=== PATIENT | male | born 1945 | race Caucasian/White ===

== ENCOUNTER 2018-04-13 17:19 | Emergency (ER) | payer OTHER ==
[2018-04-13 18:09] LABS: Urine Blood NEGATIVE (NEG); Urine Glucose NEGATIVE (NEG); Urine Protein NEGATIVE (NEG); Urine pH 5.5 (5.0-7.0)
[2018-04-13 18:19] LABS: Urine Bacteria <20 /HPF (NONE SEEN); Urine Culture Reflex Order NOT NEEDED; Urine RBC <5 /HPF (NONE SEEN)
--- NOTE | 2018-04-13 18:19 | RAD REPORT ---
EXAM DESCRIPTION: CT - Stone Protocol - 04/13/2018 6:10 pm CLINICAL HISTORY: Right-sided flank COMPARISON: None. TECHNIQUE: Axial 5 mm thick images were obtained without oral or IV contrast. The [id number] span s the entirety of the system including uppermost abdomen and lung bases. All CT scans are performed using dose optimization technique as appropriate and may include automated exposure control or mA/KV adjustment according to patient size. FINDINGS: No hydronephrosis is present and no obstructing ureteral calculi. No suspicious renal mass es. Isodense masses and pyelonephritis are not excluded on a stone protocol CT scan. No urinary bladd er suspicious finding. Renal vascular calcifications are present. Imaged portions of the liver, spleen and pancreas show no suspicious findings on non-contrast imaging . Cholecystectomy clips are present. No biliary tree dilatation. A mild, symmetric adrenal gland full ness is present doubtful as being clinically significant. Vigil of the stomach appear thickened; however, there is almost no content within the lumen. Assessme nt is limited. No small bowel dilatation. Moderate stool volume scattered throughout the colon. Sigmo id anastomotic site shows no acute finding. A right inguinal hernia is present. Small bowel extends into the origin of each inguinal canal. No wa ll thickening or edema. No congestion of the adjacent fat. No free air, free fluid or inflammatory st randing. Disc and bony degenerative changes are present. Dense arterial tree calcifications are present. Scarring and/ or atelectasis present anterior left lung base. No pericardial effusion. IMPRESSION: No hydronephrosis, obstructing calculus or acute finding identifiable. Isodense masses and pyelonephritis are not excluded on stone protocol technique. Right inguinal hernia is present. A loop of small bowel extends into the origin of each inguinal brittney l. The involved bowel wall is not thickened or edematous and there is no congestion or edema in the a djacent fat. Significance is questionable. Moderate stool volume throughout the colon. No acute colon process.
--- NOTE | 2018-04-13 18:58 | ER ---
Nurse's Notes [facility] Name: Marcos Macdonald Age: 72 yrs Sex: Male : 1945 Arrival Date: 04/13/2018 Time: 17:23 Bed 20 Private MD: Manuel Sen Diagnosis: Low back pain Presentation: 04/13 17:27 Presenting complaint: Patient states: I have been having right lower back pain for the la1 last week and for the last few months I have been having urinary problems where I try to pee and it feels like I am done then have to go again a few minutes later. Transition of care: patient was not received from another setting of care. Onset of symptoms was April 13, 2018. Risk Assessment: Do you want to hurt yourself or someone else? Patient reports no desire to harm self or others. Initial Sepsis Screen: Does the patient meet any 2 criteria? No. Patient's initial sepsis screen is negative. Does the patient have a suspected source of infection? No. Patient's initial sepsis screen is negative. Care prior to arrival: None. 17:27 Method Of Arrival: Ambulatory la1 17:27 Acuity: KERRY 3 la1 Historical: - Allergies: 17:29 NKA; la1 - PMHx: 17:29 Diabetes - NIDDM; Hyperlipidemia; Hypertension; Myocardial infarction; la1 - Immunization history:: Adult Immunizations up to date. - Social history:: Smoking status: Patient uses tobacco products, smokes two packs cigarettes per day. - Ebola Screening: : No symptoms or risks identified at this time. Screenin:53 Abuse screen: Denies threats or abuse. Denies injuries from another. Nutritional aj screening: No deficits noted. Tuberculosis screening: No symptoms or risk factors identified. Fall Risk None identified. Assessment: 18:53 General: Appears in no apparent distress. comfortable, Behavior is calm, cooperative, aj appropriate for age. Pain: Denies pain. Neuro: Level of Consciousness is awake, alert, obeys commands, Oriented to person, place, time, situation, Appropriate for age. Respiratory: Airway is patent Respiratory effort is even, unlabored, Respiratory pattern is regular, symmetrical. : Reports urgency. Derm: Skin is intact, is healthy with good turgor, Skin is pink, warm \T\ dry. normal. Vital Signs: 17:28 BP 133 / 66; Pulse 90; Resp 16; Temp 97.8(O); Pulse Ox 100% on R/A; Weight 68.04 kg; la1 Height 5 ft. 8 in. (172.72 cm); 17:28 Body Mass Index 22.81 (68.04 kg, 172.72 cm) la1 ED Course: 17:23 Patient arrived in ED. es 17:23 Manuel Sen MD is Private Physician. es 17:28 Triage completed. la1 17:29 Arm band placed on right wrist. la1 17:31 Ethel Akins, RN is Primary Nurse. aj 17:34 Magdi Butler MD is Attending Physician. gs 18:10 CT Stone Protocol In Process Unspecified. EDMS 18:53 Patient has correct armband on for positive identification. aj 18:53 No provider procedures requiring assistance completed. IV discontinued, intact, aj bleeding controlled, No redness/swelling at site. Pressure dressing applied. Administered Medications: No medications were administered Outcome: 18:58 Discharge ordered by . 19:08 Discharged to home ambulatory. aj 19:08 Condition: good 19:08 Discharge instructions given to patient, Instructed on discharge instructions, follow up and referral plans. medication usage, Demonstrated understanding of instructions, follow-up care, medications, Prescriptions given X 1. 19:09 Patient left the ED. aj Signatures: Dispatcher [employer] Ethel Bueno, RN Yulia Laguna Lee RN RN la1 Magdi Butler MD MD
--- NOTE | 2018-04-13 18:58 | EDPHYS ---
Physician Documentation [facility] Name: Marcos Macdonald Age: 72 yrs Sex: Male : 1945 Arrival Date: 04/13/2018 Time: 17:23 Bed 20 Private MD: Manuel Sen ED Physician Magdi Butler HPI: 04/13 18:53 This 72 yrs old Male presents to ER via Ambulatory with complaints of Back gs Pain. 18:53 The patient presents with pain that is acute. The symptoms are located in the right low gs back. Onset: The symptoms/episode began/occurred 2 week(s) ago. The pain radiates to the lateral aspect of right thigh. Associated signs and symptoms: Pertinent negatives: abdominal pain, chest pain, incontinence. Modifying factors: the patient symptoms are aggravated by any movement. Severity of symptoms: At their worst the symptoms were moderate, in the emergency department the symptoms have improved, mildly. The patient has not experienced similar symptoms in the past. Historical: - Allergies: 17:29 NKA; la1 - PMHx: 17:29 Diabetes - NIDDM; Hyperlipidemia; Hypertension; Myocardial infarction; la1 - Immunization history:: Adult Immunizations up to date. - Social history:: Smoking status: Patient uses tobacco products, smokes two packs cigarettes per day. - Ebola Screening: : No symptoms or risks identified at this time. ROS: 18:53 All other systems are negative. gs 18:57 Abdomen/GI: Negative for bowel incontinence. gs 18:57 : Positive for urgency, no retention. Exam: 18:53 Head/Face: Normocephalic, atraumatic. Eyes: Pupils equal round and reactive to light, gs extra-ocular motions intact. Lids and lashes normal. Conjunctiva and sclera are non-icteric and not injected. Cornea within normal limits. Periorbital areas with no swelling, redness, or edema. ENT: Nares patent. No nasal discharge, no septal abnormalities noted. Tympanic membranes are normal and external auditory canals are clear. Oropharynx with no redness, swelling, or masses, exudates, or evidence of obstruction, uvula midline. Mucous membranes moist. Neck: Trachea midline, no thyromegaly or masses palpated, and no cervical lymphadenopathy. Supple, full range of motion without nuchal rigidity, or vertebral point tenderness. No Meningismus. Chest/axilla: Normal chest wall appearance and motion. Nontender with no deformity. No lesions are appreciated. Cardiovascular: Regular rate and rhythm with a normal S1 and S2. No gallops, murmurs, or rubs. Normal PMI, no JVD. No pulse deficits. Respiratory: Lungs have equal breath sounds bilaterally, clear to auscultation and percussion. No rales, rhonchi or wheezes noted. No increased work of breathing, no retractions or nasal flaring. Abdomen/GI: Soft, non-tender, with normal bowel sounds. No distension or tympany. No guarding or rebound. No evidence of tenderness throughout. MS/ Extremity: Pulses equal, no cyanosis. Neurovascular intact. Full, normal range of motion. Neuro: Awake and alert, GCS 15, oriented to person, place, time, and situation. Cranial nerves II-XII grossly intact. Motor strength 5/5 in all extremities. Sensory grossly intact. Cerebellar exam normal. Normal gait. 18:53 Constitutional: The patient appears alert, awake. 18:53 Back: CVA tenderness, that is mild, is noted on the right. Vital Signs: 17:28 BP 133 / 66; Pulse 90; Resp 16; Temp 97.8(O); Pulse Ox 100% on R/A; Weight 68.04 kg; la1 Height 5 ft. 8 in. (172.72 cm); 17:28 Body Mass Index 22.81 (68.04 kg, 172.72 cm) la1 MDM: 17:45 Patient medically screened. 18:53 Differential diagnosis: Abdominal Aortic Aneurysm chronic back pain, ruptured disc, gs sprain. Data reviewed: vital signs, nurses notes. Response to treatment: the patient's symptoms have mildly improved after treatment. 04/13 17:48 Order name: Urine Microscopic Only; Complete Time: 18:20 04/13 17:58 Order name: Urine Dipstick--Ancillary (enter results); Complete Time: 18:20 eb 04/13 17:48 Order name: CT Stone Protocol; Complete Time: 18:20 04/13 17:48 Order name: Urine Dipstick-Ancillary (obtain specimen); Complete Time: 19:04 Administered Medications: No medications were administered Disposition: 04/13/18 18:58 Discharged to Home. Impression: Low back pain. - Condition is Stable. - Discharge Instructions: Back Pain, Adult. - Prescriptions for Prednisone 20 mg Oral Tablet - take 1 tablet by ORAL route once daily for 5 days; 5 tablet. - Medication Reconciliation Form, Thank You Letter, Antibiotic Education, Prescription Opioid Use form. - Follow up: Private Physician; When: 2 - 3 days; Reason: Re-evaluation by your physician. Signatures: Dispatcher [employer] EDEthel Wallis RN RN aj Attema, Lee, RN RN la1 Magdi Butler MD MD gs Corrections: (The following items were deleted from the chart) 19:09 18:58 04/13/2018 18:58 Discharged to Home. Impression: Low back pain. Condition is aj Stable. Forms are Medication Reconciliation Form, Thank You Letter, Antibiotic Education, Prescription Opioid Use. Follow up: Private Physician; When: 2 - 3 days; Reason: Re-evaluation by your physician. gs
[2018-04-13 19:19] VITALS: BP 133/66; TEMP 97.8; O2SAT 100
== END 2018-04-13 19:09 | disposition home or self-care (01) ==
LOC: ER 17:19
DX: M54.5 Low back pain (principal); E11.9 Type 2 diabetes mellitus without complications; E78.5 Hyperlipidemia, unspecified; I10 Essential (primary) hypertension; F17.210 Nicotine dependence, cigarettes, uncomplicated
CPT/HCPCS: 74176; 76377; 81003; 81015; 99283

== ENCOUNTER 2019-02-09 11:49 | Day surgery (SDC) | payer OTHER ==
--- NOTE | 2019-02-03 08:55 | RAD REPORT ---
EXAM DESCRIPTION: RAD - Chest Pa And Lat (2 Views) - 02/03/2019 8:46 am CLINICAL HISTORY: preop Chest pain. COMPARISON: CHEST PA AND LAT 2 VIEW dated 09/18/2015; CHEST SINGLE VIEW dated 09/15/2015; CHEST SINGLE VIEW dated 09/10/2015; CHEST PA AND LAT 2 VIEW dated 10/03/2014; Lung Cancer Screening CT W/O dated 12/22 FINDINGS: Emphysematous changes are present throughout the lungs. Small linear area of scarring or a telectasis seen in the lingula. The heart is normal in size. Costophrenic angle blunting is present l eft, likely pleural thickening. IMPRESSION: Prominent COPD.
[2019-02-03 09:40] LABS: Absolute Lymphocytes (CBC) 2.7 K/uL (0.7-4.9); Absolute Monocytes 0.6 K/uL (0.1-1.3); Absolute Neutrophil 4.9 K/uL (1.8-8.0); Basophils % 0.3 % (0-1.3); Eosinophils % 0.7 % (0-4.4); Hematocrit 48.4 % (39.6-49.0); Lymphocytes % 32.9 % (15.3-44.8); Monocytes % 6.8 % (3.3-12.3); RBC Red Blood Cell Count 4.86 M/uL (4.33-5.43)
[2019-02-03 09:46] LABS: Protime INR 0.9
[2019-02-03 10:05] LABS: Potassium 4.1 mmol/L (3.5-5.1)
--- NOTE | 2019-02-04 11:37 | EKG ---
Test Date: 2019-02-03 Test Time: 08:31:26 Intake Man: ROB MEASUREMENT RESULTS: Intervals: Rate: 94 OK: 142 QRSD: 82 QT: 342 QTc: 427 [place]: P: 70 OK: 142 QRS: 66 T: 50 INTERPRETIVE STATEMENTS: Sinus rhythm with occasional premature ventricular complexes Otherwise normal ECG Compared to ECG 11/11/2016 11:06:19 Ventricular premature complex(es) now present Electronically Signed On 02-04-19 07:39:04 CDT by Jay Castañeda
[~2019-02-09 11:49] MED LIST: HEPA 1000U/500MLS 2,000 UNIT/1,000 ML BAG IV ONE
[2019-02-09] MEDS ORDERED: NA CHLORIDE 0.9% 500 ML ONE (12:12)
[2019-02-09] MEDS ORDERED: LIDOCAINE 1% MPF 30 ML VIAL ONE (12:37)
[2019-02-09] MEDS ORDERED: HEPA 1000U/500MLS 1,000 UNIT/500 ML BAG IV ONE (12:38)
[2019-02-09] MEDS ORDERED: MIDAZOLAM HCL 2 MG/2 ML INJ ONE (12:47)
[2019-02-09] MEDS ORDERED: FENTANYL CITR 100 MCG/2 ML ONE ×2 (12:47→13:19)
[2019-02-09 15:13] VITALS: BP 118/68
[2019-02-09 15:27] VITALS: O2SAT 100
--- NOTE | 2019-02-09 20:43 | OP ---
Date of Procedure: 02/09/2019 Surgeon: Kaushik Tai MD Dialysis Equipment Technician: Michael Kolb and Sheila Caicedo. Procedures: Abdominal angiogram with runoff with selective bilateral common iliac artery angiogram. Indication: PAD and claudication. History: Mr. Macdonald is a 73-year-old male. He has diabetes, hypertension, dyslipidemia, PAD, admi tted for angiography secondary to PAD and claudication. He was prepped and draped in the routine cholo rile fashion. He was given 4 mg of Versed for IV sedation. 6-Stateless sheath was introduced in the ri t common femoral artery. Abdominal angiogram with runoff showed a possible stenosis in the proxima l left common iliac. I inserted a sheath in the left groin 6-Stateless as well. Angiography was done. I used a Glidewire to cross the lesion, and I used a 6-Stateless JR4, which crossed the lesion. I chelsey ured the gradient before and after the lesion, and there were no gradient. I estimated it to be abou t a 40% stenosis with increased calcifications. He had normal renals. He had a small infrarenal abd ominal aortic aneurysm, probably about 3 cm. Overall, angiography showed 100% occlusion of the right SFA, multiple 50-70% stenosis in the left SFA, diffuse plaquing distally, diffuse plaquing in the ri t common iliac artery. The patient tolerated the procedure well. There were no complications. Blood Loss: 10 cc. Anesthesia: Total conscious sedation was 45 minutes. Final Diagnosis: Severe peripheral arterial disease. Plan: For now is for medical therapy. He will hold Glucophage for 48 hours. Start statin. Conside r bilateral fem-pop if his symptoms persist. NB/MODL Voice ID: [id number] Report ID: [id number]
--- NOTE | 2019-02-10 17:20 | OP ---
Date of Procedure: 02/09/2019 Surgeon: Kaushik Tai MD Break Out Man: Michael Kolb and Shani Caicedo. Procedures: Abdominal angiogram with runoff with bilateral selective common femoral artery angiogram . Indications: Peripheral arterial disease and claudication. History: Mr. Macdonald is 73, has diabetes, hypertension, dyslipidemia, tobacco abuse, documented CAD . The last time we investigated him was in 2017, came back with worsening symptoms. 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 He was given 2 mg of Versed for IV sedation. He was pre pped and draped in the routine sterile fashion. A 6-[place] Island[place] sheath was initially introduced in the [facility] common femoral artery. Abdominal angiogram with runoff was done using a pigtail catheter. This showed a complete occlusion of his right SFA. He had diffuse disease in the left SFA. He had diffus e plaquing of the right common iliac artery. He had a small abdominal aortic aneurysm. He has diffu se disease bilaterally below the knees. He had what appeared to be a stenosis on the left common opal ac with heavy calcification. I proceeded to put a sheath, a 6-[place] Islander, in the left common femoral art arturo and across that lesion with a Neftali catheter, measured the gradient across the stenosis on the left common iliac, and there were no gradient. Angiography was done selectively in the right common iliac and the left common iliac to determine the severity of disease [id number]. Both popliteal were open, but below that, there were diffuse disease. There were no complications. Both groins were closed using Angio-Seal. Blood Loss: 10 cc. Final Diagnosis: Severe peripheral arterial disease. Plan: Right femoral-popliteal initially and then possible medical therapy for the left leg. The pat ient will be given a CD, and he will have an appointment with Dr. Pina in the near future at [facility]. Anesthesia: Total conscious sedation was 45 minutes. NB/MODL Voice ID: [id number] Report ID: [id number]
== END 2019-02-09 15:44 | disposition home or self-care (01) ==
LOC: CCL 11:49
DX: E11.51 Type 2 diabetes mellitus with diabetic peripheral angiopathy without gangrene (principal); I70.218 Atherosclerosis of native arteries of extremities with intermittent claudication, other extremity; I10 Essential (primary) hypertension; J44.9 Chronic obstructive pulmonary disease, unspecified; I65.9 Occlusion and stenosis of unspecified precerebral artery; I25.10 Atherosclerotic heart disease of native coronary artery without angina pectoris; F17.210 Nicotine dependence, cigarettes, uncomplicated; Z79.82 Long term (current) use of aspirin; Z79.84 Long term (current) use of oral hypoglycemic drugs; Z79.51 Long term (current) use of inhaled steroids; Z79.899 Other long term (current) drug therapy; Z95.5 Presence of coronary angioplasty implant and graft
CPT/HCPCS: 93005; 85025; 80048; 36415; 85610; 82962; 85730; 71046; 36200; 75630; C1893; J2250; J3010 ×2

== ENCOUNTER 2020-01-20 11:08 | Emergency (ER) | payer OTHER ==
[2020-01-20] MEDS ORDERED: LIDOCAINE 1% W/EPI 1:100,000 MDV 20 ML VIAL ONE (11:25)
--- OUTSIDE RECORDS SUMMARY | 2020-01-20 11:52 | XMS REPORT | Clinical Summary ---
:1945 Author Organization [facility] Address [address] [place] [address] Care Team Providers Name Role Phone MD Mckinley Primary Care Provider Allergies Active Allergy Reactions Severity Noted Date Comments Azithromycin Shortness Of Breath High Medications Medication Sig Dispensed Refills Start Date End Date Status metFORMIN Take 1,000 mg 0 Active (GLUCOPHAGE) 1000 MG by mouth 2 tablet (two) times daily with breakfast and dinner. doxycycline hyclate Take 50 mg by 0 Active 50 mg Tab mouth daily. lisinopril Take 10 mg by 0 Activ e (PRINIVIL,ZESTRIL) 10 mouth daily. MG tablet glipiZIDE (GLUCOTROL) Take 5 mg by 0 Active 5 MG tablet mouth daily. tamsulosin (FLOMAX) Take 0.4 mg by 0 Active 0.4 mg Cap 24 hr mouth daily. capsule finasteride (PROSCAR) Take 5 mg by 0 Active 5 mg tablet mouth daily. clopidogrel (PLAVIX) Take 75 mg by 0 Active 75 mg tablet mouth daily. lovastatin (MEVACOR) Take 20 mg by 0 Active 20 MG tablet mouth nightly. budesonide-formoterol Inhale 2 puffs 0 Active (SYMBICORT) 160-4.5 by mouth via mcg/actuation inhaler inhaler 2 (two) times daily. tiotropium (SPIRIVA) Inhale 18 mcg 0 Active 18 mcg inhalation by mouth via capsule inhaler daily. multivitamin per Take 1 tablet 0 Active tablet by mouth daily. omega-3 fatty Take 1 g by 0 Acti ve acids-fish oil mouth daily. 340-1,000 mg Cap per capsule cinnamon bark Take 1,000 mg 0 Ac tive (CINNAMON) 500 mg by mouth capsule daily. albuterol HFA Inhale 1 puff 0 Ac tive (VENTOLIN HFA) 90 by mouth via mcg/actuation inhaler inhaler every 6 (six) hours as needed for Wheezing. niacin 500 MG tablet Take 500 mg by 0 Active mouth daily with breakfast. cholecalciferol, Take 2,000 0 Ac tive vitamin D3, 2,000 Units by mouth unit Tab daily. cyanocobalamin 1000 Take 1,000 mcg 0 Active MCG tablet by mouth daily. aspirin 81 MG EC Take 81 mg by 0 Active tablet mouth daily. cyclobenzaprine Take 5 mg by 0 A ctive (FLEXERIL) 5 MG mouth 2 (two) tablet times daily as needed. traMADol (ULTRAM) 50 Take 1 tablet 30 tablet 0 02/26/2019 Active mg tablet (50 mg total) by mouth 2 (two) times daily as needed. Max Daily Amount: 100 mg traMADol (ULTRAM) 50 Take 50 mg by 0 02/26 Discontinued mg tablet mouth 2 (two) 9 times daily as needed. Active Problems Problem Noted Date Peripheral vascular disease, unspecified 02/25/2019 PVD (peripheral vascular disease) 02/18/2019 COPD (chronic obstructive pulmonary disease) Hypertension Diabetes mellitus type 2, noninsulin dependent Hyperlipidemia Encounters Date Type Specialty Care Team Description 03/18/2019 Hospital Encounter Cardiology Silvana, Swelling Mumtaz Anand MD 03/18/2019 Office Visit Cardiology Silvana Swelling (Prima ry Dx); Mumtaz Anand Post-operati ve state 03/08/2019 Office Visit Cardiology Silvana, Postoperative s kumar Mumtaz Anand (Primary Dx) 02/25/2019 Travel 02/24/2019 Anesthesia Event Jewel Benitez, RAI 02/24/2019 Surgery Silvana, BYPASS,FEMORAL- [place] NISHANT Ji MD 02/24/2019 - Hospital Encounter Cardiology Silvana, 02/26/2019 MD Stu Ji Lubna Syed, MD 02/24/2019 Travel 02/18/2019 Hospital Encounter Radiology Mumtaz Pina MD 02/18/2019 Hospital Encounter Mumtaz Pina MD 02/18/2019 Office Visit Cardiology Silvana, Chronic obstruc tive pulmonary disease, unspecified COPD type (HCC); Mumtaz Anand, Essential hy pertension; Diabetes arron type 2, noninsulin dependent (HCC); Hyperlipidemia, unspecified hyperlipidemia type; PVD (peripheral vascular disease) (HCC) 02/18/2019 Orders Only General Internal Medicine after 01/19/2019 Family History Medical History Relation Name Comments Diabetes Mother Relation Name Status Comments Mother Social History Tobacco Use Types Packs/Day Years Used Date Current Every Day Smoker 1.5 57 Smokeless Tobacco: Never Used Tobacco Cessation: Ready to Quit: No; Co unseling Given: Yes Alcohol Use Drinks/Week oz/Week Comments No Alcohol Habits Answer Date Recorded How often do you have a drink containing alcohol? Never 02/18/2019 How many drinks containing alcohol do you have on a typical Not asked day when you are drinking? How often do you have six or more drinks on one occasion? No t asked Sex Assigned at Date Recorded Not on file Job Start Date Occupation Industry Not on file Not on file Not on file Travel History Travel Start Travel End No recent travel history available. Last Filed Vital Signs Vital Sign Reading Time Taken Blood Pressure 127/58 03/18/2019 9:39 AM CDT Pulse 90 03/18/2019 9:39 AM CDT Temperature 36.1 C (96.9 F) 03/18/2019 9:39 AM CDT Respiratory Rate 14 03/18/2019 9:39 AM CDT Oxygen Saturation 98% 03/18/2019 9:39 AM CDT Inhaled Oxygen Concentration - - Weight 63.5 kg (140 lb) 03/18/2019 9:39 AM CDT Height 172.7 cm (5' 8") 03/18/2019 9:39 AM CDT Body Mass Index 21.29 03/18/2019 9:39 AM CDT Plan of Treatment Not on file Implants Implanted Type Area Metal Tile Setter Device Shelf Model / Serial Identifier Expiration / Lot Date Sealptfe Gelatin Sealed Ultrathin Wall Straight Wrapped Full y Reinforced Right: TERUMO VASCUTEK 12/07/2019 [id number] / Implanted: Qty: 1 on 02/24/2019 by Mumtaz Pina MD Leg [id number] / [id number] Procedures Procedure Name Priority Date/Time Associated Diagnosis Comme nts PERIPHERAL VASCULAR 03/18/2019 9:20 REPORT - SCAN PM CDT VENOUS DOPPLER LEG, Routine 03/18/2019 11:44 Swelling Resu lts for this RIGHT AM CDT procedure are i n the results section. RHYTHM STRIP - SCAN 03/02/2019 3:14 PM CDT RHYTHM STRIP - SCAN 03/02/2019 7:50 AM CDT POCT-GLUCOSE METER Routine 02/26/2019 8:10 Resul ts for this AM CDT procedure are i n the results section. CBC W/PLT COUNT & Routine 02/26/2019 5:23 Result s for this AUTO DIFFERENTIAL AM CDT procedure are in the results section. BASIC METABOLIC PANEL Routine 02/26/2019 5:23 Re sults for this (7) AM CDT procedure are i n the results section. CBC W/PLT COUNT & Routine 02/26/2019 5:23 Result s for this AUTO DIFFERENTIAL AM CDT procedure are in the results section. POCT-GLUCOSE METER Routine 02/25/2019 10:15 Resul ts for this PM CDT procedure are i n the results section. TRANSFUSION SERVICE 02/25/2019 6:00 REPORT - SCAN PM CDT CBC W/PLT COUNT & Routine 02/25/2019 8:58 Result s for this AUTO DIFFERENTIAL AM CDT procedure are in the results section. BASIC METABOLIC PANEL Routine 02/25/2019 8:58 Re sults for this (7) AM CDT procedure are i n the results section. CBC W/PLT COUNT & Routine 02/25/2019 8:58 Result s for this AUTO DIFFERENTIAL AM CDT procedure are in the results section. HGB/HCT (H&H) - STAT Routine 02/24/2019 1:00 Res ults for this LAB PM CDT procedure are i n the results section. GLUCOSE-STAT LAB Routine 02/24/2019 1:00 Results for this PM CDT procedure are i n the results section. POTASSIUM-STAT LAB Routine 02/24/2019 1:00 Resul ts for this PM CDT procedure are i n the results section. SODIUM NA-STAT LAB Routine 02/24/2019 1:00 Resul ts for this PM CDT procedure are i n the results section. BLOOD GAS, ARTERIAL Routine 02/24/2019 1:00 Resu lts for this PM CDT procedure are i n the results section. RRL CRITICAL LABS Routine 02/24/2019 1:00 Result s for this (ABG,NA,K,H&H,GLUCOSE PM CDT proced ure are in ) the results section. HGB/HCT (H&H) - STAT STAT 02/24/2019 12:04 Res ults for this LAB PM CDT procedure are i n the results section. GLUCOSE-STAT LAB STAT 02/24/2019 12:04 Results for this PM CDT procedure are i n the results section. POTASSIUM-STAT LAB STAT 02/24/2019 12:04 Resul ts for this PM CDT procedure are i n the results section. SODIUM NA-STAT LAB STAT 02/24/2019 12:04 Resul ts for this PM CDT procedure are i n the results section. BLOOD GAS, ARTERIAL STAT 02/24/2019 12:04 Resu lts for this PM CDT procedure are i n the results section. CALCIUM, IONIZED STAT 02/24/2019 12:04 Results for this PM CDT procedure are i n the results section. RRL CRITICAL LABS STAT 02/24/2019 12:04 Result s for this (ABG,NA,K,H&H,GLUCOSE PM CDT proced ure are in ) the results section. PREPARE RBC STAT 02/24/2019 12:01 Results for this PM CDT procedure are i n the results section. ABORH, MANUAL STAT 02/24/2019 10:21 Results fo r this AM CDT procedure are i n the results section. BYPASS,FEMORAL-POPLIT 02/24/2019 9:45 Peripheral vasc ular EAL AM CDT disease, unspecified (HCC) Special Needs (ICU BED NEEDED) TRANSFUSION SERVICE REPORT - 02/19/2019 6:02 PM CDT SCAN XR CHEST 2 VIEWS Routine 02/18/2019 1:20 PM CDT Results for this procedure are i n the results section . CBC W/PLT COUNT & AUTO Routine 02/18/2019 12:19 PM CDT Results for this DIFFERENTIAL procedure are i n the results section . TYPE AND SCREEN, AUTOMATED Routine 02/18/2019 12:19 PM CDT Results for this procedure are i n the results section . COMPREHENSIVE METABOLIC Routine 02/18/2019 12:19 PM CDT Results for this PANEL procedure are i n the results section . LIPID PANEL Routine 02/18/2019 12:19 PM CDT Resu lts for this procedure are i n the results section . HEMOGLOBIN A1C Routine 02/18/2019 12:19 PM CDT Re sults for this procedure are i n the results section . CBC W/PLT COUNT & AUTO Routine 02/18/2019 12:19 PM CDT Results for this DIFFERENTIAL procedure are i n the results section . PROTHROMBIN TIME/INR Routine 02/18/2019 12:19 PM CDT Results for this procedure are i n the results section . PLATELET AGGREGATION: Routine 02/18/2019 12:19 PM CDT Results for this FUNCTION SCREEN procedure ar e in the results section . ECG 12-LEAD Routine 02/18/2019 11:57 AM CDT Procedure Note - Interface, External Ris In - 02/18/2019 3:58 PM CDT Ventricular Rate 98 BPM Atrial Rate 98 BPM P-R Interval 146 ms QRS Duration 90 ms Q-T Interval 336 ms QTC Calculation(Bazett) 428 ms P Cordell 80 degrees R Cordell 56 degrees T Cordell 57 degrees Sinus rhythm with Premature atrial complexes Otherwise normal ECG No previous ECGs available ECG 12-LEAD Routine 02/18/2019 11:57 AM CDT Resu lts for this procedure are in the results section . after 01/19/2019 Results PERIPHERAL VASCULAR REPORT - SCAN (03/18/2019 9:20 PM CDT) Narrative Performed At This result has an attachment that is no t available. Venous doppler leg, right (03/18/2019 11:44 AM CDT) [facility] ECHO HEAR TLAB MKCKESSON CPACS Specimen Impressions Performed At Right Impression [facility] ECHO HEARTLAB [facility] CPACS 1. There is no deep venous obstruction in the common femoral, profunda femoral, femoral, popliteal, posterior tibial or peroneal veins. 2. There is no superficial venous obstruction in the great saphenous vein. 3. There are two nonvascular fluid collections seen on the medial aspect of the knee. Number one is next to the bypass graft with dimensions 2.2 cm x 2.0 cm x 1.3 cm. Number 2 is just under the skin with a measurement of 2.4 cm x 1.4 cm x 2.1 cm. 4. Spectral analysis of the waveforms show normal respirophasic variation with the visualized venous segments. Left Impression Not ordered. Conclusions Summary Venous duplex imaging and compression of the right lower extremity was performed. The veins were adequately visualized. The right venous system was patent and compressible with no evidence of thrombus. The venous Doppler waveforms were phasic with resp iration. Incidental finding: There are two nonvascular fluid collections seen on the medial aspect of the knee. Number one is next to the bypass graft with dimensions 2.2 cm x 2.0 cm x 1.3 cm. Number 2 is just under the skin with a measurement of 2.4 cm x 1.4 cm x 2.1 cm. Signature Velocities are measured in cm/s ; Diameters are measured in cm Narrative Performed At PV LAB - Lower Extremities DVT Study [facility] ECHO HEARTLAB [facility] Demographics Patient Name MARCOS MACDONALD Date of Study03/18/2019 [id number] Age 73 Visit Number [id number] Male Accession Number [id number] of Birth1945 ReferringSilvana Pandya MD Room Number Physician SonographKelton Medrano. Interpreting Cachorro Wilson MD T, ARDMSPhysician Procedure Type of Study: Veins: Lower Extremities DVT Study, VENOUS DOPPLER LEG, RIGHT. Indications for Study:Leg swelling. Patient Status:Routine. Study Location:Vascular Lab. Technical Quality:Adequate visualization . - Results were reported to:doctors nurse at 12:00 on 03/18/2019.. Risk Factors History of Disease +---------+----+ + !Diagnosis!Date!Comments ! +---------+----+ + !Other!!COPD, CAD, DM, PVD, SMOKER ! +---------+----+ + Procedure Note Interface, External Ris In - 03/18/2019 2:12 PM CDT PV LAB - Lower Extremities DVT Study Demographics Patient Name MARCOS MACDONALD Date of Study 03/18/2019 Age 73 Visit Number [id number] Gender Male Accession Number [id number] Date of 1945 Referring Silvana Pandya MD Room Number Physician Shake Out Worker Marcos Medrano. Interpreting Cachorro Wilson MD RVT, ARS Physician Procedure Type of Study: Veins: Lower Extremities DVT Study, TONY OUS DOPPLER LEG, RIGHT. Indications for Study:Leg swelling. Patient Status:Routine. Study Location:Vascular Lab. Technical Quality:Adequate visualization . - Results were reported to:silas duron se at 12:00 on 03/18/2019.. Risk Factors History of Disease +---------+----+ + !Diagnosis!Date!Comments ! +---------+----+ + !Other ! !COPD, CAD, DM, PVD, SMOK ER ! +---------+----+ + Impressions Right Impression 1. There is no deep venous obstruction i n the common femoral, profunda femoral, femoral, popliteal, posterior t ibial or peroneal veins. 2. There is no superficial venous obstru ction in the great saphenous vein. 3. There are two nonvascular fluid colle ctions seen on the medial aspect of the knee. Number one is next to the byme ss graft with dimensions 2.2 cm x 2.0 cm x 1.3 cm. Number 2 is just under the skin with a measurement of 2.4 cm x 1.4 cm x 2.1 cm. 4. Spectral analysis of the waveforms sh ow normal respirophasic variation with the visualized venous segments. Left Impression Not ordered. Conclusions Summary Venous duplex imaging and compression o f the right lower extremity was performed. The veins were adequately vi sualized. The right venous system was patent and compressible with no diego dence of thrombus. The venous Doppler waveforms were phasic with resp iration. Incidental finding: There are two nonva scular fluid collections seen on the medial aspect of the knee. Number o ne is next to the bypass graft with dimensions 2.2 cm x 2.0 cm x 1.3 cm. Nu mber 2 is just under the skin with a measurement of 2.4 cm x 1.4 cm x 2.1 cm. Signature Velocities are measured in cm/s ; Diamet ers are measured in cm Performing Organization Address City/[facility] Phone Number [facility] ECHO HEARTLAB MK[facility]ESSON CPACS RHYTHM STRIP - SCAN (03/02/2019 3:14 PM CDT)Only the most recent of2 results within the time period is included. Narrative Performed At This result has an attachment that is no t available. POC-Glucose meter (02/26/2019 8:10 AM CDT)Only the most recent of2 results within the time period is included. POC-Glucose Meter 162 (H)Comment: TESTED AT 70 - 110 mg/dL [facility] [address] [facility] [address] Specimen Blood Performing Organization Address City/[facility]/Zipcode Phone Number [address] [address] CENTER CBC with platelet count + automated diff (02/26/2019 5:23 AM CDT)Only the most recent of3 resultswithin the time period is included. WBC 9.6 3.5 - 10.5 K/L [facility] RBC 4.23 (L) 4.63 - 6.08 M/L [facility] Hemoglobin 14.0 13.7 - 17.5 GM/DL [facility] Hematocrit 41.9 40.1 - 51.0 % [facility] MCV 99.1 (H) 79.0 - 92.2 fL [facility] MCH 33.1 (H) 25.7 - 32.2 pg [facility] MCHC 33.4 32.3 - 36.5 GM/DL [facility] RDW 13.2 11.6 - 14.4 % [facility] Platelets 162 150 - 450 K/CU MM [facility] MPV 9.4 9.4 - 12.4 fL [facility] nRBC 0 0 - 0 /100 WBC [facility] % Neutros 60 % [facility] % Lymphs 28 % [facility] % Monos 10 % [facility] % Eos 1 % [facility] % Baso 0 % [facility] # Neutros 5.80 (H) 1.78 - 5.38 K/L [facility] # Lymphs 2.74 1.32 - 3.57 K/L [facility] # Monos 0.96 (H) 0.30 - 0.82 K/L [facility] # Eos 0.08 0.04 - 0.54 K/L [facility] # Baso 0.03 0.01 - 0.08 K/L [facility] Immature Granulocytes-Relative 0 0 - 1 % C [facility] Specimen Blood Performing Organization Address City/State/Zipcode Phone Number [facility] [address] [place] [address] CENTER Basic Metabolic Panel (02/26/2019 5:23 AM CDT)Only the most recent of2 results within the time period is included. Sodium 139 136 - 145 meq/L [facility] Potassium 4.3 3.5 - 5.1 meq/L [facility] Chloride 107 98 - 107 meq/L [facility] CO2 25 22 - 29 meq/L [facility] BUN 25 (H) 7 - 21 mg/dL [facility] Creatinine 0.93 0.57 - 1.25 mg/dL [facility] Glucose 147 (H) 70 - 105 mg/dL [facility] Calcium 9.0 8.4 - 10.2 mg/dL [facility] EGFR 79Comment: ESTIMATED GFR IS mL/min/1.73 sq m [facility] NOT ACCURATE CREATININE [facility] CLEARANCE IN PREDICTING GLOMERULAR FILTRATION RATE. ESTIMATED GFR IS NOT APPLICABLE FOR DIALYSIS PATIENTS. Specimen Blood Performing Organization Address [facility] Phone Number [address] [address] [facility] TRANSFUSION SERVICE REPORT - SCAN (02/25/2019 6:00 PM CDT)Only the most recent of2 resultswithin the time period is included. Narrative Performed At This result has an attachment that is no t available. Potassium-Stat Lab (02/24/2019 1:00 PM CDT)Only the most recent of2 results within the time period is included. Potassium 4.0 3.6 - 5.5 meq/L [facility] Specimen Blood, Arterial Performing Organization Address [facility] Phone Number [address] [address] [facility] Sodium Na-Stat Lab (02/24/2019 1:00 PM CDT)Only the most recent of2 results within the time period is included. Sodium 139 135 - 148 meq/L [facility] Specimen Blood, Arterial Performing Organization Address [facility] Phone Number [address] [address] [facility] Glucose-Stat Lab (02/24/2019 1:00 PM CDT)Only the most recent of2 resultswithin the time period is included. Glucose 127 (H) 70 - 110 mg/dL [facility] Specimen Blood, Arterial Performing Organization Address [facility] Phone Number [address] [address] [facility] HGB/HCT (H&H)-Stat Lab (02/24/2019 1:00 PM CDT)Only the most recent of2 resultswithin the time period is included. Hemoglobin 13.9 13.0 - 16.8 g/dL [facility] Hematocrit 41.0 40.0 - 50.0 % [facility] Specimen Blood, Arterial Performing Organization Address City/State/Zipcode Phone Number [facility] [address] [place] [address] [facility] Blood gas, arterial (02/24/2019 1:00 PM CDT)Only the most recent of2 results within the time period is included. pH, Arterial 7.34 (L) 7.35 - 7.45 [facility] pCO2, Arterial 46 (H) 35 - 45 mmHg [facility] pO2, Arterial 185 (H) 80 - 90 mmHg [facility] O2 Sat, Arterial 99.2 (H) 96.0 - 97.0 % [facility] HCO3, Arterial 25 21 - 29 mmol/L [facility] Base Excess, Arterial -1.8 -2.0 - 3.0 mmol/L [facility] Patient Temperature 35.8 C [facility] FIO2 50.0 % [facility] Specimen Blood, Arterial Performing Organization Address City/[facility] Phone Number [address] [address] [facility] Calcium, Ionized (02/24/2019 12:04 PM CDT) Calcium, Ion 1.81 () 1.12 - 1.27 mmol/L [facility] pH, Blood 7.32 [facility] Specimen Blood Performing Organization Address City/State/Zipcode Phone Number [address] [address] N[facility] Prepare RBC (02/24/2019 12:01 PM CDT) CROSSMATCH COMPATIBLE SAFETRACE TX Unit ABO O Pos SAFETRACE TX UNIT NUMBER [id number] SAFETRACE TX Status READY SAFETRACE TX Blood Bank Product RED BLOOD CELLS SAFETRACE TX PRODUCT CODE [id number] SAFETRACE TX CROSSMATCH COMPATIBLE SAFETRACE TX Unit ABO O Pos SAFETRACE TX UNIT NUMBER [id number] SAFETRACE TX Status READY SAFETRACE TX Blood Bank Product RED BLOOD CELLS SAFETRACE TX PRODUCT CODE [id number] SAFETRACE TX Performing Organization Address City/[facility] Phone Number SAFETRACE TX ABORH, manual (02/24/2019 10:21 AM CDT) ABO Grouping O [facility] Rh Factor POS [facility] Specimen Blood Performing Organization Address [facility] Phone Number [facility] [address] [place] [address] XR chest 2 views (02/18/2019 1:20 PM CDT) Specimen Narrative Performed At FINAL REPORT GE RIS Chest, PA and lateral. History: Preoperative. Comparison: None available. Discussion:The cardiomediastinal sara houette and pulmonary vasculature are within normal limits. Th e lungs are clear without evidence of consolidation or effusion. There are no acute osseous abnormalities. The soft tissues are unre markable. IMPRESSION: No acute cardiopulmonary abnormality. Signed: Be Cevallos MD Report Verified Date/Time:02/18/2019 14:00:08 Reading Location: [facility] Procedure Note Interface, External Ris In - 02/18/2019 2:02 PM CDT FINAL REPORT Chest, PA and lateral. History: Preoperative. Comparison: None available. Discussion: The cardiomediastinal silho uette and pulmonary vasculature are within normal limits. Th e lungs are clear without evidence of consolidation or effusion. There are no acute osseous abnormalities. The soft tissues are unre markable. IMPRESSION: No acute cardiopulmonary abnormality. Signed: Be Cevallos MD Report Verified Date/Time: 02/18/2019 1 4:00:08 Reading Location: [facility] Mammo Reading Ro om Performing Organization Address City/[facility]/Zipcode Phone Number GE RIS Platelet Aggregation: Function Screen (02/18/2019 12:19 PM CDT) Weak ADP 79 60 - 91 % [facility] ER Plt. Function Screen 60-100% indicates [facility] Interpretation normal platelet [facility] function Pathologist: Lilian Mcadams, [facility] (electronic [facility] signature) Platelets 179 150 - 450 K/CU MM [facility] Specimen Blood Narrative Performed At Platelet Function Screen results may be [facility] falsely low with platelet counts <100,000/cu mm. for patients on clopidogrel in past two weeks Performing Organization Address [facility] Phone Number [address] [address] CENTER Type and screen, automated (02/18/2019 12:19 PM CDT) ABO/RH AUTOMATED (BEAKER) O POSITIVE [facility] Ab Scrn NEGATIVE [facility] Specimen Blood Performing Organization Address [facility]/Zipcode Phone Number [address] [address] Prothrombin time/INR (02/18/2019 12:19 PM CDT) Protime 12.8 11.9 - 14.2 seconds [facility] INR 1.0 <=5.9 [facility] Specimen Blood Narrative Performed At Effective 02/03/2019: PT Reference Range [facility] HOSPITAL Change New: 11.9-14.2Previous: 11.7-14.7 RECOMMENDED COUMADIN/WARFARIN INR THERAPY RANGES STANDARD DOSE: 2.0-3.0Includes: PROPHYLAXIS for venous thrombosis, systemic embolization; TREATMENT for venous thrombosis and/or pulmonary embolus. HIGH RISK: Target INR is 2.5-3.5 for patients wiht mechanical heart valves. Performing Organization Address [facility] Phone Number [address] [address] [place] Hemoglobin A1c (02/18/2019 12:19 PM CDT) Hemoglobin A1C 7.2 (H) 4.3 - 6.1 % [facility] Specimen Blood Performing Organization Address [facility] Phone Number [address] [address] [place] Lipid panel (02/18/2019 12:19 PM CDT) Triglycerides 80 mg/dL [facility] Cholesterol 145 mg/dL [facility] HDL 63 mg/dL [facility] LDL Calculated 66 mg/dL [facility] Specimen Blood Narrative Performed At Triglyceride [facility] Low Risk <150 Eizcthcdtj241-774 High Risk 200-499 Very High Risk>=500 Cholesterol Reference Range: Low Risk <200 Eyxwqtlfju308-304 High Risk>240 HDL Cholesterol Reference Range: Low Risk >=60 High Risk <40 LDL Cholesterol Reference Range: Optimal<100 Near Zyfxjcl490-967 Mzaamquqdd347-009 Ekym110-896 Very High >=190 Performing Organization Address [facility] Phone Number [address] [address] [place] Comprehensive metabolic panel (02/18/2019 12:19 PM CDT) Protein, Total 6.9 6.0 - 8.3 gm/dL [facility] Albumin 4.2 3.5 - 5.0 g/dL [facility] Alkaline Phosphatase 61 40 - 150 U/L [facility] Total Bilirubin 0.7 0.2 - 1.2 mg/dL [facility] Sodium 139 136 - 145 meq/L [facility] Potassium 4.6 3.5 - 5.1 meq/L [facility] Chloride 105 98 - 107 meq/L [facility] CO2 26 22 - 29 meq/L [facility] BUN 18 7 - 21 mg/dL [facility] Creatinine 1.02 0.57 - 1.25 mg/dL [facility] Glucose 153 (H) 70 - 105 mg/dL [facility] Calcium 9.5 8.4 - 10.2 mg/dL [facility] AST 13 5 - 34 U/L [facility] ALT 22 6 - 55 U/L [facility] EGFR 71Comment: ESTIMATED GFR mL/min/1.73 sq m [facility] IS NOT ACCURATE [facility] CREATININE CLEARANCE IN PREDICTING GLOMERULAR FILTRATION RATE. ESTIMATED GFR IS NOT APPLICABLE FOR DIALYSIS PATIENTS. Specimen Blood Performing Organization Address City/State/Zipcode Phone Number [facility] [address] [place] [address] NOV[place] Electrocardiogram, 12-lead (02/18/2019 11:57 AM CDT) Specimen Narrative Performed At Ventricular Rate 98 BPM GE MUSE Atrial Rate 98 BPM P-R Interval 146 ms QRS Duration 90 ms Q-T Interval 336 ms QTC Calculation(Bazett) 428 ms P Cordell 80 degrees R Cordell 56 degrees T Cordell 57 degrees Sinus rhythm with Premature atrial compl exes Otherwise normal ECG No previous ECGs available Confirmed by MD HUNG, DENNY ([id number]) on 02/19/2019 12 :32:04 PM Procedure Note Interface, External Ris In - 02/19/2019 12:32 PM CDT Ventricular Rate 98 BPM Atrial Rate 98 BPM P-R Interval 146 ms QRS Duration 90 ms Q-T Interval 336 ms QTC Calculation(Bazett) 428 ms P Cordell 80 degrees R Cordell 56 degrees T Cordell 57 degrees Sinus rhythm with Premature atrial compl exes Otherwise normal ECG No previous ECGs available Confirmed by MD HUNG, DENNY ([id number]) o n 02/19/2019 12:32:04 PM Performing Organization Address City/State/Zipcode Phone Number GE MUSE after 01/19/2019 Insurance Payer Benefit Plan / Group Subscriber ID Type Phone A ddress MEDICARE MEDICARE A B xxxxxxxxxxx Medicare MCR GENERIC MEDICARE xxx Medigap SUPPLEMENT/INDIVIDUAL SUPPLEMENT Advance Directives For more information, please contact:[facility] [place], [place] [phone] Code Status Date Activated Date Inactivated Comments Full Code 02/25/2019 11:52 AM 02/26/2019 1:27 PM This code status was determined by: Patient Full Code 02/24/2019 9:42 AM 02/25/2019 11:52 AM This code status was determined by: Patient
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
--- OUTSIDE RECORDS SUMMARY | 2020-01-20 11:53 | XMS REPORT ---
:1945 Author Organization [facility] t Address [address] [place] [address] Care Team Providers Name Role Phone JESUS CHEN Attending Clinician Unavailable JESUS CHEN Admitting Clinician Unavailable Problems This patient has no known problems. Allergies, Adverse Reactions, Alerts This patient has no known allergies or adverse reactions. Medications This patient has no known medications. Procedures This patient has no known procedures. Results Test Description Test Time Test Comments Results Result Comments Source POCT-GLUCOSE METER 2019-02-26 08:49:00 Test Item Value Reference Range Interpretation Comme nts POC-GLUCOSE METER (BEAKER) (test 162 mg/dL 70-[address] [facility] [address] [facility] code = 1538) [facility] [address] BASIC METABOLIC [id number] 06:55:00 Test Item Value Reference Range Interpretation Comments SODIUM (BEAKER) 139 meq/L 136-145 (test code = 381) POTASSIUM (BEAKER) 4.3 meq/L 3.5-5.1 (test code = 379) CHLORIDE (BEAKER) 107 meq/L 98-107 (test code = 382) CO2 (BEAKER) (test 25 meq/L 22-29 code = 355) BLOOD UREA NITROGEN 25 mg/dL 7-21 H (BEAKER) (test code = 354) CREATININE (BEAKER) 0.93 mg/dL 0.57-1.25 (test code = 358) GLUCOSE RANDOM 147 mg/dL 70-105 H (BEAKER) (test code = 652) CALCIUM (BEAKER) 9.0 mg/dL 8.4-10.2 (test code = 697) EGFR (BEAKER) (test 79 mL/min/1.73 ESTIMA GRACE GFR IS code = 1092) sq m NOT ACCURATE CREATININE CLEARANCE IN PREDICTING GLOMERULAR FILTRATION RATE . ESTIMATED GFR I S NOT APPLICABLE FOR DIALYSIS PATIEN TS. CBC W/PLT COUNT & AUTO [id number] 05:48:00 Test Item Value Reference Range Interpretation Comments WHITE BLOOD CELL COUNT (BEAKER) 9.6 K/ L 3.5-10.5 (test code = 775) RED BLOOD CELL COUNT (BEAKER) 4.23 M/ L 4.63-6.08 L (test code = 761) HEMOGLOBIN (BEAKER) (test code = 14.0 GM/DL 13.7-17.5 410) HEMATOCRIT (BEAKER) (test code = 41.9 % 40.1-51.0 411) MEAN CORPUSCULAR VOLUME (BEAKER) 99.1 fL 79.0-92.2 H (test code = 753) MEAN CORPUSCULAR HEMOGLOBIN 33.1 pg 25.7-32.2 H (BEAKER) (test code = 751) MEAN CORPUSCULAR HEMOGLOBIN CONC 33.4 GM/DL 32.3-36.5 (BEAKER) (test code = 752) RED CELL DISTRIBUTION WIDTH 13.2 % 11.6-14.4 (BEAKER) (test code = 412) PLATELET COUNT (BEAKER) (test 162 K/CU MM 150-450 code = 756) MEAN PLATELET VOLUME (BEAKER) 9.4 fL 9.4-12.4 (test code = 754) NUCLEATED RED BLOOD CELLS 0 /100 WBC 0-0 (BEAKER) (test code = 413) NEUTROPHILS RELATIVE PERCENT 60 % (BEAKER) (test code = 429) LYMPHOCYTES RELATIVE PERCENT 28 % (BEAKER) (test code = 430) MONOCYTES RELATIVE PERCENT 10 % (BEAKER) (test code = 431) EOSINOPHILS RELATIVE PERCENT 1 % (BEAKER) (test code = 432) BASOPHILS RELATIVE PERCENT 0 % (BEAKER) (test code = 437) NEUTROPHILS ABSOLUTE COUNT 5.80 K/ L 1.78-5.38 H (BEAKER) (test code = 670) LYMPHOCYTES ABSOLUTE COUNT 2.74 K/ L 1.32-3.57 (BEAKER) (test code = 414) MONOCYTES ABSOLUTE COUNT (BEAKER) 0.96 K/ L 0.30-0.82 H (test code = 415) EOSINOPHILS ABSOLUTE COUNT 0.08 K/ L 0.04-0.54 (BEAKER) (test code = 416) BASOPHILS ABSOLUTE COUNT (BEAKER) 0.03 K/ L 0.01-0.08 (test code = 417) IMMATURE GRANULOCYTES-RELATIVE 0 % 0-1 PERCENT (BEAKER) (test code = 2801) POCT-GLUCOSE [id number] 22:16:00 Test Item Value Reference Range Interpretation Comments POC-GLUCOSE METER 90 mg/dL 70-[address] [facility] [address] (BEAKER) (test code = [place] [address] 1538) BASIC METABOLIC [id number] 09:33:00 Test Item Value Reference Range Interpretation Comments SODIUM (BEAKER) 141 meq/L 136-145 (test code = 381) POTASSIUM (BEAKER) 4.2 meq/L 3.5-5.1 (test code = 379) CHLORIDE (BEAKER) 107 meq/L 98-107 (test code = 382) CO2 (BEAKER) (test 27 meq/L 22-29 code = 355) BLOOD UREA NITROGEN 12 mg/dL 7-21 (BEAKER) (test code = 354) CREATININE (BEAKER) 0.88 mg/dL 0.57-1.25 (test code = 358) GLUCOSE RANDOM 161 mg/dL 70-105 H (BEAKER) (test code = 652) CALCIUM (BEAKER) 9.2 mg/dL 8.4-10.2 (test code = 697) EGFR (BEAKER) (test 85 mL/min/1.73 ESTIMA GRACE GFR IS code = 1092) sq m NOT ACCURATE CREATININE CLEARANCE IN PREDICTING GLOMERULAR FILTRATION RATE . ESTIMATED GFR I S NOT APPLICABLE FOR DIALYSIS PATIEN TS. CBC W/PLT COUNT & AUTO [id number] 09:09:00 Test Item Value Reference Range Interpretation Comments WHITE BLOOD CELL COUNT (BEAKER) 10.7 K/ L 3.5-10.5 H (test code = 775) RED BLOOD CELL COUNT (BEAKER) 4.42 M/ L 4.63-6.08 L (test code = 761) HEMOGLOBIN (BEAKER) (test code = 15.0 GM/DL 13.7-17.5 410) HEMATOCRIT (BEAKER) (test code = 44.2 % 40.1-51.0 411) MEAN CORPUSCULAR VOLUME (BEAKER) 100.0 fL 79.0-92.2 H (test code = 753) MEAN CORPUSCULAR HEMOGLOBIN 33.9 pg 25.7-32.2 H (BEAKER) (test code = 751) MEAN CORPUSCULAR HEMOGLOBIN CONC 33.9 GM/DL 32.3-36.5 (BEAKER) (test code = 752) RED CELL DISTRIBUTION WIDTH 13.2 % 11.6-14.4 (BEAKER) (test code = 412) PLATELET COUNT (BEAKER) (test 170 K/CU MM 150-450 code = 756) MEAN PLATELET VOLUME (BEAKER) 9.3 fL 9.4-12.4 L (test code = 754) NUCLEATED RED BLOOD CELLS 0 /100 WBC 0-0 (BEAKER) (test code = 413) NEUTROPHILS RELATIVE PERCENT 70 % (BEAKER) (test code = 429) LYMPHOCYTES RELATIVE PERCENT 19 % (BEAKER) (test code = 430) MONOCYTES RELATIVE PERCENT 10 % (BEAKER) (test code = 431) EOSINOPHILS RELATIVE PERCENT 0 % (BEAKER) (test code = 432) BASOPHILS RELATIVE PERCENT 0 % (BEAKER) (test code = 437) NEUTROPHILS ABSOLUTE COUNT 7.51 K/ L 1.78-5.38 H (BEAKER) (test code = 670) LYMPHOCYTES ABSOLUTE COUNT 2.04 K/ L 1.32-3.57 (BEAKER) (test code = 414) MONOCYTES ABSOLUTE COUNT (BEAKER) 1.01 K/ L 0.30-0.82 H (test code = 415) EOSINOPHILS ABSOLUTE COUNT 0.03 K/ L 0.04-0.54 L (BEAKER) (test code = 416) BASOPHILS ABSOLUTE COUNT (BEAKER) 0.02 K/ L 0.01-0.08 (test code = 417) IMMATURE GRANULOCYTES-RELATIVE 1 % 0-1 PERCENT (BEAKER) (test code = 2801) SODIUM NA-STAT [id number] 13:08:00 Test Item Value Reference Range Interpretation Comments SODIUM (BEAKER) (test code = 381) 139 meq/L 135-148 POTASSIUM-STAT [id number] 13:08:00 Test Item Value Reference Range Interpretation Comments POTASSIUM (BEAKER) (test code = 4.0 meq/L 3.6-5.5 379) HGB/HCT (H&H) - STAT [id number] 13:08:00 Test Item Value Reference Range Interpretation Comments HEMOGLOBIN (BEAKER) (test code = 13.9 g/dL 13.0-16.8 410) HEMATOCRIT (BEAKER) (test code = 41.0 % 40.0-50.0 411) BLOOD GAS, [id number] 13:08:00 Test Item Value Reference Range Interpretation Comments PH ARTERIAL (BEAKER) (test code = 7.34 7.35-7.45 L 383) PCO2 ARTERIAL (BEAKER) (test code 46 mmHg 35-45 H = 384) PO2 ARTERIAL (BEAKER) (test code 185 mmHg 80-90 H = 385) O2 SATURATION ARTERIAL (BEAKER) 99.2 % 96.0-97.0 H (test code = 386) HCO3 ARTERIAL (BEAKER) (test code 25 mmol/L 21-29 = 388) BASE EXCESS ARTERIAL (BEAKER) -1.8 mmol/L -2.0-3.0 (test code = 387) PATIENT TEMPERATURE (BEAKER) 35.8 C (test code = 1818) FIO2 (BEAKER) (test code = 1819) 50.0 % GLUCOSE-STAT [id number] 13:08:00 Test Item Value Reference Range Interpretation Comments GLUCOSE RANDOM (BEAKER) (test code 127 mg/dL 70-110 H = 652) CALCIUM, [id number] 12:12:00 Test Item Value Reference Range Interpretation Comments CALCIUM IONIZED (BEAKER) (test 1.81 mmol/L 1.12-1.27 HH code = 698) PH, BLOOD (BEAKER) (test code = 7.32 1810) BLOOD GAS, [id number] 12:09:00 Test Item Value Reference Range Interpretation Comments PH ARTERIAL (BEAKER) (test code = 7.33 7.35-7.45 L 383) PCO2 ARTERIAL (BEAKER) (test code 49 mmHg 35-45 H = 384) PO2 ARTERIAL (BEAKER) (test code 429 mmHg 80-90 H = 385) O2 SATURATION ARTERIAL (BEAKER) 99.8 % 96.0-97.0 H (test code = 386) HCO3 ARTERIAL (BEAKER) (test code 25 mmol/L 21-29 = 388) BASE EXCESS ARTERIAL (BEAKER) -1.4 mmol/L -2.0-3.0 (test code = 387) PATIENT TEMPERATURE (BEAKER) 36.3 C (test code = 1818) FIO2 (BEAKER) (test code = 1819) 50.0 % GLUCOSE-STAT [id number] 12:09:00 Test Item Value Reference Range Interpretation Comments GLUCOSE RANDOM (BEAKER) (test code 129 mg/dL 70-110 H = 652) HGB/HCT (H&H) - STAT [id number] 12:09:00 Test Item Value Reference Range Interpretation Comments HEMOGLOBIN (BEAKER) (test code = 13.4 g/dL 13.0-16.8 410) HEMATOCRIT (BEAKER) (test code = 39.0 % 40.0-50.0 L 411) SODIUM NA-STAT [id number] 12:08:00 Test Item Value Reference Range Interpretation Comments SODIUM (BEAKER) (test code = 381) 137 meq/L 135-148 POTASSIUM-STAT [id number] 12:08:00 Test Item Value Reference Range Interpretation Comments POTASSIUM (BEAKER) (test code = 4.0 meq/L 3.6-5.5 379) RAD, CHEST, 2 [id number] 14:00:00Reason for exam:->Preop screenFINAL REPORT Chest, PA and lateral. History: Preoperative. Comparison: Noneavailable. Discussion: The cardiomediastinal silhouette and pulmonary vasculature are within normallimits. The lungs are clear without evidence of consolidation or effusion. There are no acute osseous abnormalities. The soft tissues are unremarkable. IMPRESSION: No acute cardiopulmonary abnormality. Signed: Be Cevallos MDR[facility] Verified Date/Time: 02/18/2019 14:00:08 Reading Location: [facility] Mammo Reading Room ELET AGGREGATION: FUNCTION [id number] 13:37:00 Test Item Value Reference Range Interpretation Comments WEAK ADP 79 % 60-91 RESULT(BEAKER) (test code = 2135) PLATELET FUNCTION 60-100% indicates SCREEN INTERP (BEAKER) normal platelet (test code = 2173) function [id number] Lilian Mcadams MD (BEAKER) (test code = (electronic signature) 7552) PLATELET COUNT AGG 179 K/CU MM 150-450 (BEAKER) (test code = 2656) Platelet Function Screen results may be falsely low with platelet counts<100,000/cu mm.for patients on clopidogrel in past two weeksHEMOGLOBIN [id number] 13:35:00 Test Item Value Reference Range Interpretation Comments HEMOGLOBIN A1C (BEAKER) (test code = 7.2 % 4.3-6.1 H 368) LIPID [id number] 12:44:00 Test Item Value Reference Range Interpretation Comments TRIGLYCERIDES (BEAKER) (test code = 80 mg/dL 540) CHOLESTEROL (BEAKER) (test code = 145 mg/dL 631) HDL CHOLESTEROL (BEAKER) (test code 63 mg/dL = 976) LDL CHOLESTEROL CALCULATED (BEAKER) 66 mg/dL (test code = 633) Triglyceride Reference Range: Low Risk <150 Borderline 150-199 High Risk 200-499 Very High Risk >=500Cholesterol Reference Range: Low Risk <200 Borderline 200-239 High Risk >240HDL Cholesterol Reference Range: Low Risk >=60 High Risk <40LDL Cholesterol Reference Range: Optimal <100 Near Optimal 100-129 Borderline 130-159 High 160-189 Very High >=190COMPREHENSIVE METABOLIC [id number] 12:44:00 Test Item Value Reference Range Interpretation Comments TOTAL PROTEIN 6.9 gm/dL 6.0-8.3 (BEAKER) (test code = 770) ALBUMIN (BEAKER) 4.2 g/dL 3.5-5.0 (test code = 1145) ALKALINE PHOSPHATASE 61 U/L 40-150 (BEAKER) (test code = 346) BILIRUBIN TOTAL 0.7 mg/dL 0.2-1.2 (BEAKER) (test code = 377) SODIUM (BEAKER) (test 139 meq/L 136-145 code = 381) POTASSIUM (BEAKER) 4.6 meq/L 3.5-5.1 (test code = 379) CHLORIDE (BEAKER) 105 meq/L 98-107 (test code = 382) CO2 (BEAKER) (test 26 meq/L 22-29 code = 355) BLOOD UREA NITROGEN 18 mg/dL 7-21 (BEAKER) (test code = 354) CREATININE (BEAKER) 1.02 mg/dL 0.57-1.25 (test code = 358) GLUCOSE RANDOM 153 mg/dL 70-105 H (BEAKER) (test code = 652) CALCIUM (BEAKER) 9.5 mg/dL 8.4-10.2 (test code = 697) AST (SGOT) (BEAKER) 13 U/L 5-34 (test code = 353) ALT (SGPT) (BEAKER) 22 U/L 6-55 (test code = 347) EGFR (BEAKER) (test 71 mL/min/1.73 ESTIMA GRACE GFR IS code = 1092) sq m NOT ACCURATE CREATININE CLEARANCE IN PREDICTING GLOMERULAR FILTRATION RATE . ESTIMATED GFR I S NOT APPLICABLE FOR DIALYSIS PATIEN TS. PROTHROMBIN [id number] 12:38:00 Test Item Value Reference Range Interpretation Comments PROTIME (BEAKER) (test code = 12.8 seconds 11.9-14.2 759) INR (BEAKER) (test code = 370) 1.0 <=5.9 Effective 02/03/2019: PT Reference Range ChangeNew: 11.9-14.2 Previous: 11.7- 14.7RECOMMENDED COUMADIN/WARFARIN INR THERAPY RANGESSTANDARD DOSE: 2.0-3.0 Includes: PROPHYLAXIS for venous thrombosis, systemic embolization; TREATMENT for venous thrombosis and/or pulmonary embolus.HIGH RISK: Target INR is2.5-3.5 for patients wiht mechanical heart valves.CBC W/PLT COUNT & AUTO [id number] 12:29:00 Test Item Value Reference Range Interpretation Comments WHITE BLOOD CELL COUNT (BEAKER) 9.4 K/ L 3.5-10.5 (test code = 775) RED BLOOD CELL COUNT (BEAKER) 4.47 M/ L 4.63-6.08 L (test code = 761) HEMOGLOBIN (BEAKER) (test code = 15.0 GM/DL 13.7-17.5 410) HEMATOCRIT (BEAKER) (test code = 44.6 % 40.1-51.0 411) MEAN CORPUSCULAR VOLUME (BEAKER) 99.8 fL 79.0-92.2 H (test code = 753) MEAN CORPUSCULAR HEMOGLOBIN 33.6 pg 25.7-32.2 H (BEAKER) (test code = 751) MEAN CORPUSCULAR HEMOGLOBIN CONC 33.6 GM/DL 32.3-36.5 (BEAKER) (test code = 752) RED CELL DISTRIBUTION WIDTH 13.2 % 11.6-14.4 (BEAKER) (test code = 412) PLATELET COUNT (BEAKER) (test 187 K/CU MM 150-450 code = 756) MEAN PLATELET VOLUME (BEAKER) 9.0 fL 9.4-12.4 L (test code = 754) NUCLEATED RED BLOOD CELLS 0 /100 WBC 0-0 (BEAKER) (test code = 413) NEUTROPHILS RELATIVE PERCENT 70 % (BEAKER) (test code = 429) LYMPHOCYTES RELATIVE PERCENT 23 % (BEAKER) (test code = 430) MONOCYTES RELATIVE PERCENT 6 % (BEAKER) (test code = 431) EOSINOPHILS RELATIVE PERCENT 0 % (BEAKER) (test code = 432) BASOPHILS RELATIVE PERCENT 0 % (BEAKER) (test code = 437) NEUTROPHILS ABSOLUTE COUNT 6.60 K/ L 1.78-5.38 H (BEAKER) (test code = 670) LYMPHOCYTES ABSOLUTE COUNT 2.15 K/ L 1.32-3.57 (BEAKER) (test code = 414) MONOCYTES ABSOLUTE COUNT (BEAKER) 0.58 K/ L 0.30-0.82 (test code = 415) EOSINOPHILS ABSOLUTE COUNT 0.02 K/ L 0.04-0.54 L (BEAKER) (test code = 416) BASOPHILS ABSOLUTE COUNT (BEAKER) 0.02 K/ L 0.01-0.08 (test code = 417) IMMATURE GRANULOCYTES-RELATIVE 1 % 0-1 PERCENT (BEAKER) (test code = 2452)
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
[2020-01-20 12:47] VITALS: BP 134/68; TEMP 98.3; O2SAT 94
== END 2020-01-20 12:24 | disposition home or self-care (01) ==
LOC: ER 11:08
PROC: 0JQ00ZZ Repair Scalp Subcutaneous Tissue and Fascia, Open Approach (ICD-10-PCS; principal; 2020-01-20)
DX: S01.01XA Laceration without foreign body of scalp, initial encounter (principal); V89.2XXA Person injured in unspecified motor-vehicle accident, traffic, initial encounter; I10 Essential (primary) hypertension; I25.2 Old myocardial infarction; Z72.0 Tobacco use
CPT/HCPCS: 70450; 99284

== ENCOUNTER 2020-07-08 12:25 | Emergency (ER) | payer OTHER ==
--- OUTSIDE RECORDS SUMMARY | 2020-07-08 12:27 | XMS REPORT | Clinical Summary ---
:1945 Author Organization [facility] Address [address] [place] [address] Care Team Providers Name Role Phone MD Mckinley Primary Care Provider Allergies Active Allergy Reactions Severity Noted Date Comments Azithromycin Shortness Of Breath High Medications Medication Sig Dispensed Refills Start Date End Date Status metFORMIN (GLUCOPHAGE) Take 1,000 mg by 0 Active 1000 MG tablet mouth 2 (two) times daily with breakfast and dinner. doxycycline hyclate 50 Take 50 mg by 0 Active mg Tab mouth daily. lisinopril Take 10 mg by 0 Activ e (PRINIVIL,ZESTRIL) 10 mouth daily. MG tablet glipiZIDE (GLUCOTROL) 5 Take 5 mg by 0 Active MG tablet mouth daily. tamsulosin (FLOMAX) 0.4 Take 0.4 mg by 0 Active mg Cap 24 hr capsule mouth daily. finasteride (PROSCAR) 5 Take 5 mg by 0 Active mg tablet mouth daily. clopidogrel (PLAVIX) 75 Take 75 mg by 0 Active mg tablet mouth daily. lovastatin (MEVACOR) 20 Take 20 mg by 0 Active MG tablet mouth nightly. budesonide-formoterol Inhale 2 puffs by 0 Active (SYMBICORT) 160-4.5 mouth via inhaler mcg/actuation inhaler 2 (two) times daily. tiotropium (SPIRIVA) 18 Inhale 18 mcg by 0 Active mcg inhalation capsule mouth via inhaler daily. multivitamin per tablet Take 1 tablet by 0 Active mouth daily. omega-3 fatty Take 1 g by mouth 0 Active acids-fish oil daily. 340-1,000 mg Cap per capsule cinnamon bark Take 1,000 mg by 0 Active (CINNAMON) 500 mg mouth daily. capsule albuterol HFA (VENTOLIN Inhale 1 puff by 0 Active HFA) 90 mcg/actuation mouth via inhaler inhaler every 6 (six) hours as needed for Wheezing. niacin 500 MG tablet Take 500 mg by 0 Active mouth daily with breakfast. cholecalciferol, Take 2,000 Units 0 Active vitamin D3, 2,000 unit by mouth daily. Tab cyanocobalamin 1000 MCG Take 1,000 mcg by 0 Active tablet mouth daily. aspirin 81 MG EC tablet Take 81 mg by 0 Active mouth daily. cyclobenzaprine Take 5 mg by 0 A ctive (FLEXERIL) 5 MG tablet mouth 2 (two) times daily as needed. traMADol (ULTRAM) 50 mg Take 1 tablet (50 30 tablet 0 02/27/20 19 Active tablet mg total) by mouth 2 (two) times daily as needed. Max Daily Amount: 100 mg Active Problems Problem Noted Date Peripheral vascular disease, unspecified 02/25/2019 PVD (peripheral vascular disease) 02/18/2019 COPD (chronic obstructive pulmonary disease) Hypertension Diabetes mellitus type 2, noninsulin dependent Hyperlipidemia Family History Medical History Relation Name Comments [...] Assigned at Date Recorded Not on file Last Filed Vital Signs Not on file Plan of Treatment Health Maintenance Due Date Last Done Comments DIABETIC EYE EXAM 1954 DIABETIC FOOT EXAM 1954 URINE MICROALBUMIN 1954 PNEUMOCOCCAL 65+ YRS (1 of 1 - [id number]) 2009 MEDICARE ANNUAL WELLNESS (YEAR 2 or FIRST YEAR if no 05/10/2010 IPPE) HEMOGLOBIN A1C 08/20/2019 02/18/2019 INFLUENZA VACCINE (#1) 2020 Implants Implanted Type Area Burlesque Dancer Device Shelf Model / Serial Identifier Expiration / Lot Date Sealptfe Gelatin Sealed Ultrathin Wall Straight Wrapped Full y Reinforced Right: TERUMO VASCUTEK 12/07/2019 [id number] / Implanted: Qty: 1 on 02/24/2019 by Mumtaz Ricardo MD at [facility] Leg [id number] / [id number] Results Not on fileafter 07/08/2019 Insurance Payer Benefit Plan / Subscriber ID Effective Dates Phone Addre ss Type Group MEDICARE MEDICARE A B [id number] 2009-Present Medicare MCR GENERIC MEDICARE 000 2018-Present Medigap SUPPLEMENT/RADHA SUPPLEMENT VIDUAL (Reading) [place] [address] Advance Directives For more information, please contact: [phone] Code Status Date Activated Date Inactivated Comments Full Code 02/25/2019 11:52 AM 02/26/2019 1:27 PM This code status was determined by: Patient Full Code 02/24/2019 9:42 AM 02/25/2019 11:52 AM This code status was determined by: Patient
--- OUTSIDE RECORDS SUMMARY | 2020-07-08 12:28 | XMS REPORT | Continuity of Care Document ---
:1945 Author Organization [facility] t Address [address] [place] [address] Care Team Providers Name Role Phone Mckinley CALLOWAY Primary Care Physician JESUS CHEN Attending Clinician Unavailable JESUS CHEN Admitting Clinician Unavailable Problems Condition Condition Condition Status Onset Resolution Last Treating Co mments Source Name Details Category Date Date Treatment Clinician Date Peripheral Peripheral Disease Active [facility] vascular vascular 6-20 [facility] - disease, disease, 00:00: Medica l unspecifie unspecifie 00 Ce nter d d PVD PVD Disease Active [facility] (periphera (periphera 6-13 [facility] - l vascular l vascular 00:00: Me dical disease) disease) 00 Center COPD COPD Disease Active [facility] (chronic ([facility]ronic [facility] - obstructiv obstructiv Me dical e e Center pulmonary pulmonary disease) disease) Hypertensi Hypertensi Disease Active [facility] on on [facility] Diabetes Diabetes Disease Active [facility] mellitus mellitus [facility] - type 2, type 2, Medical noninsulin noninsulin Ce nter dependent dependent Hyperlipid Hyperlipid Disease Active [facility] emia emia [facility] Allergies, Adverse Reactions, Alerts Allergy Allergy Status Severity Reaction(s) Onset Inactive Treating Comm ents Source Name Type Date Date Clinician Azithrom Propensi Active Shortness Of [facility] ycin ty to Breath [facility] - adverse Medical reaction Center s Family History Family Member Diagnosis Comments Start Date Stop Date Source Natural mother Diabetes [facility] Social History Social Habit Start Date Stop Date Quantity Comments Source History SDOH [facility] - Alcohol Std Drinks Medica l Center History [facility] [place] - Alcohol Binge [facility] Sex Assigned At [facility] Cigarettes smoked 2019-03-18 2019-03-[address] [facility] [address] [place] - current (pack per 00:00:00 00:00:00 [facility] Center day) - Reported Cigarette 2019-03-18 2019-03-18 [facility] radha - pack-years 00:00:00 00:00:00 [facility] Tobacco use and 2019-03-18 2019-03-18 Never used [facility] St Cassy garcia - exposure 00:00:00 00:00:00 [facility] Alcohol intake 2019-03-18 2019-03-18 [facility]00:00 non-drinker of Medical Ce nter alcohol (finding) History [facility] 2019-02-18 2019-02-18 [address] [facility] [address] [place] - Alcohol Frequency 00:00:00 00:00:00 [facility] Smoking Status Start Date Stop Date Source Current every day smoker 2019-03-18 00:00:00 [facility] Medications Ordered Filled Start Stop Current Ordering Indication Dosage Frequency Signature Comments Components Source Medication Medication Date Date Medication? Clinician (SIG) Name Name metFORMIN Yes 1000mg Take 1,[address] (GLUCOPHAGE 7-11 mg by [facility] - ) 1000 MG 09:42: mouth 2 Medic al tablet 24 (two) Center times daily with breakfast and dinner. doxycycline Yes 50mg QD Take [address] [address] hyclate 50 7-11 by mouth [facility] - mg Tab 09:42: daily. [address] lisinopril Yes 10mg QD Take [address] (PRINIVIL,Z 7-11 by mouth Luke s - ESTRIL) 10 09:42: daily. Medic al MG tablet 24 [place] glipiZIDE Yes 5mg QD Take [address] (GLUCOTROL) 7-11 by mouth Luke s - 5 MG tablet 09:42: daily. Medi angel 24 [place] tamsulosin Yes .4mg QD Take 0.[address] (FLOMAX) 7-11 mg by [facility] - 0.4 mg Cap 09:42: mouth Medica l 24 hr 24 daily. [place] capsule finasteride Yes 5mg QD Take [address] (PROSCAR) 5 7-11 by mouth Luke s - mg tablet 09:42: daily. Medica l 24 [place] clopidogrel Yes 75mg QD Take [address] (PLAVIX) 75 7-11 by mouth Luke s - mg tablet 09:42: daily. Medica l 24 Center lovastatin Yes 20mg QD Take [address] (MEVACOR) 7-11 by mouth [facility] - 20 MG 09:42: nightly. Medical tablet 24 Center budesonide- 0 Yes 2{puff} Q.5D Inhale [address] formoterol 7-11 puffs by [facility] - (SYMBICORT) 09:42: mouth via M edical 160-4.5 24 inhaler 2 Center mcg/actuati (two) on inhaler times daily. tiotropium Yes 18ug QD Inhale [address] (SPIRIVA) 7-11 mcg by [facility] - 18 mcg 09:42: mouth via Medica l inhalation 24 inhaler Center capsule daily. multivitami 0 Yes 1{tbl} QD Take [address] n per 7-11 tablet by [facility] - tablet 09:42: mouth Medical 24 daily. [place] omega-3 Yes 1g QD Take [address] fatty 7-11 by mouth [facility] - acids-fish 09:42: daily. Medic al oil 24 [place] 340-1,000 mg Cap per capsule cinnamon 0 Yes 1000mg QD Take 1,[address] bark 7-11 mg by [facility] - (CINNAMON) 09:42: mouth Medica l 500 mg 24 daily. [place] capsule albuterol Yes 1{puff} Inhale [address] HFA 7-11 puff by [facility] - (VENTOLIN 09:42: mouth via Med ical HFA) 90 24 inhaler Center mcg/actuati every 6 on inhaler (six) hours as needed for Wheezing. niacin 500 0 Yes 500mg Take [address] MG tablet 7-11 mg by [facility] - 09:42: mouth Medical 24 daily with Center breakfast. cholecalcif 20190 Yes 2000U QD Take 2,[address] anamaria, 7-11 Units by [facility] - vitamin D3, 09:42: mouth Medic al 2,000 unit 24 daily. Center Tab cyanocobala Yes 1000ug QD Take 1,[address] min 1000 7-11 mcg by [facility] - MCG tablet 09:42: mouth Medica l 24 daily. Center aspirin 81 2018-0 Yes 81mg QD Take [address] MG EC 7-11 by mouth [facility] - tablet 09:42: daily. Medical 24 Center cyclobenzap 2018- Yes 5mg Take [address] rine 7-11 by mouth 2 [facility] - (FLEXERIL) 09:42: (two) Medica l 5 MG tablet 24 times Center daily as needed. traMADol Yes 50mg Take [address] (ULTRAM) 50 6-21 tablet (50 [facility] - mg tablet 00:00: mg total) Med ical 00 by mouth 2 Center (two) times daily as needed. Max Daily Amount: 100 mg Procedures This patient has no known procedures. Plan of Care Planned Activity Planned Date Details Comments Source Future Scheduled 2020-05-09 INFLUENZA VACCINE (#1) [facility] - Test 00:00:00 [code = INFLUENZA Medical Ce nter VACCINE (#1)] Future Scheduled 2019-08-[address] [facility] - Test 00:00:00 measurement Medical Center (procedure) [code = 18522121] Future Scheduled 2010-05-[address] [facility] - Test 00:00:00 WELLNESS (YEAR 2 or Medical Center FIRST YEAR if no IPPE) [code = MEDICARE ANNUAL WELLNESS (YEAR 2 or FIRST YEAR if no IPPE)] Future Scheduled 2009 PNEUMOCOCCAL 65+ YRS [facility] - Test 00:00:00 (1 of 1 - Medical Center [id number] PCV13) [code = PNEUMOCOCCAL 65+ YRS (1 of 1 - [id number] PCV13)] Future Scheduled 1954 DIABETIC EYE EXAM [facility] - Test 00:00:00 [code = DIABETIC EYE Medical Center EXAM] Future Scheduled [address] [facility] - Test 00:00:00 examination Medical Center (regime/therapy) [code = 725849291] Future Scheduled 1954 Urine screening for [facility] - Test 00:00:00 protein (procedure) Medical Center [code = 131543874] Results Test Description Test Time Test Comments Results Result Comments Source POCT-GLUCOSE METER 2019-02-26 08:49:00 Test Item Value Reference Range Interpretation Comme nts POC-GLUCOSE METER (BEAKER) (test 162 mg/dL 70-110 H TESTED AT [facility] [address] [facility] 7703 0 BASIC METABOLIC [id number] 06:55:00 Test Item Value Reference Range Interpretation [...] PATIEN TS. CBC W/PLT COUNT & AUTO [id number] 05:48:00 Test Item Value Reference Range Interpretation [...] PERCENT (BEAKER) (test code = 2801) POCT-GLUCOSE [id number] 22:16:00 Test Item Value Reference Range Interpretation Comments POC-GLUCOSE METER 90 mg/dL 70-110 TESTED AT [facility] 6720 (BEAKER) (test code = [place] [address] 1578) BASIC METABOLIC [id number] 09:33:00 Test Item Value Reference Range Interpretation [...] PATIEN TS. CBC W/PLT COUNT & AUTO [id number] 09:09:00 Test Item Value Reference Range Interpretation [...] (BEAKER) (test code = 2801) SODIUM NA-STAT [id number] 13:08:00 Test Item Value Reference Range Interpretation Comments SODIUM (BEAKER) (test code = 381) 139 meq/L 135-148 POTASSIUM-STAT [id number] 13:08:00 Test Item Value Reference Range Interpretation Comments POTASSIUM (BEAKER) (test code = 4.0 meq/L 3.6-5.5 379) HGB/HCT (H&H) - STAT [id number] 13:08:00 Test Item Value Reference Range Interpretation Comments HEMOGLOBIN (BEAKER) (test code = 13.9 g/dL 13.0-16.8 410) HEMATOCRIT (BEAKER) (test code = 41.0 % 40.0-50.0 411) BLOOD GAS, [id number] 13:08:00 Test Item Value Reference Range Interpretation [...] (test code = 1819) 50.0 % GLUCOSE-STAT [id number] 13:08:00 Test Item Value Reference Range Interpretation Comments GLUCOSE RANDOM (BEAKER) (test code 127 mg/dL 70-110 H = 652) CALCIUM, [id number] 12:12:00 Test Item Value Reference Range Interpretation Comments CALCIUM IONIZED (BEAKER) (test 1.81 mmol/L 1.12-1.27 HH code = 698) PH, BLOOD (BEAKER) (test code = 7.32 1810) BLOOD GAS, [id number] 12:09:00 Test Item Value Reference Range Interpretation [...] (test code = 1819) 50.0 % GLUCOSE-STAT [id number] 12:09:00 Test Item Value Reference Range Interpretation Comments GLUCOSE RANDOM (BEAKER) (test code 129 mg/dL 70-110 H = 652) HGB/HCT (H&H) - STAT [id number] 12:09:00 Test Item Value Reference Range Interpretation Comments HEMOGLOBIN (BEAKER) (test code = 13.4 g/dL 13.0-16.8 410) HEMATOCRIT (BEAKER) (test code = 39.0 % 40.0-50.0 L 411) SODIUM NA-STAT [id number] 12:08:00 Test Item Value Reference Range Interpretation Comments SODIUM (BEAKER) (test code = 381) 137 meq/L 135-148 POTASSIUM-STAT [id number] 12:08:00 Test Item Value Reference Range Interpretation Comments POTASSIUM (BEAKER) (test code = 4.0 meq/L 3.6-5.5 379) RAD, CHEST, 2 [id number] 14:00:00Reason for exam:->Preop screenFINAL REPORT Chest, PA and lateral. History: Preoperative. Comparison: Noneavailable. Discussion: The cardiomediastinal silhouette and pulmonary vasculature are within normallimits. The lungs are clear without evidence of consolidation or effusion. There are no acute osseous abnormalities. The soft tissues are unremarkable. IMPRESSION: No acute cardiopulmonary abnormality. Signed: Be Cevallos MDReport Verified Date/Time: 02/18/2019 14:00:08 Reading Location: [facility] [address] Mammo Reading Room ELET AGGREGATION: FUNCTION [id number] 13:37:00 Test Item Value Reference Range Interpretation Comments WEAK ADP 79 % 60-91 RESULT(BEAKER) (test code = 2135) PLATELET FUNCTION 60-100% indicates SCREEN INTERP (BEAKER) normal platelet (test code = 2173) function [id number] Lilian Mcadams MD (BEAKER) (test code = (electronic signature) 2622) PLATELET COUNT AGG 179 K/CU MM 150-450 (BEAKER) (test code = 2656) Platelet Function Screen results may be falsely low with platelet counts<100,000/cu mm.for patients on clopidogrel in past two weeksHEMOGLOBIN [id number] 13:35:00 Test Item Value Reference Range Interpretation Comments HEMOGLOBIN A1C (BEAKER) (test code = 7.2 % 4.3-6.1 H 368) LIPID [id number] 12:44:00 Test Item Value Reference Range Interpretation [...] 130-159 High 160-189 Very High >=190COMPREHENSIVE METABOLIC [id number] 12:44:00 Test Item Value Reference Range Interpretation [...] NOT APPLICABLE FOR DIALYSIS PATIEN TS. PROTHROMBIN [id number] 12:38:00 Test Item Value Reference Range Interpretation [...] mechanical heart valves.CBC W/PLT COUNT & AUTO [id number] 12:29:00 Test Item Value Reference Range Interpretation [...]
--- NOTE | 2020-07-08 13:53 | EDPHYS ---
Physician Documentation [facility] Name: Marcos Macdonald Age: 75 yrs Sex: Male : 1945 Arrival Date: 07/08/2020 Time: 12:27 Bed 18 Private MD: Manuel Sen ED Physician William Medrano HPI: 07/08 13:10 This 75 yrs old Male presents to ER via Ambulatory with complaints of cp Shoulder Pain. 13:10 The patient or guardian complains of pain, that is acute. left shoulder. Context: cp resulted from an unknown reason, The patient reports no decreased range of motion. The patient reports no obvious deformity. Onset: The symptoms/episode began/occurred 3 week(s) ago. Historical: - Allergies: 12:57 NKA; jd3 - Home Meds: 12:57 Unknown blood thinner [Active]; unknown BP med [Active]; unknown diabetes med [Active]; jd3 - PMHx: 12:57 Diabetes - NIDDM; Hyperlipidemia; Hypertension; Myocardial infarction; jd3 - Immunization history:: Adult Immunizations unknown. - Social history:: Smoking status: Patient reports the use of cigarette tobacco products, smokes two packs cigarettes per day. ROS: 13:15 Constitutional: Negative for body aches, chills, fever. cp 13:15 Eyes: Negative for injury, pain, redness, and discharge. cp 13:15 Neck: Negative for pain with movement, pain at rest, stiffness. 13:15 Cardiovascular: Negative for chest pain, edema, palpitations. 13:15 Respiratory: Negative for cough, shortness of breath, wheezing. 13:15 Abdomen/GI: Negative for abdominal pain, nausea, vomiting, and diarrhea. 13:15 Back: Negative for pain at rest, pain with movement. 13:15 MS/extremity: Positive for pain, of the left shoulder, Negative for injury or acute deformity, decreased range of motion, paresthesias. 13:15 Neuro: Negative for altered mental status, headache, weakness. 13:15 All other systems are negative. Exam: 13:30 Head/Face: Normocephalic, atraumatic. cp 13:30 Constitutional: The patient appears in no acute distress, alert, awake, non-diaphoretic, non-toxic, well developed, well nourished. 13:30 Eyes: Periorbital structures: appear normal, Conjunctiva: normal, no exudate, no cp injection, Sclera: no appreciated abnormality, Lids and lashes: appear normal, bilaterally. 13:30 ENT: External ear(s): are unremarkable, Nose: is normal, Posterior pharynx: Airway: no evidence of obstruction, patent. 13:30 Neck: C-spine: vertebral tenderness, is not appreciated, crepitus, is not appreciated, ROM/movement: is normal, is supple, without pain, no range of motions limitations. 13:30 Chest/axilla: Inspection: normal, Palpation: is normal, no crepitus, no tenderness. 13:30 Cardiovascular: Rate: normal, Rhythm: regular. 13:30 Respiratory: the patient does not display signs of respiratory distress, Respirations: normal, no use of accessory muscles, no retractions, labored breathing, is not present, Breath sounds: are clear throughout, no stridor, no wheezing. 13:30 Abdomen/GI: Inspection: abdomen appears normal. 13:30 Musculoskeletal/extremity: Extremities: grossly normal except: noted in the left shoulder: pain, tenderness, ROM: limited passive range of motion due to pain, in the left shoulder. Vital Signs: 12:57 BP 127 / 66; Pulse 94; Resp 17 S; Temp 97.4(TE); Pulse Ox 98% on R/A; Weight 68.04 kg jd3 (R); Height 5 ft. 8 in. (172.72 cm) (R); Pain 8/10; 12:57 Body Mass Index 22.81 (68.04 kg, 172.72 cm) jd3 MDM: 12:54 Patient medically screened. bharathi 13:15 Differential diagnosis: tendonitis, rotator cuff injury, bursitis, fracture. cp 13:51 Data reviewed: vital signs, nurses notes, radiologic studies, plain films. cp 13:51 Test interpretation: by ED physician or midlevel provider: xrays of left shoulder cp negative for fracture. Counseling: I had a detailed discussion with the patient and/or guardian regarding: the historical points, exam findings, and any diagnostic results supporting the discharge/admit diagnosis, radiology results, the need for outpatient follow up, a orthopedic surgeon, to return to the emergency department if symptoms worsen or persist or if there are any questions or concerns that arise at home. 07/08 13:09 Order name: Shoulder Left 2 View EDMS Administered Medications: No medications were administered Disposition: 07/08/20 13:52 Discharged to Home. Impression: Pain in left shoulder. - Condition is Stable. - Discharge Instructions: Shoulder Pain, Shoulder Range of Motion Exercises. - Prescriptions for Diclofenac Sodium 75 mg Oral Tablet Sustained Release - take 1 tablet by ORAL route 2 times per day; 30 tablet. Tramadol 50 mg Oral Tablet - take 1 tablet by ORAL route every 8 hours as needed; 12 tablet. - Medication Reconciliation Form, Thank You Letter, Antibiotic Education, Prescription Opioid Use form. - Follow up: Anderson Potter MD; When: 2 - 3 days; Reason: Recheck today's complaints. Addendum: 07/09/2020 14:42 Co-signature as Attending Physician, William Medrano MD I agree with the assessment and c mays plan of care. Signatures: Dispatcher [employer] EDNY William Medrano MD MD cha Page, Corey, PA PA Hema Cheney RN RN jd3 Corrections: (The following items were deleted from the chart) 07/08 14:03 13:52 Sling ordered. cp jd3 14:04 13:52 07/08/2020 13:52 Discharged to Home. Impression: Pain in left shoulder. Condition jd3 is Stable. Forms are Medication Reconciliation Form, Thank You Letter, Antibiotic Education, Prescription Opioid Use. Follow up: Anderson Potter; When: 2 - 3 days; Reason: Recheck today's complaints. cp
--- NOTE | 2020-07-08 13:53 | ER ---
Nurse's Notes [facility] Name: Marcos Macdonald Age: 75 yrs Sex: Male : 1945 Arrival Date: 07/08/2020 Time: 12:27 Bed 18 Private MD: Manuel Sen Diagnosis: Pain in left shoulder Presentation: 07/08 12:55 Chief complaint: Patient states: "It hurts to move my left shoulder. it doesn't hurt at jd3 all when sitting still, but when I lift my arm it starts to hurt. it has been going on for 3 weeks.". Coronavirus screen: At this time, the client does not indicate any symptoms associated with coronavirus-19. Ebola Screen: Patient negative for fever greater than or equal to 101.5 degrees Fahrenheit, and additional compatible Ebola Virus Disease symptoms. Initial Sepsis Screen: Does the patient meet any 2 criteria? No. Patient's initial sepsis screen is negative. Does the patient have a suspected source of infection? No. Patient's initial sepsis screen is negative. Risk Assessment: Do you want to hurt yourself or someone else? Patient reports no desire to harm self or others. Onset of symptoms was June 17, 2020. 12:55 Method Of Arrival: Ambulatory jd3 12:55 Acuity: KERRY 4 jd3 Historical: - Allergies: 12:57 NKA; jd3 - Home Meds: 12:57 Unknown blood thinner [Active]; unknown BP med [Active]; unknown diabetes med [Active]; jd3 - PMHx: 12:57 Diabetes - NIDDM; Hyperlipidemia; Hypertension; Myocardial infarction; jd3 - Immunization history:: Adult Immunizations unknown. - Social history:: Smoking status: Patient reports the use of cigarette tobacco products, smokes two packs cigarettes per day. Screenin:58 Abuse screen: Denies threats or abuse. Nutritional screening: No deficits noted. jd3 Tuberculosis screening: No symptoms or risk factors identified. Fall Risk Ambulatory Aid- None/Bed Rest/Nurse Assist (0 pts). Gait- Normal/Bed Rest/Wheelchair (0 pts) Mental Status- Oriented to own ability (0 pts). Total Rod Fall Scale indicates No Risk (0-24 pts). Assessment: 12:58 General: Appears in no apparent distress. comfortable, Behavior is calm, cooperative, jd3 appropriate for age. Pain: Complains of pain in left shoulder Quality of pain is described as aching, Aggravated by increased activity, repositioning. Neuro: Level of Consciousness is awake, alert, obeys commands, Oriented to person, place, time, situation. Cardiovascular: Denies chest pain, Capillary refill < 3 seconds Patient's skin is warm and dry. Respiratory: Airway is patent Respiratory effort is even, unlabored, Respiratory pattern is regular, symmetrical, Denies cough, shortness of breath. GI: No signs and/or symptoms were reported involving the gastrointestinal system. : No signs and/or symptoms were reported regarding the genitourinary system. EENT: No signs and/or symptoms were reported regarding the EENT system. Derm: Skin is intact, Skin is dry, Skin is normal, Skin temperature is warm. Musculoskeletal: Circulation, motion, and sensation intact. Range of motion: intact in all extremities. 14:04 Reassessment: Patient appears in no apparent distress at this time. Patient and/or jd3 family updated on plan of care and expected duration. Pain level reassessed. Patient is alert, oriented x 3, equal unlabored respirations, skin warm/dry/pink. Vital Signs: 12:57 BP 127 / 66; Pulse 94; Resp 17 S; Temp 97.4(TE); Pulse Ox 98% on R/A; Weight 68.04 kg j (R); Height 5 ft. 8 in. (172.72 cm) (R); Pain 8/10; 12:57 Body Mass Index 22.81 (68.04 kg, 172.72 cm) [facility] ED Course: 12:27 Patient arrived in ED. ag5 12:28 Manuel Sen MD is Private Physician. ag5 12:54 William Hogan PA is PHCP. cp 12:54 William Medrano MD is Attending Physician. cp 12:55 Hema Iniguez RN is Primary Nurse. jd3 12:56 Triage completed. jd3 12:58 Arm band placed on. jd3 12:59 Patient has correct armband on for positive identification. Bed in low position. Call j light in reach. Side rails up X 1. Pulse ox on. NIBP on. 13:51 Anderson Potter MD is Referral Physician. cp 14:03 No provider procedures requiring assistance completed. Patient did not have IV access jd3 during this emergency room visit. 14:14 Shoulder Left 2 View In Process Unspecified. EDMS Administered Medications: No medications were administered Outcome: 13:52 Discharge ordered by . graeme 14:04 Discharged to home ambulatory. jd3 14:04 Condition: stable 14:04 Discharge instructions given to patient, Instructed on discharge instructions, follow up and referral plans. medication usage, Demonstrated understanding of instructions, follow-up care, medications, Prescriptions given X 2. 14:04 Patient left the ED. jd3 Signatures: Dispatcher [employer] EDMS William Hogan PA PA cp Davies, Jonathon RN RN jd3 Guerita Benitez ag5
[2020-07-08 14:11] VITALS: BP 127/66; TEMP 97.4; O2SAT 98
--- NOTE | 2020-07-08 14:54 | RAD REPORT ---
EXAM DESCRIPTION: RAD - Shoulder Left 2 View - 07/08/2020 2:14 pm CLINICAL HISTORY: Left shoulder pain FINDINGS: No fracture or dislocation is seen. The bones are osteoporotic. Mild osteoarthritis involves the AC joint A curvilinear calcific density lies superior to the humeral head which may indicate calcific tendinit is
== END 2020-07-08 14:04 | disposition home or self-care (01) ==
LOC: ER 12:25
DX: M25.512 Pain in left shoulder (principal); I10 Essential (primary) hypertension; E11.9 Type 2 diabetes mellitus without complications; F17.210 Nicotine dependence, cigarettes, uncomplicated; Z79.01 Long term (current) use of anticoagulants
CPT/HCPCS: 99283

== ENCOUNTER 2021-02-24 12:05 | Emergency (ER) | payer MEDICARE, OTHER ==
--- OUTSIDE RECORDS SUMMARY | 2021-02-24 12:08 | XMS REPORT | Continuity of Care Document ---
:1945 Author Organization [facility] t Address [address] [place] [address] Care Team Providers Name Role Phone Mckinley CALLOWAY Primary Care Physician Doctor Unassigned, Name Attending Clinician Unavailable Mohinder Ellison Attending Clinician JESUS CHEN Attending Clinician Unavailable JESUS CHEN Admitting Clinician Unavailable Problems Condition Condition Condition Status Onset Resolution Last Treating Co mments Source Name Details Category Date Date Treatment Clinician Date Peripheral Peripheral Disease Active [facility] vascular vascular 6-20 kes - disease, disease, 00:00: Medica l unspecifie [...] Disease Active [facility] on on [facility] Diabetes Diabetes Disease Active [facility] 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 - adverse Medical reaction [place] s Family History Family Member Diagnosis Comments Start Date Stop Date Source Natural mother Diabetes [facility] Social History Social Habit Start Date Stop Date Quantity Comments Source History [facility] - Alcohol Std Drinks Medica l Center History [facility] radha - Alcohol Binge [facility] Sex Assigned At [facility] Cigarettes smoked 2019-03-18 2019-03[facility]18 [facility] per 00:[facility]:00 00:00:00 [facility] Center day) - Reported Cigarette 2019-03-18 2019-03-18 [facility] - pack-years 00:00:00 00:00:00 [facility] Tobacco use and 2019-03-18 2019-03-18 Never used [facility] - exposure 00:00:00 00:00:00 [facility] Alcohol intake 2019-03-18 2019-03-18 [facility]:00:00 non-drinker of Medical Ce nter alcohol (finding) History [facility] 2019-02-18 2019-02-18 1 [facility] - Alcohol Frequency 00:00:00 00:00:00 [facility] Smoking Status Start Date Stop Date Source Current every day smoker 2019-03-18 00:00:00 [facility] Medications Ordered Filled Start Stop [...] mouth [facility]ukes - mg Tab 09:42: daily. [address] lisinopril Yes 10mg QD Take [address] (PRINIVIL,Z 7-11 by mouth Luke s - ESTRIL) 10 09:42: daily. Medic al MG tablet 24 Center glipiZIDE Yes 5mg QD Take [address] (GLUCOTROL) 7-11 by mouth Luke s - 5 MG tablet 09:42: daily. Medi angel 24 [place] tamsulosin Yes .4mg QD Take 0.[address] (FLOMAX) 7-11 mg by [facility] - 0.4 mg Cap 09:42: mouth Medica l 24 hr 24 daily. Center capsule finasteride Yes 5mg QD Take [address] (PROSCAR) 5 7-11 by mouth Luke s - mg tablet 09:42: daily. Medica l 24 Center clopidogrel 20190 Yes 75mg QD Take 75 mg CHI [...] - tablet 09:42: mouth Medical 24 daily. [place] omega-3 0 Yes 1g QD Take [address] fatty 7-11 by mouth [facility] - acids-fish 09:42: daily. Medic al oil 24 [place] 340-1,000 mg Cap per capsule cinnamon 0 Yes 1000mg QD Take 1,[address] bark 7-11 mg by [facility]ukes - (CINNAMON) 09:42: mouth Medica l 500 mg 24 daily. [place] capsule albuterol 0 Yes 1{puff} Inhale [address] HFA 7-11 puff by Lukes - (VENTOLIN 09:42: mouth via Med ical HFA) 90 24 inhaler Center mcg/actuati every 6 on inhaler (six) hours as needed for Wheezing. niacin 500 2019-0 Yes 500mg Take [address] MG tablet 7-11 mg by [facility]ukes - 09:42: mouth Medical 24 daily with Center breakfast. cholecalcif 2019-0 Yes 2000U QD Take 2,[address] anamaria, 7-11 Units by [facility]ukes - vitamin D3, 09:42: mouth Medic al 2,000 unit 24 daily. Center Tab cyanocobala 2018- Yes 1000ug QD Take 1,[address] min 1000 7-11 mcg by [facility]ukes - MCG tablet 09:42: mouth Medica l 24 daily. [place] aspirin 81 2019-0 Yes 81mg QD Take [address] MG EC 7-11 by mouth Lukes - tablet 09:42: daily. Medical 24 [place] cyclobenzap 2018-0 Yes 5mg Take 5 mg C HI [...] Planned Date Details Comments Source Future Scheduled 2021-05-[address] [facility] - Test 00:00:00 (Season Ended) [code = Medic al Center INFLUENZA VACCINE (Season Ended)] Future Scheduled 2020-09-[address] [facility] - Test 00:00:00 (12+) [code = Medical Center DEPRESSION SCREENING (12+)] Future Scheduled 2019-08-[address] [facility] - Test 00:00:00 measurement [facility] (procedure) [code = 66219760] Future Scheduled 2010-05-[address] [facility] - Test 00:00:00 WELLNESS (YEAR 2 or Medical Center FIRST YEAR if no IPPE) [code = MEDICARE ANNUAL WELLNESS (YEAR 2 or FIRST YEAR if no IPPE)] Future Scheduled 2009 PNEUMOCOCCAL 65+ YRS [facility] - Test 00:00:00 (1 of 1 - Medical Center [id number]) [code = PNEUMOCOCCAL 65+ YRS (1 of 1 - [id number] PCV13)] Future Scheduled 1994 SHINGLES VACCINES ([address] [facility] - Test 00:00:00 of 2) [code = SHINGLES Medic al Center VACCINES (1 of 2)] Future Scheduled 1963 DTAP/TDAP/TD VACCINES [facility] - Test 00:00:00 (1 - Tdap) [code = Medical C enter DTAP/TDAP/TD VACCINES (1 - Tdap)] Future Scheduled 1962 HEPATITIS C SCREENING [facility] - Test 00:00:00 [code = HEPATITIS C Medical Center SCREENING] Future Scheduled 1956 COVID-19 VACCINE (1) [facility] - Test 00:00:00 [code = COVID-[address] VACCINE (1)] Future Scheduled 1954 DIABETIC EYE EXAM [facility] - Test 00:00:00 [code = DIABETIC EYE Medical Center EXAM] Future Scheduled [address] [facility] - Test 00:00:00 examination Medical Center (regime/therapy) [code = 956351887] Future Scheduled 1954 Urine screening for [facility] - Test 00:00:00 protein (procedure) Medical Center [code = 874440938] Encounters Start End Encounter Admission Attending Care Care Encounter Source Date/Time Date/Time Type Type Clinicians Facility Department ID 2020-07-20 2020-07-20 Orders Doctor OTILIO [id number] 00:00:00 00:00:00 Only Unassigned, CARLA [id number] Lucas [facility] [id number] 2020-07-12 2020-07-12 Office Harshal [facility] [id number] 19 15:45:06 16:00:06 Visit [facility] [id number] Surgical [id number] Specialti [id number] [address] [place] Results Test Description Test Time Test Comments Results Result Comments Source POCT-GLUCOSE METER 2019-02-26 08:49:00 Test Item Value Reference Range Interpretation Comme nts POC-GLUCOSE METER (BEAKER) (test 162 mg/dL 70-110 H TESTED AT [facility] [address] code = 1538) [facility] 7703 0 BASIC METABOLIC [id number] 06:55:00 Test Item Value Reference Range Interpretation [...] PATIEN TS. CBC W/PLT COUNT & AUTO [id number] 05:48:00 Test Item Value Reference Range Interpretation [...] PERCENT (BEAKER) (test code = 2801) POCT-GLUCOSE [id number] 22:16:00 Test Item Value Reference Range Interpretation Comments POC-GLUCOSE METER 90 mg/dL 70-110 TESTED AT [facility] [address] (BEAKER) (test code = [place] [address] 1538) BASIC METABOLIC [id number] 09:33:00 Test Item Value Reference Range Interpretation [...] PATIEN TS. CBC W/PLT COUNT & AUTO [id number] 09:09:00 Test Item Value Reference Range Interpretation [...] (BEAKER) (test code = 2801) SODIUM NA-STAT [id number] 13:08:00 Test Item Value Reference Range Interpretation Comments SODIUM (BEAKER) (test code = 381) 139 meq/L 135-148 POTASSIUM-STAT [id number] 13:08:00 Test Item Value Reference Range Interpretation Comments POTASSIUM (BEAKER) (test code = 4.0 meq/L 3.6-5.5 379) HGB/HCT (H&H) - STAT [id number] 13:08:00 Test Item Value Reference Range Interpretation Comments HEMOGLOBIN (BEAKER) (test code = 13.9 g/dL 13.0-16.8 410) HEMATOCRIT (BEAKER) (test code = 41.0 % 40.0-50.0 411) BLOOD GAS, [id number] 13:08:00 Test Item Value Reference Range Interpretation [...] (test code = 1819) 50.0 % GLUCOSE-STAT [id number] 13:08:00 Test Item Value Reference Range Interpretation Comments GLUCOSE RANDOM (BEAKER) (test code 127 mg/dL 70-110 H = 652) CALCIUM, [id number] 12:12:00 Test Item Value Reference Range Interpretation Comments CALCIUM IONIZED (BEAKER) (test 1.81 mmol/L 1.12-1.27 HH code = 698) PH, BLOOD (BEAKER) (test code = 7.32 1810) BLOOD GAS, [id number] 12:09:00 Test Item Value Reference Range Interpretation [...] (test code = 1819) 50.0 % GLUCOSE-STAT [id number] 12:09:00 Test Item Value Reference Range Interpretation Comments GLUCOSE RANDOM (BEAKER) (test code 129 mg/dL 70-110 H = 652) HGB/HCT (H&H) - STAT [id number] 12:09:00 Test Item Value Reference Range Interpretation Comments HEMOGLOBIN (BEAKER) (test code = 13.4 g/dL 13.0-16.8 410) HEMATOCRIT (BEAKER) (test code = 39.0 % 40.0-50.0 L 411) SODIUM NA-STAT [id number] 12:08:00 Test Item Value Reference Range Interpretation Comments SODIUM (BEAKER) (test code = 381) 137 meq/L 135-148 POTASSIUM-STAT [id number] 12:08:00 Test Item Value Reference Range Interpretation Comments POTASSIUM (BEAKER) (test code = 4.0 meq/L 3.6-5.5 379) RAD, CHEST, 2 [id number] 14:00:00Reason for exam:->Preop screenFINAL REPORT Chest, PA and lateral. History: Preoperative. Comparison: Noneavailable. Discussion: The cardiomediastinal silhouette and pulmonary vasculature are within normallimits. The lungs are clear without evidence of consolidation or effusion. There are no acute osseous abnormalities. The soft tissues are unremarkable. IMPRESSION: No acute cardiopulmonary abnormality. Signed: Be Cevallos MDReport Verified Date/Time: 02/18/2019 14:00:08 Reading Location: [facility] Reading Room ELET AGGREGATION: FUNCTION [id number] 13:37:00 Test Item Value Reference Range Interpretation Comments WEAK ADP 79 % 60-91 RESULT(BEAKER) (test code = 2135) PLATELET FUNCTION 60-100% indicates SCREEN INTERP (BEAKER) normal platelet (test code = 2173) function [id number] Lilian Mcadams MD (BEAKER) (test code = (electronic signature) 2622) PLATELET COUNT AGG 179 K/CU MM 150-450 (BEAKER) (test code = 2656) Platelet Function Screen results may be falsely low with platelet counts<100,000/cu mm.for patients on clopidogrel in past two weeksHEMOGLOBIN [id number] 13:35:00 Test Item Value Reference Range Interpretation Comments HEMOGLOBIN A1C (BEAKER) (test code = 7.2 % 4.3-6.1 H 368) LIPID [id number] 12:44:00 Test Item Value Reference Range Interpretation [...] 130-159 High 160-189 Very High >=190COMPREHENSIVE METABOLIC [id number] 12:44:00 Test Item Value Reference Range Interpretation [...] NOT APPLICABLE FOR DIALYSIS PATIEN TS. PROTHROMBIN [id number] 12:38:00 Test Item Value Reference Range Interpretation [...] mechanical heart valves.CBC W/PLT COUNT & AUTO [id number] 12:29:00 Test Item Value Reference Range Interpretation [...]
--- NOTE | 2021-02-24 12:55 | RAD REPORT ---
EXAM DESCRIPTION: [place] Single View02/24/2021 12:36 pm CLINICAL HISTORY: Chest pain COMPARISON: 2014 FINDINGS: The lungs are moderately hyperaerated. The lungs appear clear of acute infiltrate. The heart is normal size IMPRESSION: COPD without visualization acute abnormality
[2021-02-24] MEDS ORDERED: ALBUTEROL 2.5 MG/3 ML NEB SOL ONE (13:13)
[2021-02-24] MEDS ORDERED: DOXYCYCLINE 100 MG CAP PO ONE (13:13)
[2021-02-24] MEDS ORDERED: IPRATROPIUM BROM 0.5MG/2.5ML ONE (13:13)
[2021-02-24] MEDS ORDERED: FUROSEMIDE 40 MG/4 ML VIAL ONE (13:13)
[2021-02-24] MEDS ORDERED: METHYLPREDNISOLONE 125 MG INJ ONE (13:13)
[2021-02-24 13:30] LABS: Absolute Lymphocytes (CBC) 2.1 K/uL (0.7-4.9); Basophils % 0.5 % (0-1.3); Hematocrit 45.6 % (39.6-49.0); Lymphocytes % 27.8 % (15.3-44.8); MPV 8.1 fL (7.6-11.3); RBC Red Blood Cell Count 4.62 M/uL (4.33-5.43)
[2021-02-24 13:39] LABS: Protime INR 0.95
--- NOTE | 2021-02-24 13:49 | ER ---
Nurse's Notes [facility] Name: Marcos Macdonald Age: 75 yrs Sex: Male : 1945 Arrival Date: 02/24/2021 Time: 12:07 Bed 18 Private MD: Diagnosis: Presentation: 02/24 12:18 Chief complaint: SOB x 3 days. reports extremity swelling x 2 days. Coronavirus hb screen: At this time, the client does not indicate any symptoms associated with coronavirus-19. Ebola Screen: No symptoms or risks identified at this time. Initial Sepsis Screen: Does the patient meet any 2 criteria? No. Patient's initial sepsis screen is negative. Does the patient have a suspected source of infection? No. Patient's initial sepsis screen is negative. Risk Assessment: Do you want to hurt yourself or someone else? Patient reports no desire to harm self or others. Onset of symptoms was February 21, 2021. 12:18 Method Of Arrival: Ambulatory hb 12:18 Acuity: KERRY 3 hb Historical: - Allergies: 12:19 NKA; hb - PMHx: 12:19 Diabetes - NIDDM; Hyperlipidemia; Hypertension; Myocardial infarction; hb - Immunization history:: Adult Immunizations up to date. - Social history:: Smoking status: Patient reports the use of cigarette tobacco products, smokes two packs cigarettes per day. Patient/guardian denies using alcohol, street drugs, The patient lives with family. - Family history:: not pertinent. Screenin:22 Abuse screen: Denies threats or abuse. Denies injuries from another. Nutritional zb screening: No deficits noted. Tuberculosis screening: No symptoms or risk factors identified. Fall Risk Fall in past 12 months (25 points). No secondary diagnosis (0 pts). IV access (20 points). Ambulatory Aid- None/Bed Rest/Nurse Assist (0 pts). Gait- Normal/Bed Rest/Wheelchair (0 pts) Mental Status- Oriented to own ability (0 pts). Total Rod Fall Scale indicates Low Risk Score (25-44 pts). Fall prevention measures have been instituted. Placed close to Nursing Station Frequent Obs/Assesments occuring Family Present and informed to notify staff if they need to leave bedside As available Patient and Family Educated on Fall Prevention Program and strategies. Assessment: 12:32 Reassessment: x-ray at bedside. zb 12:40 General: Appears in no apparent distress. uncomfortable, Behavior is calm, cooperative, zb appropriate for age. Pain: Denies pain. Neuro: Level of Consciousness is awake, alert, obeys commands, Oriented to person, place, time, situation. Cardiovascular: Heart tones S1 S2 present Patient's skin is warm and dry. Rhythm is regular. Respiratory: Reports shortness of breath at rest cough that is productive, hacking, persistent labored breathing since 4 days Airway is patent Respiratory effort is labored, Respiratory pattern is tachypnea. Respiratory: Breath sounds are diminished in left posterior lower lobe, right posterior middle lobe and right posterior lower lobe Breath sounds with wheezes in left posterior lower lobe, right posterior middle lobe and right posterior lower lobe. GI: Abdomen is round. Derm: Skin is intact, is fragile, Skin is dry, Skin is normal. Derm: Bruising that is dark purple, on right arm and left arm. Musculoskeletal: Range of motion: intact in all extremities. Vital Signs: 12:18 BP 108 / 67; Pulse 98; Resp 28; Temp 97.2; Pulse Ox 94% on R/A; Pain 0/10; hb 13:23 BP 117 / 65; Pulse 92; Resp 16; Pulse Ox 99% on 5% Nebulizer Mask; zb ED Course: 12:07 Patient arrived in ED. ds1 12:19 Triage completed. hb 12:19 Arm band placed on. hb 12:26 Adalberto Cole MD is Attending Physician. ma2 12:30 Inserted saline lock: 20 gauge in right antecubital area, using aseptic technique. zb Blood collected. 12:31 Heidy Castillo, RENEE is Primary Nurse. zb 12:36 XRAY Chest (1 view) In Process Unspecified. EDMS 13:30 Patient has correct armband on for positive identification. Placed in gown. Bed in low zb position. Call light in reach. university intern on. Pulse ox on. NIBP on. 13:30 No provider procedures requiring assistance completed. IV discontinued, intact, zb bleeding controlled, No redness/swelling at site. Pressure dressing applied. Administered Medications: 13:10 Drug: Doxycycline 100 mg Route: PO; zb 14:00 Follow up: Response: No adverse reaction zb 13:14 Drug: AtroVENT (ipratropium) Aerosol 0.5 mg Route: Inhalation; zb 13:15 Drug: Lasix (furosemide) 40 mg Route: IVP; Site: right antecubital; zb 14:00 Follow up: Response: No adverse reaction zb 13:18 Drug: SOLU-Medrol (methylPrednisoLONE) 125 mg Route: IVP; Site: right antecubital; zb 14:00 Follow up: Response: No adverse reaction zb Outcome: 13:30 AMA AMA form signed zb 13:30 Condition: stable 13:48 Patient left the ED. zb Signatures: Dispatcher [employer] EDMA Janelle Herrera ds1 Ailyn Smith RN RN hb Alzahri, Mohammad, MD MD ma2 Heidy Castillo RN RN zb
--- NOTE | 2021-02-24 13:49 | EDPHYS ---
Physician Documentation [facility] Name: Marcos Macdonald Age: 75 yrs Sex: Male : 1945 Arrival Date: 02/24/2021 Time: 12:07 Bed 18 Private MD: ED Physician Adalberto Cole HPI: 02/24 12:46 This 75 yrs old Male presents to ER via Ambulatory with complaints of ma2 Shortness Of Breath. 12:46 The patient has shortness of breath during heavy activity. Onset: The symptoms/episode ma2 began/occurred gradually, 3 day(s) ago. Associated signs and symptoms: Pertinent positives: Pertinent negatives: non-productive cough, diaphoresis, dizziness, hemoptysis, loss of consciousness, nausea, vomiting. Severity of symptoms: At their worst the symptoms were very mild in the emergency department the symptoms are unchanged. The patient has experienced similar episodes in the past, hx of copd. Historical: - Allergies: 12:19 NKA; hb - PMHx: 12:19 Diabetes - NIDDM; Hyperlipidemia; Hypertension; Myocardial infarction; hb - Immunization history:: Adult Immunizations up to date. - Social history:: Smoking status: Patient reports the use of cigarette tobacco products, smokes two packs cigarettes per day. Patient/guardian denies using alcohol, street drugs, The patient lives with family. - Family history:: not pertinent. ROS: 12:46 Constitutional: Negative for fever, chills, and weight loss. ma2 12:46 All other systems are negative. Exam: 12:46 Constitutional: This is a well developed, well nourished patient who is awake, alert, ma2 and in no acute distress. ENT: Nares patent. No nasal discharge, no septal abnormalities noted. Tympanic membranes are normal and external auditory canals are clear. Oropharynx with no redness, swelling, or masses, exudates, or evidence of obstruction, uvula midline. Mucous membranes moist. Neck: Trachea midline, no thyromegaly or masses palpated, and no cervical lymphadenopathy. Supple, full range of motion without nuchal rigidity, or vertebral point tenderness. No Meningismus. Chest/axilla: Normal chest wall appearance and motion. Nontender with no deformity. No lesions are appreciated. Cardiovascular: Regular rate and rhythm with a normal S1 and S2. No gallops, murmurs, or rubs. Normal PMI, no JVD. No pulse deficits. Respiratory: bilat diffuse expir. wheezes, otherwise Lungs have equal breath sounds bilaterally No rales, rhonchi noted. No increased work of breathing, no retractions or nasal flaring. Abdomen/GI: Soft, non-tender, with normal bowel sounds. No distension or tympany. No guarding or rebound. No evidence of tenderness throughout. Neuro: Awake and alert, GCS 15, oriented to person, place, time, and situation. Cranial nerves II-XII grossly intact. Motor strength 5/5 in all extremities. Sensory grossly intact. Cerebellar exam normal. Normal gait. Vital Signs: 12:18 BP 108 / 67; Pulse 98; Resp 28; Temp 97.2; Pulse Ox 94% on R/A; Pain 0/10; hb 13:23 BP 117 / 65; Pulse 92; Resp 16; Pulse Ox 99% on 5% Nebulizer Mask; zb MDM: 12:26 Patient medically screened. [facility] 12:46 Differential diagnosis: Anxiety Reaction asthma, Bronchitis CHF exacerbation, Chronic ma2 Obstructive Pulmonary Disease pneumonia, reactive airway disease. 14:17 Data reviewed: vital signs, nurses notes. Counseling: I had a detailed discussion with [facility] the patient and/or guardian regarding: the historical points, exam findings, and any diagnostic results supporting the discharge/admit diagnosis, the presence of at least one elevated blood pressure reading (>120/80) during this emergency department visit, the need for outpatient follow up. 02/24 12:27 Order name: Basic Metabolic Panel [facility] 02/24 12:27 Order name: CBC with Diff; Complete Time: 13:46 [facility] 02/24 12:27 Order name: LFT's [facility] 02/24 12:27 Order name: Magnesium [facility] 02/24 12:27 Order name: NT PRO-BNP [facility] 02/24 12:27 Order name: PT-INR [facility] 02/24 12:27 Order name: Troponin (emerg Dept Use Only) [facility] 02/24 12:27 Order name: XRAY Chest (1 view); Complete Time: 13:16 [facility] 02/24 12:28 Order name: Basic Metabolic Panel EDMS 02/24 12:44 Order name: Blood Culture Adult (2) [facility] 02/24 12:27 Order name: EKG; Complete Time: 12:28 ma2 02/24 12:27 Order name: IV Saline Lock; Complete Time: 13:19 pr2 02/24 12:27 Order name: Labs collected and sent; Complete Time: 13:19 ma2 02/24 12:27 Order name: O2 Per Protocol; Complete Time: 13:19 ma2 02/24 12:27 Order name: O2 Sat Monitoring; Complete Time: 13: ma2 Administered Medications: 13:10 Drug: Doxycycline 100 mg Route: PO; zb 14:00 Follow up: Response: No adverse reaction zb 13:14 Drug: AtroVENT (ipratropium) Aerosol 0.5 mg Route: Inhalation; zb 13:15 Drug: Lasix (furosemide) 40 mg Route: IVP; Site: right antecubital; zb 14:00 Follow up: Response: No adverse reaction zb 13:18 Drug: SOLU-Medrol (methylPrednisoLONE) 125 mg Route: IVP; Site: right antecubital; zb 14:00 Follow up: Response: No adverse reaction zb Disposition: 02/24/21 13:48 Patient has left against medical advice. - Patients states they are going to Home. - Condition is Stable. - Prescriptions for NEBULIZER MACHINE - inhale 2 Each by INHALATION route 2 times per day; 1 Each. Albuterol Sulfate 2.5 mg /3 mL (0.083 %) Inhalation Solution for Nebulization - inhale 1 unit by NEBULIZATION route every 8 hours As needed; 1 box. Doxycycline Hyclate 100 mg Oral Tablet - take 1 tablet by ORAL route every 12 hours; 20 tablet. Medrol (Emiliano) 4 mg Oral Tablets, Dose Pack - take 1 tablet by ORAL route as directed - follow package instructions; 1 packet. Albuterol Sulfate 90 mcg/actuation - inhale 1-2 puff by INHALATION route every 4-6 hours; 1 Inhaler. Signatures: Dispatcher [employer] EDAilyn Perez RN RN hb Alzahri, Mohammad, MD MD ma2 Heidy Castillo RN RN zb Corrections: (The following items were deleted from the chart) 14:18 13:48 02/24/2021 13:48 Patients has left against medical advice. Patient states they ma2 are going to Home. Condition is Stable. Prescriptions for NEBULIZER MACHINE - inhale 2 Each by INHALATION route 2 times per day; 1 Each, Albuterol Sulfate 2.5 mg /3 mL (0.083 %) Inhalation Solution for Nebulization - inhale 1 unit by NEBULIZATION route every 8 hours As needed; 1 box, Doxycycline Hyclate 100 mg Oral Tablet - take 1 tablet by ORAL route every 12 hours; 20 tablet, Medrol (Emiliano) 4 mg Oral Tablets, Dose Pack - take 1 tablet by ORAL route as directed - follow package instructions; 1 packet, Albuterol Sulfate 90 mcg/actuation - inhale 1-2 puff by INHALATION route every 4-6 hours; 1 Inhaler zb
[2021-02-24 13:53] VITALS: TEMP 97.2
[2021-02-24 13:54] VITALS: BP 117/65; O2SAT 99
[2021-02-24 14:05] LABS: ALT/SGPT 23 U/L (12-78); AST/SGOT 12 U/L (15-37); Albumin 3.6 g/dL (3.4-5.0); Alkaline Phosphatase 77 U/L (45-117); BUN Blood Urea Nitrogen 14 mg/dL (7-18); Bicarbonate 30 mmol/L (21-32); Bilirubin Direct 0.1 mg/dL (0-0.2); Bilirubin Total 0.5 mg/dL (0.2-1.0); Glucose Level 117 mg/dL (74-106); Magnesium 1.9 mg/dL (1.8-2.4); NT PRO-BNP 36 pg/mL (<450); Potassium 3.9 mmol/L (3.5-5.1); Sodium Level 144 mmol/L (136-145); Troponin (Emerg Dept Use Only) < 0.02 ng/mL (0.0-0.045)
[2021-02-24 16:17] LABS: Creatine Phosphokinase 36 U/L (39-308); Lipase 43 U/L (73-393)
[2021-02-24 16:19] LABS: CKMB Creatine Kinase MB < 1.0 ng/mL (1.0-3.6)
--- NOTE | 2021-02-26 08:26 | EKG ---
Test Date: 2021-02-24 Test Time: 13:25:53 Portfolio Administrator: JUDY MEASUREMENT RESULTS: Intervals: Rate: 101 MT: 148 QRSD: 86 QT: 346 QTc: 448 [place]: P: 74 MT: 148 QRS: 72 T: 69 INTERPRETIVE STATEMENTS: Sinus tachycardia with premature atrial complexes Otherwise normal ECG Compared to ECG 02/03/2019 08:31:26 Atrial premature complex(es) now present Sinus rhythm no longer present Ventricular premature complex(es) no longer present Electronically Signed On 02-26-21 08:24:10 CDT by Kaushik Tai
== END 2021-02-24 13:48 | disposition left against medical advice (07) ==
LOC: ER 12:05
DX: R06.02 Shortness of breath (principal); I10 Essential (primary) hypertension; I25.2 Old myocardial infarction; F17.210 Nicotine dependence, cigarettes, uncomplicated
CPT/HCPCS: 93005; 87040 ×2; 85025; 80048; 36415; 83735; 82550; 85610; 80076; 85730; 84484; 82553; 83690; 83880; 71045; J1940; J2930; 96374; 96375; 99285

== ENCOUNTER 2022-03-12 09:11 | Emergency (ER) | payer OTHER ==
[2022-03-12] MEDS ORDERED: TETANUS & DIPHTHERIA TOX,ADULT 0.5 ML VIAL ONE (09:36)
--- NOTE | 2022-03-12 09:59 | RAD REPORT ---
EXAM DESCRIPTION: CT - CTHCSPWOC - 03/12/2022 9:43 am CLINICAL HISTORY: fall, head and neck injury COMPARISON: No comparisons TECHNIQUE: Axial 5 mm thick images of the head were obtained. Axial 2 mm thick images of the cervic al spine were obtained with sagittal and coronal reconstruction images generated and reviewed. All CT scans are performed using dose optimization technique as appropriate and may include automated exposure control or mA/KV adjustment according to patient size. FINDINGS: No intracranial hemorrhage, mass, edema or acute intracranial finding. No suspicion for ac augustine cortical level infarction. No cortical edema or sulcal effacement. Mild to moderate atrophy king es are present. Ventricles are in proportion to the volume loss. Chronic ischemic pattern is minimal. There are dense arterial tree calcifications present. No extra-axial fluid collections. Mastoid air cells and paranasal sinuses are clear. No globe or orbit abnormality seen. No skull fracture. No chelsey urable scalp hematoma. Cervical bodies are normal in height. There is reversal of the usual cervical lordosis at the C5-6 le lan. C4-5, C5-6 and C6-7 disc levels show loss in disc height. There is slight anterior subluxation o f C4 on C5. C4-5 facet joint degenerative changes are present. Degenerative changes are present at th e dens anterior arch C1 level. No dens fracture identified. No fracture or acute bony finding elsewhe re in the cervical spine. Prominent facet joint degenerative changes are present. There is mild right foraminal stenosis at C2-3 and bilaterally at C3-4. Mild right-side and moderate left-sided foramina l stenosis at C4-5. There is moderate bilateral foraminal stenosis at C5-6 and C6-7. Canal is borderl ine stenotic at C5-6. Central canal detail is inherently limited. No paraspinal mass or hematoma. A 5 centimeter long area of stenting of the right-sided carotid vascu lature performed. Very dense left carotid calcifications are present. Motion limits assessment of any stent that may have been placed in the left carotid vasculature. IMPRESSION: No hemorrhage, edema or acute intracranial finding identifiable. Cervical spine degenerative changes are present as detailed. No acute findings identifiable.
--- NOTE | 2022-03-12 10:08 | EDPHYS ---
Physician Documentation [facility] Name: Marcos Macdonald Age: 76 yrs Sex: Male : 1945 Arrival Date: 03/12/2022 Time: 09:13 Bed 5 Private MD: Manuel Sen ED Physician Damien Hancock HPI: 03/12 09:23 This 76 yrs old Male presents to ER via Unassigned with complaints of Fall Injury, Skin ms3 Tear(s). 09:23 Details of fall: The patient fell from an upright position, while standing. Onset: The ms3 symptoms/episode began/occurred acutely, 3 hour(s) ago. Associated injuries: The patient sustained left forearm, skin tear. Severity of symptoms: At their worst the symptoms were moderate, in the emergency department the symptoms are unchanged. Historical: - Allergies: 09:25 NKA; ld1 - PMHx: :25 Diabetes - NIDDM; Hyperlipidemia; Hypertension; Myocardial infarction; ld1 - PSHx: : None; ld1 - Immunization history:: Adult Immunizations up to date, Client reports receiving the 2nd dose of the Covid vaccine. - Social history:: Smoking status: Patient reports the use of cigarette tobacco products, smokes three packs cigarettes per day. Patient/guardian denies using alcohol. ROS: 09:23 Constitutional: Negative for fever, and chills. Neck: Negative for injury, pain, and ms3 swelling, Cardiovascular: Negative for chest pain, and palpitations. Respiratory: Negative for shortness of breath, cough, wheezing, and pleuritic chest pain, Abdomen/GI: Negative for abdominal pain, nausea, vomiting, diarrhea, and constipation. 09:23 Skin: Positive for left forearm skin tear. 09:23 All other systems are negative. Exam: 09:23 Constitutional: This is a well developed, well nourished patient who is awake, alert, ms3 and in no acute distress. Head/Face: Normocephalic, atraumatic. Neck: Trachea midline, no cervical lymphadenopathy. Supple, full range of motion without nuchal rigidity, or vertebral point tenderness. No Meningismus. Chest/axilla: Normal chest wall appearance and motion. Nontender with no deformity. Cardiovascular: Regular rate and rhythm with a normal S1 and S2. No gallops, murmurs, or rubs. Normal PMI, no JVD. No pulse deficits. Respiratory: Lungs have equal breath sounds bilaterally, clear to auscultation and percussion. No rales, rhonchi or wheezes noted. No increased work of breathing, no retractions or nasal flaring. Abdomen/GI: Soft, non-tender, with normal bowel sounds. No distension or tympany. No guarding or rebound. No evidence of tenderness throughout. 09:23 Skin: injury, skin tear left forearm. Vital Signs: 09:25 BP 129 / 65; Pulse 120; Resp 18; Temp 97.6(TE); Pulse Ox 100% on R/A; Weight 68.04 kg; ld1 Height 5 ft. 8 in. (172.72 cm); Pain 2/10; 10:12 BP 139 / 73; Pulse 105; Resp 15; Pulse Ox 96% ; jl7 09:25 Body Mass Index 22.81 (68.04 kg, 172.72 cm) ld1 MDM: 09:14 Patient medically screened. ms3 09:23 Differential diagnosis: abrasion, closed head injury, contusion, sprain, strain. ms3 10:07 Data reviewed: vital signs, nurses notes, radiologic studies, CT scan, and as a result, ms3 I will discharge patient. Counseling: I had a detailed discussion with the patient and/or guardian regarding: the historical points, exam findings, and any diagnostic results supporting the discharge/admit diagnosis, radiology results, the need for outpatient follow up. ED course: Discussed CT head and cervical spine, and physical exam findings with patient. Patient to follow-up with primary care physician in 2 to 3 days. Patient understands and agrees with plan. All questions were answered. Return precautions discussed include worsening symptoms, or any other concerns. On reevaluation patient is alert and oriented x4, in no apparent distress, nontoxic-appearing, speaking full sentences, ambulatory in emergency department.. 03/12 09:23 Order name: CT Head C Spine; Complete Time: 10:05 ms3 Administered Medications: 09:33 Drug: ADAcel 0.5 ml {Electronics Maintenance Technician: [employer]. Exp: 12/01/2023. Lot #: [id number]. } ld1 Route: IM; Site: left deltoid; 09:34 Follow up: Response: No adverse reaction ld1 Disposition Summary: 07/05/22 10:07 Discharge Ordered Location: Home ms3 Condition: Stable ms3 Diagnosis - Fall on same level, unspecified ms3 - skin tear left forearm ms3 Followup: ms3 - With: Manuel Sen MD - When: 2 - 3 days - Reason: Recheck today's complaints Discharge Instructions: - Discharge Summary Sheet ms3 - Skin Tear, [id number] ms3 Forms: - Medication Reconciliation Form ms3 - Thank You Letter ms3 - Antibiotic Education ms3 - Prescription Opioid Use ms3 Signatures: Dispatcher [employer] EDMS Damien Hancock DO DO ms3 Roxane Zendejas RN RN ld1 Corrections: (The following items were deleted from the chart) 09:24 09:23 The history from the nurse's notes was reviewed and I agree with what is ms3 documented. ms3
--- NOTE | 2022-03-12 10:08 | ER ---
Nurse's Notes [facility] Name: Marcos Macdonald Age: 76 yrs Sex: Male : 1945 Arrival Date: 03/12/2022 Time: 09:13 Bed 5 Private MD: Manuel Sen Diagnosis: Fall on same level, unspecified;skin tear left forearm Presentation: 03/12 09:23 Chief complaint: Patient states: I tripped on my robe and fell this morning - skin tear ld1 to right forearm. Denies hitting head. Care prior to arrival: None. Mechanism of Injury: Fall from standing position. 09:23 Acuity: KERRY 3 ld1 09:23 Method Of Arrival: Ambulatory ld1 09:25 Coronavirus screen: At this time, the client does not indicate any symptoms associated ld1 with coronavirus-19. Ebola Screen: No symptoms or risks identified at this time. Initial Sepsis Screen: Does the patient meet any 2 criteria? No. Patient's initial sepsis screen is negative. Does the patient have a suspected source of infection? No. Patient's initial sepsis screen is negative. Risk Assessment: Do you want to hurt yourself or someone else? Patient reports no desire to harm self or others. Onset of symptoms was March 12, 2022 at 09:25. Triage Assessment: 09:25 General: Appears in no apparent distress. comfortable, Behavior is calm, cooperative, ld1 appropriate for age. Pain: Complains of pain in dorsal aspect of right forearm Pain does not radiate. Pain currently is 2 out of 10 on a pain scale. EENT: No signs and/or symptoms were reported regarding the EENT system. Neuro: Level of Consciousness is awake, alert, obeys commands, Oriented to person, place, time, situation. Cardiovascular: Capillary refill < 3 seconds Patient's skin is warm and dry. Respiratory: Airway is patent Respiratory effort is even, unlabored. GI: Abdomen is flat, non-distended. : No signs and/or symptoms were reported regarding the genitourinary system. Derm: Wound noted right arm. Musculoskeletal: No signs and/or symptoms reported regarding the musculoskeletal system. Injury Description: Laceration sustained to right arm. Historical: - Allergies: 09:25 NKA; ld1 - PMHx: 09:25 Diabetes - NIDDM; Hyperlipidemia; Hypertension; Myocardial infarction; ld1 - PSHx: 09:25 None; ld1 - Immunization history:: Adult Immunizations up to date, Client reports receiving the 2nd dose of the Covid vaccine. - Social history:: Smoking status: Patient reports the use of cigarette tobacco products, smokes three packs cigarettes per day. Patient/guardian denies using alcohol. Screenin:35 Abuse screen: Denies threats or abuse. Denies injuries from another. Nutritional jl7 screening: No deficits noted. Tuberculosis screening: No symptoms or risk factors identified. Fall Risk Fall in past 12 months (25 points). Total Rod Fall Scale indicates Low Risk Score (25-44 pts). Fall prevention measures have been instituted. Side Rails Up X 2 Frequent Obs/Assesments occuring Family Present and informed to notify staff if they need to leave bedside As available Patient and Family Educated on Fall Prevention Program and strategies. Assessment: 09:35 General: Appears in no apparent distress. uncomfortable, Behavior is calm, cooperative, jl7 appropriate for age. Pain: Complains of pain in dorsal aspect of right forearm Pain currently is 2 out of 10 on a pain scale. Neuro: Level of Consciousness is awake, alert, obeys commands, Oriented to person, place, time, situation. Cardiovascular: Patient's skin is warm and dry. Respiratory: Airway is patent Respiratory effort is even, unlabored, Respiratory pattern is regular, symmetrical. Derm: Skin is pink, warm \T\ dry. Injury Description: skin tear to right forearm. Vital Signs: 09:25 BP 129 / 65; Pulse 120; Resp 18; Temp 97.6(TE); Pulse Ox 100% on R/A; Weight 68.04 kg; ld1 Height 5 ft. 8 in. (172.72 cm); Pain 2/10; 10:12 BP 139 / 73; Pulse 105; Resp 15; Pulse Ox 96% ; jl7 09:25 Body Mass Index 22.81 (68.04 kg, 172.72 cm) ld1 ED Course: 09:13 Patient arrived in ED. mr 09:13 Manuel Sen MD is Private Physician. mr 09:14 Damien Hancock DO is Attending Physician. ms3 09:22 Haydee Tsai RN is Primary Nurse. jl7 09:25 Triage completed. ld1 09:25 Arm band placed on right wrist. ld1 09:35 Patient has correct armband on for positive identification. Bed in low position. Call jl7 light in reach. Side rails up X 1. Pulse ox on. NIBP on. 09:35 Wound care: to skin tear located on dorsal aspect of right forearm was cleaned with jl7 Betadine, Patient tolerated well. 09:45 CT Head C Spine In Process Unspecified. EDMS 10:06 Manuel Sen MD is Referral Physician. ms3 10:12 No provider procedures requiring assistance completed. Patient did not have IV access jl7 during this emergency room visit. 10:12 Dressings: non-adherent dressing x 2 dorsal aspect of right forearm. jl7 Administered Medications: 09:33 Drug: ADAcel 0.5 ml {Tank Terminal Gauger: [employer]. Exp: 12/01/2023. Lot #: [id number]. } ld1 Route: IM; Site: left deltoid; 09:34 Follow up: Response: No adverse reaction ld1 Medication: 09:35 Vaccine Information Statement (VIS) provided today. Questions and/or concerns ld1 addressed. VIS edition date: March 12, 2022. Outcome: 10:07 Discharge ordered by . ms3 10:12 Discharged to home ambulatory. jl7 10:12 Condition: stable 10:12 Discharge instructions given to patient, Instructed on discharge instructions, follow up and referral plans. Demonstrated understanding of instructions, follow-up care. 10:17 Patient left the ED. jl7 Signatures: Dispatcher [employer] WOLFGANGSC Bhargavi Reyes Jahala RN RN jl7 Damien Hancock DO DO ms3 Roxane Zendejas RN RN ld1 Corrections: (The following items were deleted from the chart) 09:24 09:23 The history from the nurse's notes was reviewed and I agree with what is ms3 documented. ms3
[2022-03-12] MEDS ORDERED: MUPIROCIN 2% OINT 22GM TUBE TOP ONE (10:15)
[2022-03-12 10:36] VITALS: BP 129/65; TEMP 97.6; O2SAT 100
== END 2022-03-12 10:17 | disposition home or self-care (01) ==
LOC: ER 09:11
DX: S51.812A Laceration without foreign body of left forearm, initial encounter (principal); W18.30XA Fall on same level, unspecified, initial encounter; I10 Essential (primary) hypertension; E11.9 Type 2 diabetes mellitus without complications; F17.210 Nicotine dependence, cigarettes, uncomplicated; Z23 Encounter for immunization
CPT/HCPCS: 70450; 72125; 90471; 90714; 99284

== ENCOUNTER 2024-01-06 07:04 | Emergency (ER) | payer OTHER ==
[2024-01-06] MEDS ORDERED: NA CHLORIDE 0.9% 500 ML ONE (07:42)
[2024-01-06] MEDS ORDERED: ONDANSETRON 4 MG/2 ML VIAL ONE (07:42)
[2024-01-06] MEDS ORDERED: MORPHINE 2 MG/ML SYR ONE (07:42)
--- NOTE | 2024-01-06 08:03 | RAD REPORT ---
EXAM DESCRIPTION: CT - Head C Spine Mpr Wo Con - 01/06/2024 7:39 am CLINICAL HISTORY: Head and neck injury status post fall. Head and neck pain COMPARISON: 2021 TECHNIQUE: Computed axial tomography of the head and cervical spine was obtained. Sagittal and coronal reconstruction was performed. All CT scans are performed using dose optimization technique as appropriate and may include automated exposure control or mA/KV adjustment according to patient size. FINDINGS: An intracranial bleed is not seen. The ventricles are normal in caliber. Cerebral atrophy. Low density right temporal lobe may be secondary to an old infarction. An extra-axial fluid collection is not noted. Fluid within the visualized sinuses and mastoids is not seen A cervical fracture is not visualized. No dislocation is noted. Spondylosis cervical spine. Mild posterior subluxation C3 on C4. Mild anterior subluxation C4 on C5. Mild posterior subluxation C5 on C6. These are all chronic changes. IMPRESSION: No acute intracranial abnormality is seen. A cervical fracture is not visualized. If the patient continues to have symptoms to suggest intracranial /spinal cord pathology then MRI wou ld be recommended
[2024-01-06 08:12] LABS: Absolute Basophils 0.1 K/uL (0-0.5); Absolute Lymphocytes (CBC) 1.5 K/uL (0.7-4.9); Absolute Monocytes 0.7 K/uL (0.1-1.3); Absolute Neutrophil 9.2 K/uL (1.8-8.0); Basophils % 0.5 % (0-1.3); Eosinophils % 0.1 % (0-4.4); Hematocrit 39.9 % (39.6-49.0); Hemoglobin 13.1 g/dL (13.6-17.9); MCH 32.8 pg (27.0-35.0); MCHC 32.8 g/dL (32.0-36.0); MPV 7.9 fL (7.6-11.3); Monocytes % 5.9 % (3.3-12.3); Neutrophils % 80.5 % (41.7-73.7); Platelets 300 thou/uL (152-406); RBC Red Blood Cell Count 3.99 M/uL (4.33-5.43); Red Cell Distribution Width 14.5 % (12.1-15.2)
[2024-01-06 08:15] LABS: PT Prothrombin Time 12.6 SECONDS (9.5-12.5); PTT, Activated Partial Thromb 32.8 SECONDS (24.3-36.9); Protime INR 1.15
[2024-01-06 08:21] LABS: Anion Gap 4.5 mEq/L (5.0-15.0); Potassium 4.5 mEq/L (3.5-5.1)
--- NOTE | 2024-01-06 08:48 | RAD REPORT ---
EXAM DESCRIPTION: RAD - Pelvis - 01/06/2024 8:15 am CLINICAL HISTORY: Pelvic pain status post injury FINDINGS: No fracture or dislocation is seen. If the patient continues to have symptoms to suggest a n occult fracture MRI would be recommended A 14 millimeter sclerotic lesion proximal right femur is nonspecific. A followup x-ray in 3 months re commended to assess stability. Osteoporosis
--- NOTE | 2024-01-06 08:49 | RAD REPORT ---
EXAM DESCRIPTION: RAD - Hip Right 2 View - 01/06/2024 8:15 am CLINICAL HISTORY: Right hip pain FINDINGS: No fracture or dislocation is seen. If the patient continues to have symptoms to suggest an occult fr acture MRI would be recommended A 14 millimeter sclerotic lesion proximal right femur is nonspecific. It could be benign or represent a blastic metastasis. A followup x-ray in 3 months recommended to assess stability. Osteoporosis
--- NOTE | 2024-01-06 09:01 | RAD REPORT ---
EXAM DESCRIPTION: RAD - Elbow Right 3 View - 01/06/2024 8:15 am CLINICAL HISTORY: Right elbow pain status post injury FINDINGS: No fracture or dislocation is seen.
--- NOTE | 2024-01-06 09:01 | RAD REPORT ---
EXAM DESCRIPTION: RAD - Humerus Right - 01/06/2024 8:15 am CLINICAL HISTORY: Right arm pain status post fall FINDINGS: A comminuted impacted markedly displaced fracture right humeral head and neck. No dislocation seen
--- NOTE | 2024-01-06 09:02 | RAD REPORT ---
EXAM DESCRIPTION: [place] Single View01/06/2024 8:15 am CLINICAL HISTORY: Chest pain COMPARISON: 2020 FINDINGS: The lungs appear clear of acute infiltrate. The heart is normal size. Lungs are hyperaera bee Comminuted impacted fracture right humeral head and neck
--- NOTE | 2024-01-06 10:19 | ER ---
Nurse's Notes [facility] Name: Marcos Macdonald Age: 78 yrs Sex: Male : 1945 Arrival Date: 01/06/2024 Time: 07:04 Bed 16 Private MD: Diagnosis: Displaced transverse fracture of shaft of humerus, right arm, initial encounter for closed fracture Presentation: 01/05 07:15 Chief complaint: Spouse and/or significant other states: tripped and fell early this iw morning fell on right side , he was unable to get himself off the floor , happened around 0330 , he was on the ground for an hour and half. 07:15 Acuity: KERRY 3 iw 07:16 Coronavirus screen: At this time, the client does not indicate any symptoms associated iw with coronavirus-19. Ebola Screen: Patient negative for fever greater than or equal to 101.5 degrees Fahrenheit, and additional compatible Ebola Virus Disease symptoms Patient denies exposure to infectious person. Patient denies travel to an Ebola-affected area in the 21 days before illness onset. Onset of symptoms was January 06, 2024. 07:16 Method Of Arrival: Wheelchair iw 07:17 Initial Sepsis Screen: Does the patient meet any 2 criteria? No. Patient's initial iw sepsis screen is negative. Does the patient have a suspected source of infection? No. Patient's initial sepsis screen is negative. Risk Assessment: Do you want to hurt yourself or someone else? Patient reports no desire to harm self or others. Triage Assessment: 07:20 General: Appears distressed, uncomfortable, Behavior is calm, cooperative, appropriate bp for age. Pain: Complains of pain in right arm. Neuro: Level of Consciousness is awake, alert, obeys commands, Oriented to Appropriate for age. Musculoskeletal: Reports pain in right arm. Historical: - Allergies: 07:17 Azithromycin; iw - PMHx: 07:16 Diabetes - NIDDM; Hyperlipidemia; Hypertension; Myocardial infarction; iw - Immunization history:: Adult Immunizations up to date. - Infectious Disease History:: Denies. - Family history:: not pertinent. - Social history:: Smoking status: Patient reports the use of cigarette tobacco products, unknown amount. - Hospitalizations: : No recent hospitalization is reported. Screenin:23 [facility] ED Fall Risk Assessment (Adult) History of falling in the last 3 months, bp including since admission Yes- single mechanical fall (1 pt). Abuse screen: Denies threats or abuse. Denies injuries from another. Nutritional screening: No deficits noted. Tuberculosis screening: No symptoms or risk factors identified. Assessment: 07:23 General: Appears in no apparent distress. uncomfortable, Behavior is appropriate for bp age. Pain: Complains of pain in right arm. Musculoskeletal: Circulation, motion, and sensation intact. Range of motion: limited in right shoulder and right elbow. 09:23 Reassessment: No changes from previously documented assessment. Patient is alert, bp oriented x 3, equal unlabored respirations, skin warm/dry/pink. 11:09 Reassessment: DC HOME VIA WHEELCHAIR. bp Vital Signs: 07:16 BP 102 / 54; Pulse 107; Resp 19; Temp 97.4; Pulse Ox 95% on R/A; iw 09:23 BP 113 / 55; Pulse 53; Resp 23; Pulse Ox 99% ; bp 10:20 BP 124 / 65; Pulse 57; Resp 14; Pulse Ox 95% ; bp ED Course: 07:07 Patient arrived in ED. jj6 07:08 Bhavin Milligan MD is Attending Physician. rn 07:16 Triage completed. iw 07:16 Arm band placed on. iw 07:22 Jeevan Newberry, RN is Primary Nurse. bp 07:23 Patient has correct armband on for positive identification. Bed in low position. Call bp light in reach. 07:38 CT Head C Spine In Process Unspecified. EDMS 07:46 XRAY Chest (1 view) Sent. bp 07:54 Protime (+inr) Sent. bp 07:54 Ptt, Activated Sent. bp 07:55 Basic Metabolic Panel Sent. bp 07:55 CBC with Diff Sent. bp 07:55 Inserted saline lock: 22 gauge in left forearm, using aseptic technique. Blood bp collected. 08:16 XRAY Elbow RIGHT 3 view In Process Unspecified. EDMS 08:16 XRAY Humerus RIGHT In Process Unspecified. EDMS 08:16 XRAY Pelvis In Process Unspecified. EDMS 08:16 XRAY Hip RIGHT 2 view In Process Unspecified. EDMS 08:16 XRAY Chest (1 view) In Process Unspecified. EDMS 10:03 Wound care: to SKIN TEAR located on right elbow was dressed with 4X4s, cling, Patient bp tolerated well. 10:18 Anderson Potter MD is Referral Physician. rn 10:20 Sling applied to right arm. bp 10:21 No provider procedures requiring assistance completed. IV discontinued, intact, bp bleeding controlled, No redness/swelling at site. Pressure dressing applied. 11:09 Provided Education on: N/A. bp Administered Medications: 07:54 Drug: NS 0.9% IV 500 ml IV at bolus once Route: IV; Rate: bolus; Site: left forearm; bp 11:10 Follow up: IV Status: Completed infusion; IV Intake: 500ml bp 07:54 Drug: Ondansetron IVP 4 mg IVP once; over 2 minutes Route: IVP; Site: left forearm; bp 10:21 Follow up: Response: No adverse reaction bp 07:54 Drug: morphine IVP or IV 2 mg IVP once over 4 mins Route: IVP; Infused Over: 4 mins; bp Site: left forearm; 10:21 Follow up: Response: No adverse reaction bp Medication: 07:23 VIS not applicable for this client. bp Intake: 11:10 IV: 500ml; Total: 500ml. bp Outcome: 10:19 Discharge ordered by MD. rn 11:09 Discharged to home via wheelchair, with family, bp 11:09 Condition: stable 11:09 Discharge instructions given to patient, family, Instructed on discharge instructions, follow up and referral plans. medication usage, Demonstrated understanding of instructions, follow-up care, medications, splint care, Prescriptions given X 1, 11:10 Patient left the ED. bp Signatures: Dispatcher [employer] EDMS Ailyn Dow RN RN iw Bhavin Milligan MD MD rn Peltier, Brian, RN RN bp Ivet Gregory jj6 Corrections: (The following items were deleted from the chart) 07:17 07:15 Chief complaint: Spouse and/or significant other states: tripped and fell early iw this morning fell on right side iw 07:17 07:16 Allergies: NKA; iw iw 07:18 07:15 Chief complaint: Spouse and/or significant other states: tripped and fell early iw this morning fell on right side , he was unable to get himself off the floor , happened around 0330 iw
--- NOTE | 2024-01-06 10:19 | EDPHYS ---
Physician Documentation [facility] Name: Marcos Macdonald Age: 78 yrs Sex: Male : 1945 Arrival Date: 01/06/2024 Time: 07:04 Bed 16 Private MD: ED Physician Bhavin Milligan HPI: 01/05 07:32 This 78 yrs old Male presents to ER via Wheelchair with complaints of Fall Injury. rn 07:32 Details of fall: The patient fell from an upright position. Onset: The symptoms/episode rn began/occurred this morning. Associated injuries: The patient sustained injury to the head, Okay right shoulder, right hip. Severity of symptoms: At their worst the symptoms were moderate, in the emergency department the symptoms are unchanged. 07:33 The patient has experienced similar episodes in the past. Patient reports walking, got rn lightheaded, fell onto right side. States hit head but no LOC. No vomiting. Remembers all events. Denies neck or back pain. Reports pain mainly to right shoulder and a little bit of pain to right hip. States gets dizzy sometimes and falls.. Historical: - Allergies: 07:17 Azithromycin; iw - PMHx: 07:16 Diabetes - NIDDM; Hyperlipidemia; Hypertension; Myocardial infarction; iw - Immunization history:: Adult Immunizations up to date. - Infectious Disease History:: Denies. - Family history:: not pertinent. - Social history:: Smoking status: Patient reports the use of cigarette tobacco products, unknown amount. - Hospitalizations: : No recent hospitalization is reported. ROS: 07:33 Constitutional: Negative for fever, chills, and weight loss, Neck: Negative for injury, rn pain, and swelling, Cardiovascular: Negative for chest pain, palpitations, and edema, Respiratory: Negative for shortness of breath, cough, wheezing, and pleuritic chest pain, Abdomen/GI: Negative for abdominal pain, nausea, vomiting, diarrhea, and constipation, Back: Negative for injury and pain, MS/Extremity: Positive for right shoulder and right hip pain Skin: Negative for injury, rash, and discoloration, Neuro: Positive for headache Exam: 07:33 Constitutional: This is a well developed, well nourished patient who is awake, alert, rn and in no acute distress. Head/Face: Normocephalic, atraumatic. Neck: No midline cervical tenderness Chest/axilla: Normal chest wall appearance and motion. Nontender with no deformity Cardiovascular: Regular rate and rhythm. Respiratory: Pursed lip breathing, no retractions Abdomen/GI: Soft, nontender, nondistended Back: No spinal tenderness. MS/ Extremity: Pulses equal, strong pulses antecubital which is below fracture, no cyanosis. Right proximal humerus swelling with ecchymosis and contusion. No open wounds. Right elbow with skin tear, no active bleeding. Full range of motion and neurovascularly intact at the wrist and hand. No discoloration of the hand or signs of poor perfusion Neuro: Awake and alert, GCS 15, oriented to person, place, time, and situation. Vital Signs: 07:16 BP 102 / 54; Pulse 107; Resp 19; Temp 97.4; Pulse Ox 95% on R/A; iw 09:23 BP 113 / 55; Pulse 53; Resp 23; Pulse Ox 99% ; bp 10:20 BP 124 / 65; Pulse 57; Resp 14; Pulse Ox 95% ; bp MDM: 07:08 Patient medically screened. rn 10:17 Differential diagnosis: abrasion, closed head injury, contusion, fracture, sprain, rn strain. Data reviewed: vital signs, nurses notes, lab test result(s), radiologic studies, CT scan, plain films, and as a result, I will discharge patient. Counseling: I had a detailed discussion with the patient and/or guardian regarding the historical points, exam findings, and any diagnostic results supporting the discharge/admit diagnosis, lab results, radiology results, the need for outpatient follow up, to return to the emergency department if symptoms worsen or persist or if there are any questions or concerns that arise at home. Special discussion: I discussed with the patient/guardian in detail that at this point there is no indication for admission to the hospital. It is understood, however, that if the symptoms persist or worsen the patient needs to return immediately for re-evaluation. Based on the history and exam findings, there is no indication for further emergent testing or inpatient evaluation. I discussed with the patient/guardian the need to see the orthopedic surgeon for further evaluation of the symptoms. ED course: Patient improved, resting comfortably. Has a proximal humeral transverse fracture, neurovascularly intact distally to fracture site. No other acute traumatic findings. Will discharge home with return precautions. Has PCP follow-up tomorrow.. 01/05 07:33 Order name: CBC with Diff; Complete Time: 08:23 rn 01/05 07:33 Order name: Basic Metabolic Panel; Complete Time: 08:23 rn 01/05 07:33 Order name: Protime (+inr); Complete Time: 08:23 rn 01/05 07:33 Order name: Ptt, Activated; Complete Time: 08:23 rn 01/05 07:26 Order name: CT Head C Spine; Complete Time: 08:23 rn 01/05 07:26 Order name: XRAY Elbow RIGHT 3 view; Complete Time: 09:06 rn 01/05 07:26 Order name: XRAY Humerus RIGHT; Complete Time: 09:06 rn 01/05 07:26 Order name: XRAY Pelvis; Complete Time: 09:06 rn 01/05 07:26 Order name: XRAY Hip RIGHT 2 view; Complete Time: 09:06 rn 01/05 07:41 Order name: XRAY Chest (1 view); Complete Time: 09:06 rn 01/05 07:26 Order name: Wound Care; Complete Time: 10:03 rn 01/05 07:26 Order name: Sling; Complete Time: 07:54 rn 01/05 07:33 Order name: IV Start; Complete Time: 07:54 rn Administered Medications: 07:54 Drug: NS 0.9% IV 500 ml IV at bolus once Route: IV; Rate: bolus; Site: left forearm; bp 11:10 Follow up: IV Status: Completed infusion; IV Intake: 500ml bp 07:54 Drug: Ondansetron IVP 4 mg IVP once; over 2 minutes Route: IVP; Site: left forearm; bp 10:21 Follow up: Response: No adverse reaction bp 07:54 Drug: morphine IVP or IV 2 mg IVP once over 4 mins Route: IVP; Infused Over: 4 mins; bp Site: left forearm; 10:21 Follow up: Response: No adverse reaction bp Disposition Summary: 01/06/24 10:19 Discharge Ordered Notes: Location: Home rn Problem: new rn Symptoms: have improved rn Condition: Stable rn Diagnosis - Displaced transverse fracture of shaft of humerus, right arm, initial encounter for rn closed fracture Followup: rn - With: Anderson Potter MD - When: 5 - 6 days - Reason: Recheck today's complaints, Re-evaluation by your physician Discharge Instructions: - Discharge Summary Sheet rn - Humerus Fracture Treated With Immobilization rn - How to Use a Sling rn - Humerus Fracture 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 EDMS EDMS 07:27 07:27 Elbow Right 3 View+RAD.RAD.BRZ ordered. EDMS EDMS 07:27 07:27 Humerus Right+RAD.RAD.BRZ ordered. EDMS EDMS 07:27 07:27 Pelvis+RAD.RAD.BRZ ordered. EDMS EDMS 07:27 07:27 Hip Right 2 View+RAD.RAD.BRZ ordered. EDUT EDMS 10:17 07:33 Constitutional: This is a well developed, well nourished patient who is awake, rn alert, and in no acute distress. Head/Face: Normocephalic, atraumatic. Neck: No midline cervical tenderness Chest/axilla: Normal chest wall appearance and motion. Nontender with no deformity Cardiovascular: Regular rate and rhythm. Respiratory: Pursed lip breathing, no retractions Abdomen/GI: Soft, nontender, nondistended Back: No spinal tenderness. MS/ Extremity: Pulses equal, no cyanosis. Right proximal humerus swelling with ecchymosis and contusion. No open wounds. Right elbow with skin tear, no active bleeding Neuro: Awake and alert, GCS 15, oriented to person, place, time, and situation. rn
[2024-01-06 11:54] VITALS: BP 124/65; TEMP 97.4; O2SAT 95
== END 2024-01-06 11:10 | disposition home or self-care (01) ==
LOC: ER 07:04
DX: S42.321A Displaced transverse fracture of shaft of humerus, right arm, initial encounter for closed fracture (principal); M25.551 Pain in right hip; E11.9 Type 2 diabetes mellitus without complications; I10 Essential (primary) hypertension; Z88.1 Allergy status to other antibiotic agents; Z72.0 Tobacco use
CPT/HCPCS: 96361; 85025; 80048; 36415; 85610; 85730; 70450; 72125; 71045; 72170; 73502; 73080; 73060; 96375; 96374; 99284; J2270; J2405; J7040

== ENCOUNTER 2024-01-11 19:07 | Inpatient (IN) | payer OTHER ==
[2024-01-11 19:37] LABS: Arterial Blood Carboxyhemoglob 1.7 % (0-1.5); Blood Gas Oxyhemoglobin 83.7 % (94-97); Blood O2 Saturation 86.7 % (92-98.5)
[2024-01-11 19:38] LABS: Blood Gas THB 12.9 g/dl (12-18)
[2024-01-11 20:50] LABS: PTT, Activated Partial Thromb 25.1 SECONDS (24.3-36.9)
[2024-01-11 20:51] LABS: Absolute Monocytes 0.6 K/uL (0.1-1.3); Absolute Neutrophil 15.3 K/uL (1.8-8.0); Basophils % 0.1 % (0-1.3); Hematocrit 36.9 % (39.6-49.0); Hemoglobin 12.3 g/dL (13.6-17.9); Lymphocytes % 5.9 % (15.3-44.8); MCH 32.7 pg (27.0-35.0); MCHC 33.2 g/dL (32.0-36.0); MCV 98.5 fL (80-100); Monocytes % 3.4 % (3.3-12.3); Neutrophils % 90.6 % (41.7-73.7); Nucleated Red Blood Cells % 0.1 % (0-0); PT Prothrombin Time 12.6 SECONDS (9.5-12.5); Platelets 344 thou/uL (152-406); Protime INR 1.15; RBC Red Blood Cell Count 3.75 M/uL (4.33-5.43); Red Cell Distribution Width 14.7 % (12.1-15.2)
[2024-01-11 20:55] LABS: Sqamous Epithelial None Seen /HPF (None Seen); Urine Bacteria <20 /HPF (<20); Urine Microscopic Reflex YN ORDER UMIC; Urine RBC >50 /HPF (None Seen)
[2024-01-11 20:56] LABS: Specific Gravity 1.015 (1.005-1.030); Urine Bilirubin NEGATIVE (Negative); Urine Blood 3+ (OVER) (Negative); Urine Clarity Extremely Turbid (Clear); Urine Color Yellow (Yellow); Urine Glucose NEGATIVE (Negative); Urine Ketones NEGATIVE (Negative); Urine Nitrite NEGATIVE (Negative); Urine Protein TRACE (Negative); Urine Urobilinogen Normal (Normal); Urine pH 5.5 (5.0-7.0)
[2024-01-11 21:03] LABS: Albumin 2.5 g/dL (3.4-5.0); Albumin/Globulin Ratio 0.6 (1.1-1.8); Anion Gap 10.7 mEq/L (5.0-15.0); Globulin 4.1 g/dL (2.3-3.5); Potassium 4.7 mEq/L (3.5-5.1); Protein, Total 6.6 g/dL (6.4-8.2)
[2024-01-11] MEDS ORDERED: CEFTRIAXONE 1000 MG/VIAL ONE (21:36)
[2024-01-11] MEDS ORDERED: LEVALBUTEROL 1.25 MG/3 ML NEB ONE (21:36)
[2024-01-11] MEDS ORDERED: NA CHLORIDE 0.9% 1,000 ML ONE ×2 (21:36→22:03)
[2024-01-11] MEDS ORDERED: MAGNESIUM SULFATE 1 gm IVPB 1 GM/100 ML BAG IV ONE (21:37)
--- NOTE | 2024-01-11 22:11 | RAD REPORT ---
EXAM DESCRIPTION: CT - Head Brain Wo Cont - 01/11/2024 9:56 pm CLINICAL HISTORY: Alteration of awareness/confusion COMPARISON: 2019 TECHNIQUE: Computed axial tomography of the head was obtained. IV contrast was not requested. All CT scans are performed using dose optimization technique as appropriate and may include automated exposure control or mA/KV adjustment according to patient size. FINDINGS: An intracranial bleed is not seen The ventricles are normal in caliber No extra-axial fluid collection is noted. Gliosis right temporal lobe unchanged. Mild cerebral atrophy Fluid within the sinuses/ mastoids is not seen. IMPRESSION: No acute intracranial abnormality is seen If patient's symptoms persist MRI of the brain would be recommended
--- NOTE | 2024-01-11 22:24 | RAD REPORT ---
EXAM DESCRIPTION: CT - Thorax Wo Con - 01/11/2024 9:56 pm CLINICAL HISTORY: sob COMPARISON: 2021 TECHNIQUE: Computed axial tomography of the chest was obtained. Contrast was not requested. All CT scans are performed using dose optimization technique as appropriate and may include automated exposure control or mA/KV adjustment according to patient size. FINDINGS: The evaluation of mediastinum, jordon and vessels is limited secondary to lack of IV contras t administration. Mild bilateral lower lobe opacities Small left pleural effusion Moderate COPD No mediastinal or hilar lymphadenopathy is seen. Small pericardial effusion Subacute right humeral impacted fracture 3.2 centimeter upper abdominal aortic aneurysm. Followup CT in 3 years recommended to assess stabilit y IMPRESSION: Mild bilateral lower lobe opacities may represent pneumonia Small pericardial effusion Small left pleural effusion
--- NOTE | 2024-01-11 22:25 | RAD REPORT ---
EXAM DESCRIPTION: [place] Single View01/11/2024 8:46 pm CLINICAL HISTORY: Chest pain COMPARISON: January 06, 2024 FINDINGS: Mild bilateral lower lobe opacities Lungs are moderately hyperaerated The heart is normal size. Impacted right humeral neck fracture is subacute IMPRESSION: Mild bilateral lower lobe opacities may represent pneumonia Small left pleural effusion
[2024-01-11] MEDS ORDERED: Levofloxacin500mg IV 500 MG/100 ML BAG IV ONE (22:29)
--- NOTE | 2024-01-11 22:38 | EDPHYS ---
Physician Documentation [facility] Name: Marcos Macdonald Age: 78 yrs Sex: Male : 1945 Arrival Date: 01/11/2024 Time: 19:07 Bed 4 Private MD: ED Physician Bhavin Milligan HPI: 01/10 19:26 This 78 yrs old Male presents to ER via Unassigned with complaints of sob. rn 19:26 The patient has shortness of breath at rest. Onset: The symptoms/episode began/occurred rn at an unknown time. Duration: The symptoms are continuous. The patient's shortness of breath is aggravated by nothing, is alleviated by nothing. Severity of symptoms: At their worst the symptoms were moderate in the emergency department the symptoms have improved. It is unknown whether or not the patient has had similar symptoms in the past. states patient seen here a few days ago, had right humeral fracture, sent home. Initially did okay but as time went on patient began to decompensate, generalized weakness, not able to get out of bed due to weakness, is at home trying to take care of him but unable to lift him. No fever. Reports shortness of breath that got worse today, unable to get up and uses nebulizer or take his medication. EMS reports hypoxic and placed patient on BiPAP with improvement of color and responsiveness.. Historical: - Allergies: 19:42 Azithromycin; lg3 - Home Meds: 19:42 Unable to obtain [Active]; lg3 - PMHx: 19:42 Diabetes - NIDDM; Hyperlipidemia; Hypertension; Myocardial infarction; lg3 - PSHx: 19:42 Unable to Obtain; lg3 - Immunization history:: Adult Immunizations unknown. - Infectious Disease History:: Denies. - Family history:: not pertinent. - Social history:: Smoking status: Patient denies any tobacco usage or history of. - Hospitalizations: : No recent hospitalization is reported. ROS: 19:26 Constitutional: Negative for fever, chills Cardiovascular: Negative for chest pain, rn palpitations, and edema, Respiratory: Positive for shortness of breath Abdomen/GI: Positive for anorexia, negative for abdominal pain MS/Extremity: Positive for persistent right upper extremity pain and bruising. Denies new injuries Neuro: Positive for generalized weakness and confusion Exam: 19:26 Constitutional: Thin male, on BiPAP, appears weak and frail Head/Face: Normocephalic, rn atraumatic. ENT: Dry mucous membranes Cardiovascular: Tachycardic, regular. Respiratory: Mild tachypnea, on BiPAP, faint expiratory wheezing Abdomen/GI: Scaphoid abdomen, nontender Skin: Warm, dry, dirty soles of feet Neuro: Somnolent but awakens to voice, answers questions, moves all 4 extremities, painful range of motion of the right upper extremity with ecchymosis. Vital Signs: 19:39 BP 130 / 72; Pulse 110; Resp 21 S; Pulse Ox 97% on BiPAP; FiO2 30 %; Weight 49.9 kg lg3 (R); Height 5 ft. 8 in. (R); 20:37 BP 141 / 83; Pulse 122; Resp 22 S; Temp 97.2(A); Pulse Ox 94% on BiPAP; lg3 21:00 BP 107 / 63; Pulse 114; Resp 20 S; Pulse Ox 97% on BiPAP; lg3 21:30 BP 106 / 62; Pulse 113; Resp 20 S; Pulse Ox 100% on BiPAP; lg3 22:00 BP 103 / 67; Pulse 112; Resp 19 S; Pulse Ox 96% on BiPAP; lg3 22:30 BP 109 / 64; Pulse 107; Resp 20; Pulse Ox 100% on BiPAP; km8 23:00 BP 119 / 67; Pulse 105; Resp 18; Pulse Ox 100% on BiPAP; km8 23:30 BP 114 / 66; Pulse 102; Resp 24; Pulse Ox 100% on BiPAP; km8 19:39 Body Mass Index 16.73 (49.90 kg, 172.72 cm) lg3 Procedures: 20:37 Central Line: the site was prepped with Betadine, in sterile fashion, a triple lumen rn catheter was inserted, in the right femoral vein, in 2 attempts. placement was verified, by blood return, the site was dressed with Tegaderm, using sterile technique, the patient tolerated the procedure, well, Ultrasound guidance used due to history of a possible arterial stent in the femoral region. Stent identified and avoided, successful venipuncture of the right femoral vein with good flow and flush. Tolerated well. MDM: 19:11 Patient medically screened. rn 20:37 ED course: Multiple nursing attempts at IV access including ultrasound, unsuccessful. rn Asked me to place central line for access.. 20:43 ED course: EMS gave Solu-Medrol 125 mg, as well as albuterol and Atrovent treatments. rn EMS also administered 0.3 epinephrine.. 22:36 Differential diagnosis: Anemia Bronchitis Chronic Obstructive Pulmonary Disease rn Myocardial Infarction pneumonia, Pneumothorax pulmonary edema, Pulmonary Embolism Sepsis. Data reviewed: vital signs, nurses notes, lab test result(s), EKG, radiologic studies, CT scan, plain films, and as a result, I will admit patient. Consideration of Admission/Observation Patient was admitted/placed on observation. Escalation of care including admission/observation considered. Management of patient was discussed with the following: Hospitalist: Discussed case with hospitalist, will admit. Independent interpretation of the following test(s) in the Emergency Department X-Ray: My interpretation is Chest x-ray images show bibasilar opacities per my interpretation. Care significantly affected by the following chronic conditions: Chronic Obstructive Pulmonary Disease. Counseling: I had a detailed discussion with the patient and/or guardian regarding the historical points, exam findings, and any diagnostic results supporting the discharge/admit diagnosis, lab results, radiology results, the need for further work-up and treatment in the hospital. Response to treatment: the patient's symptoms have mildly improved after treatment, and as a result, I will admit patient. ED course: Patient with bilateral opacities on chest x-ray, given hypoxemia and respiratory distress, likely pneumonia. Elevated lactic acid, 1.5 L bolus administered, no signs of septic shock at this time. Will admit to hospital service for pneumonia, acute renal failure, hypoxemia and requiring BiPAP, severe sepsis without septic shock.. 22:36 ED course: I personally spent 45 minutes engaged in work directly related to the rn individual patient's care. This does not include any time spent performing procedures. The patient has been deemed critically ill because of acute respiratory distress requiring BiPAP, severe sepsis without septic shock, inability of nursing to get access requiring central line placement, acute renal failure, consultation with hospitalist as well as multiple visits with family for HPI and further guidance.. 01/11 00:45 ED course: Repeat lactic acid improved, down to 2. Sepsis reevaluation completed. rn 01/10 19:11 Order name: Blood Culture Adult (2) rn 01/10 19:11 Order name: CBC with Diff; Complete Time: 23:46 rn 01/10 19:11 Order name: CMP; Complete Time: 21:07 rn 01/10 19:11 Order name: Lactate w/ 2H reflex if indic.; Complete Time: 21:25 rn 01/10 19:11 Order name: Protime (+inr); Complete Time: 21:07 rn 01/10 19:11 Order name: Ptt, Activated; Complete Time: 21:07 rn 01/10 19:11 Order name: Urinalysis w/ reflexes; Complete Time: 21:07 rn 01/10 19:29 Order name: ABG rv1 01/10 19:38 Order name: ABG Arterial Blood Gas; Complete Time: 20:41 EDMS 01/10 21:02 Order name: Manual Differential; Complete Time: 23:46 EDMS 01/10 22:56 Order name: Urinalysis w/ reflexes EDMS 01/10 22:56 Order name: CBC with Automated Diff EDMS 01/10 22:56 Order name: CBC with Automated Diff EDMS 01/10 22:56 Order name: Comprehensive Metabolic Panel EDMS 01/10 22:56 Order name: Comprehensive Metabolic Panel EDMS 01/11 00:40 Order name: Lactate Sepsis 2 HR Follow-up EDMS 01/10 19:11 Order name: Chest Single View XRAY; Complete Time: 22:26 rn 01/10 19:11 Order name: CT Head Brain wo Cont; Complete Time: 22:26 rn 01/10 19:38 Order name: ARTERIAL BLOOD GAS EDMS 01/10 21:37 Order name: Thorax Wo Con; Complete Time: 22:26 EDMS 01/10 22:56 Order name: CONS Physician Consult EDMS 01/10 19:11 Order name: Accucheck; Complete Time: 20:35 rn 01/10 19:11 Order name: Cardiac monitoring; Complete Time: 19:37 rn 01/10 19:11 Order name: EKG - Nurse/Tech; Complete Time: 19:37 rn 01/10 19:11 Order name: IV Saline Lock - Large Bore; Complete Time: 20:35 rn 01/10 19:11 Order name: Labs collected and sent; Complete Time: 20:35 rn 01/10 19:11 Order name: O2 Per Protocol; Complete Time: 19:37 rn 01/10 19:11 Order name: O2 Sat Monitoring; Complete Time: 19:37 rn 01/10 19:11 Order name: Vital Signs; Complete Time: 19:53 rn 01/10 19:59 Order name: León; Complete Time: 20:35 vc1 Administered Medications: 01/10 21:31 CANCELLED (Duplicate Order): ns 0.9% 500 ml IV at bolus once rn 21:42 Drug: Levalbuterol Inhalation 1.25 mg Inhalation once Route: Inhalation; lg3 22:45 Follow up: Response: No adverse reaction lg3 21:45 Drug: Rocephin IV 1 grams IV at calculated rate once; Given slow IV push per pharmacy lg3 instructions Route: IV; Rate: calculated rate; Site: right femoral; 22:45 Follow up: Response: No adverse reaction; IV Status: Completed infusion; IV Intake: [id number] 21:45 Drug: Magnesium Sulfate IVPB 1 grams IVPB once over 1 hrs Route: IVPB; Infused Over: 1 lg3 hrs; Site: right femoral; 22:45 Follow up: Response: No adverse reaction; IV Status: Completed infusion; IV Intake: lg3 100ml 21:45 Drug: NS 0.9% IV 1000 ml IV at 1 bolus Per protocol; 1000 mL bolus Route: IV; Rate: 1 lg3 bolus; Site: right femoral; 22:44 Follow up: Response: No adverse reaction; IV Status: Completed infusion; IV Intake: lg3 1000ml 22:34 Drug: NS 0.9% IV 1000 ml IV at 1000 ml once Route: IV; Rate: 1000 ml; Site: right lg3 femoral; 23:43 Follow up: Response: No adverse reaction; IV Status: Completed infusion; IV Intake: lg3 1000ml 22:35 Drug: levofloxacin IVPB 500 mg 100 ml IVPB once over 60 mins Volume: 100 ml; Route: lg3 IVPB; Infused Over: 60 mins; Site: right femoral; 23:43 Follow up: Response: No adverse reaction; IV Status: Completed infusion; IV Intake: lg3 100ml Disposition: 22:36 Critical Care:. 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 Total time: 45 minutes Signatures: Dispatcher [employer] EDMS Bhavin Milligan MD MD rn Able, Lacie RN RN lg3 Jamia Pepper RN RN vc1 Umang, Tran rv1 Corrections: (The following items were deleted from the chart) 19:12 19:12 BLOOD CULTURE*+BA.LAB.BRZ ordered. EDMS EDMS 19:12 19:12 CBC+H.LAB.BRZ ordered. EDMS EDMS 19:12 19:12 COMPREHENSIVE METABOLIC PANEL+C.LAB.BRZ ordered. EDMS EDMS 19:12 19:12 LACTATE+C.LAB.BRZ ordered. EDMS EDMS 19:12 19:12 PROTIME (+INR)+COAG.LAB.BRZ ordered. EDMS EDMS 19:12 19:12 PTT, ACTIVATED+COAG.LAB.BRZ ordered. EDMS EDMS 19:12 19:12 Urinalysis+U.LAB.BRZ ordered. EDMS EDMS 19:12 19:12 Chest Single View+RAD.RAD.BRZ ordered. EDMS EDMS 19:12 19:12 Head Brain Wo Cont+CT.RAD.BRZ ordered. EDMS EDMS 19:12 19:12 BiPap ([employer] Only)+RC.RAD.BRZ ordered. EDMS EDMS 19:19 19:19 Chest For PE Angio+CT.RAD.BRZ ordered. EDMS EDMS 21:31 21:11 NS 0.9% IV 500 ml IV at bolus once ordered. rn rn 23: 22:38 Intensive Care Unit rn rn 23:01 22:38 rn rn 23:51 23:01 rn rv1
--- NOTE | 2024-01-11 22:38 | ER ---
Nurse's Notes [facility] Name: Marcos Macdonald Age: 78 yrs Sex: Male : 1945 Arrival Date: 01/11/2024 Time: 19:07 Bed 4 Private MD: Diagnosis: Pneumonia, unspecified organism;Acute kidney failure, unspecified;Hypoxemia;Severe sepsis without septic shock Presentation: 01/10 19:39 Chief complaint: EMS states: called out for lift assist. on arrival, pt pale, lg3 diaphoretic with audible wheezing. pt complaints of SOB. 72% RA. placed on bipap. O2 recovered to 94%. 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 Coronavirus screen: At this time, unable to obtain information related to travel outside the [place] Ebola Screen: No symptoms or risks identified at this time. Initial Sepsis Screen: Does the patient meet any 2 criteria? RR > 20 per min. HR > 90 bpm. Yes Does the patient have a suspected source of infection? No. Patient's initial sepsis screen is negative. Risk Assessment: Do you want to hurt yourself or someone else? Patient reports no desire to harm self or others. Onset of symptoms is unknown. 19:39 Method Of Arrival: EMS: [facility] lg3 19:39 Acuity: KERRY 1 ss Triage Assessment: 19:42 General: Appears distressed, uncomfortable, slender, unkempt, Behavior is appropriate lg3 for age, Smells of urine. Pain: Denies pain. EENT: No deficits noted. Neuro: [place] Agitation-Sedation Scale (RASS): 0 - Alert and Calm Level of Consciousness is awake, lethargic, Oriented to person, place, situation. Cardiovascular: Capillary refill < 3 seconds Clubbing of nail beds is absent JVD is absent Rhythm is sinus tachycardia. Respiratory: Airway is patent Respiratory effort is shallow, weak, Respiratory pattern is tachypnea Breath sounds with rhonchi Breath sounds with wheezes. GI: No deficits noted. No signs and/or symptoms were reported involving the gastrointestinal system. Abdomen is flat, non-distended. : No deficits noted. No signs and/or symptoms were reported regarding the genitourinary system. Derm: Skin is intact, is fragile, is thin, Skin is dry, Skin is pale, Skin temperature is cool Bruising that is dark purple, on right arm. Musculoskeletal: Circulation, motion, and sensation intact. Range of motion: intact in all extremities. Historical: - Allergies: 19:42 Azithromycin; lg3 - Home Meds: 19:42 Unable to obtain [Active]; lg3 - PMHx: 19:42 Diabetes - NIDDM; Hyperlipidemia; Hypertension; Myocardial infarction; lg3 - PSHx: 19:42 Unable to Obtain; lg3 - Immunization history:: Adult Immunizations unknown. - Infectious Disease History:: Denies. - Family history:: not pertinent. - Social history:: Smoking status: Patient denies any tobacco usage or history of. - Hospitalizations: : No recent hospitalization is reported. Screenin:51 [facility] ED Fall Risk Assessment (Adult) History of falling in the last 3 months, lg3 including since admission Yes- fall prone (multiple falls) (3 pts) Confusion or Disorientation Yes (5 pts) Intoxicated or Sedated No (0 pts) Impaired Gait Yes (1 pt) Mobility Assist Device Used Yes (1 pt) Altered Elimination Yes (1 pt) Score/Fall Risk Level 3 or more points = High Risk Oriented to surroundings, Maintained a safe environment, Educated pt \T\ family on fall prevention, incl call for assistance when getting out of bed, Assessed \T\ reinforced patient's understanding of fall precautions, Provided non-skid footwear, Hourly rounding (assess needs \T\ fall precautionary measures) done. Abuse screen: Denies threats or abuse. Denies injuries from another. Nutritional screening: No deficits noted. Tuberculosis screening: No symptoms or risk factors identified. Assessment: 19:50 General: see triage assessment. lg3 19:53 General: notified provider of no peripheral access . lg3 21:53 Reassessment: Patient appears in no apparent distress at this time. No changes from lg3 previously documented assessment. Patient and/or family updated on plan of care and expected duration. Pain level reassessed. Patient is alert, oriented x 3, equal unlabored respirations, skin warm/dry/pink. 05/06 00:56 Reassessment: Patient appears in no apparent distress at this time. No changes from lg3 previously documented assessment. Patient and/or family updated on plan of care and expected duration. Pain level reassessed. Patient is alert, oriented x 3, equal unlabored respirations, skin warm/dry/pink. Patient states symptoms have improved. Vital Signs: 05 19:39 BP 130 / 72; Pulse 110; Resp 21 S; Pulse Ox 97% on BiPAP; FiO2 30 %; Weight 49.9 kg lg3 (R); Height 5 ft. 8 in. (R); 20:37 BP 141 / 83; Pulse 122; Resp 22 S; Temp 97.2(A); Pulse Ox 94% on BiPAP; lg3 21:00 BP 107 / 63; Pulse 114; Resp 20 S; Pulse Ox 97% on BiPAP; lg3 21:30 BP 106 / 62; Pulse 113; Resp 20 S; Pulse Ox 100% on BiPAP; lg3 22:00 BP 103 / 67; Pulse 112; Resp 19 S; Pulse Ox 96% on BiPAP; lg3 22:30 BP 109 / 64; Pulse 107; Resp 20; Pulse Ox 100% on BiPAP; km8 23:00 BP 119 / 67; Pulse 105; Resp 18; Pulse Ox 100% on BiPAP; km8 23:30 BP 114 / 66; Pulse 102; Resp 24; Pulse Ox 100% on BiPAP; km8 19:39 Body Mass Index 16.73 (49.90 kg, 172.72 cm) lg3 ED Course: 19:10 Patient arrived in ED. ld1 19:10 Bhavin Milligan MD is Attending Physician. rn 19:39 Christin Bolden RN is Primary Nurse. lg3 19:42 Triage completed. lg3 19:42 Arm band placed on left wrist. lg3 19:51 Patient has correct armband on for positive identification. Placed in gown. Bed in low lg3 position. Call light in reach. Side rails up X 1. Client placed on continuous cardiac and pulse oximetry monitoring. NIBP monitoring applied. nuclear monitoring technician on. Door closed. Noise minimized. Warm blanket given. Family accompanied patient. 19:51 Missed attempt(s): 22 gauge in left antecubital area. Bleeding controlled, band aid lg3 applied, catheter tip intact. 19:51 Missed attempt(s): 22 gauge in left forearm. Bleeding controlled, band aid applied, lg3 catheter tip intact. 19:52 Missed attempt(s): 22 gauge in left wrist. Bleeding controlled, band aid applied, km8 catheter tip intact. 19:52 Missed attempt(s): 22 gauge in left upper arm. km8 19:53 ARTERIAL BLOOD GAS Sent. lg3 20:34 Assisted provider with central line placement. Set up central line tray. Triple lumen lg3 line placed in right femoral. Line placed by Bhavin Milligan MD Placement verified by CXR, blood return, Blood was collected. Patient tolerated well. Before procedure, did Practitioner(s) obtain informed consent? Yes. Patient \T\ family education about procedure, CLABSI prevention and S/S of infection? Yes. Time-out/Briefing performed prior to start of procedure? Yes. Was handwashing/sanitizing done immediately prior to procedure? Yes. Was patient positioned to in a way to prevent air embolism? Yes. Was procedure site sterilized? Yes, with chlorhexidine. Was the site allowed to dry? Yes. Was local anesthetic and/or sedation utilized? Yes. During the procedure, did the Practitioner(s) maintain a sterile field? Yes. Were unused ports clamped during insertion? Yes. Was a 2nd qualified MD obtained after 3 unsuccessful insertion attempts? No. Was blood aspirated from each lumen? Yes. After the procedure, did the Practitioner(s) clean the site and apply a sterile dressing? Yes. 20:34 León cath inserted, using sterile technique, 16 Fr., by ED staff, balloon inflated, to lg3 gravity drainage, urine specimen collected. returned vasu urine. Patient tolerated well. 20:48 Chest Single View XRAY In Process Unspecified. EDMS 21:57 CT Head Brain wo Cont In Process Unspecified. EDMS 21:58 Thorax Wo Con In Process Unspecified. EDMS 22:31 Kelly, . rv1 22:31 Freida, daughter [phone]. rv1 22:37 Rboe Cho MD is Hospitalizing Provider. rn 01/11 00:01 Provided Education on: admission process. km8 00:01 Patient admitted, IV remains in place. km8 Administered Medications: 01/10 21:31 CANCELLED (Duplicate Order): ns 0.9% 500 ml IV at bolus once rn 21:42 Drug: Levalbuterol Inhalation 1.25 mg Inhalation once Route: Inhalation; lg3 22:45 Follow up: Response: No adverse reaction lg3 21:45 Drug: Rocephin IV 1 grams IV at calculated rate once; Given slow IV push per pharmacy lg3 instructions Route: IV; Rate: calculated rate; Site: right femoral; 22:45 Follow up: Response: No adverse reaction; IV Status: Completed infusion; IV Intake: [id number] 21:45 Drug: Magnesium Sulfate IVPB 1 grams IVPB once over 1 hrs Route: IVPB; Infused Over: 1 lg3 hrs; Site: right femoral; 22:45 Follow up: Response: No adverse reaction; IV Status: Completed infusion; IV Intake: lg3 100ml 21:45 Drug: NS 0.9% IV 1000 ml IV at 1 bolus Per protocol; 1000 mL bolus Route: IV; Rate: 1 lg3 bolus; Site: right femoral; 22:44 Follow up: Response: No adverse reaction; IV Status: Completed infusion; IV Intake: lg3 1000ml 22:34 Drug: NS 0.9% IV 1000 ml IV at 1000 ml once Route: IV; Rate: 1000 ml; Site: right lg3 femoral; 23:43 Follow up: Response: No adverse reaction; IV Status: Completed infusion; IV Intake: lg3 1000ml 22:35 Drug: levofloxacin IVPB 500 mg 100 ml IVPB once over 60 mins Volume: 100 ml; Route: lg3 IVPB; Infused Over: 60 mins; Site: right femoral; 23:43 Follow up: Response: No adverse reaction; IV Status: Completed infusion; IV Intake: lg3 100ml Medication: 01/11 00:01 VIS not applicable for this client. km8 Intake: 01/10 22:44 IV: 1000ml; Total: 1000ml. lg3 22:45 IV: 100ml; Total: 1100ml. lg3 22:45 IV: 10ml; Total: 1110ml. lg3 23:43 IV: 100ml; Total: 1210ml. lg3 23:43 IV: 1000ml; Total: 2210ml. lg3 Output: 20:34 Urine: 700ml (León); Total: 700ml. lg3 01/11 00:06 Urine: 1500ml (León); Total: 2200ml. km8 Outcome: 01/10 22:38 Decision to Hospitalize by Provider. rn 01/11 01:34 Admitted to Med/surg accompanied by nurse, via stretcher, room 224, lg3 Condition: stable Instructed on the need for admit, 01:35 Patient left the ED. lg3 Signatures: Dispatcher [employer] EDMS Bhavin Milligan MD MD rn Blanchard, Shelby, RN RN Christin Ordonez RN RN lg3 Roxane Hancock RN RN ld1 Heck, Tran rv1 Liz Phoenix RN RN km8 Corrections: (The following items were deleted from the chart) 01/10 19:46 19:39 Acuity: KERRY 4 lg3 ss 20:41 20:37 BP 141 / 83; Pulse 122bpm; Resp 22bpm; Spontaneous; Pulse Ox 94% BiPAP; lg3 lg3
[2024-01-11] MEDS ORDERED: ONDANSETRON 4 MG/2 ML VIAL IV PRN (22:49)
[2024-01-11] MEDS ORDERED: ACETAMINOPHEN 325 MG TABLET PO PRN (22:49)
[2024-01-11] MEDS ORDERED: ALBUTEROL 2.5 MG/3 ML NEB SOL NEB PRN (22:49)
--- NOTE | 2024-01-11 22:57 | P.HP ---
Certification for Inpatient Patient admitted to: Inpatient With expected LOS: >2 Midnights Practitioner: I am a practitioner with admitting privileges, knowledge of patient current condition, hospital course, and medical plan of care. Services: Services provided to patient in accordance with Admission requirements found in Title 42 Section 412.3 of the Code of Federal Regulations Patient History Date of Service: 01/11/24 Reason for admission: SOB History of Present Illness: 78 yrs old Male with past medical history of diabetes, hypertension, hyperlipidemia, CAD who came to ER with shortness of breath. Patient is on BiPAP at the time of interview hence could not offer much history hence most of the history is obtained from the chart review and also talking to the ER marquez horton. states patient seen here a few days ago, had right humeral fracture, sent home. Initially did okay but as time went on patient began to decompensate, generalized weakness, not able to get out of bed due to weakness, .No fever. Reports shortness of breath that got worse today, unable to get up and uses nebulizer or take his medication. EMS was called and he was found to be hypoxic and placed patient on BiPAP Patient was assessed in the ER and was continues to be on BiPAP Patient is being admitted for further management Allergies azithromycin [From Zithromax] Allergy (Verified 11/11/16 10:53) Unknown No Known Allergies Allergy (Uncoded 06/04/17 14:40) Unknown Home medications list reviewed: Yes Home Medications: Aspirin 81 mg PO DAILY 10/03/15 Atorvastatin Calcium [Lipitor] 80 mg PO DAILY 10/03/15 Budesonide/Formoterol Fumarate [Symbicort 160-4.5 Mcg Inhaler] 2 puff IH Q4HR PRN 10/03/15 Clopidogrel Bisulfate [Plavix] 75 mg PO DAILY 10/03/15 Doxycycline Hyclate 50 mg PO DAILY 10/03/15 Finasteride [Proscar] 5 mg PO DAILY 10/03/15 Losartan Potassium [Cozaar] 12.5 mg PO DAILY 10/03/15 Metformin HCl [Metformin HCl ER] 1,000 mg PO BID 10/03/15 Tamsulosin [Flomax] 0.4 mg PO DAILY 10/03/15 Temazepam [Restoril] 30 mg PO BEDTIME 10/03/15 glipiZIDE [Glucotrol] 5 mg PO DAILY 10/03/15 - Past Medical/Surgical History Diabetic: Yes Past Medical History: Reviewed- Non-Contributory -: DM -: COPD -: Hyperlipidemia -: HTN -: CAD, Recent MD with stent -: Tobacco abuse Past Surgical History: Reviewed- Non-Contributory -: cardiac stent placement Psychosocial/ Personal History: Lives at home. - Social History Smoking Status: Unknown if ever smoked Alcohol use: No CD- Drugs: No Caffeine use: Yes Review of Systems is unable to be obtained Physical Examination - Vital Signs Temperature: 98.4 F Blood Pressure: 98/62 Pulse: 120 Respirations: 19 Pulse Ox (%): 98 - Physical Exam General: Alert, Moderate distress, Confused HEENT: Atraumatic, Normocephalic Neck: Supple, No LAD Respiratory: Diminished, Crackles/rales, Expiratory wheezes Cardiovascular: Regular rate/rhythm, Normal S1 S2, No rubs Capillary refill: <2 Seconds Gastrointestinal: Soft and benign, W/out hepatosplenomegaly Musculoskeletal: No clubbing, No swelling Integumentary: No rashes, No breakdown Neurological: Abnormal speech, Abnormal strength Lymphatics: No axilla or inguinal lymphadenopathy - Studies Laboratory Data (last 24 hrs) 01/11/24 01/11/24 01/11/24 20:30 20:30 20:30 WBC 16.80 H Hgb 12.3 L Hct 36.9 L Plt Count 344 PT 12.6 H INR 1.15 APTT 25.1 Sodium 141 Potassium 4.7 BUN 86 H Creatinine 2.41 H Glucose 183 H Total Bilirubin 1.0 AST 19 ALT 26 Alkaline Phosphatase 71 Assessment and Plan - Problems (Diagnosis) (1) COPD (chronic obstructive pulmonary disease) with acute bronchitis Current Visit: No Status: Chronic Plan: COPD exacerbation Monitor closely on telemetry Started on bronchodilators Oxygen supplementation Steroids added ABG findings noted Chest x-ray findings noted Pulmonology consult if not better in the a.m. Acute hypoxic respiratory failure On BiPAP Will try to wean down oxygen requirement Monitor closely on telemetry Acute encephalopathy possibly metabolic Monitor neuro vital signs CT head was negative for any acute changes Bilateral pneumonia IV antibiotic Will obtain cultures Lactic acidosis noted IV hydration Will change antibiotic as per sensitivity Diabetes Insulin sliding scale Accu-Chek q. ACH S GI/DVT prophylaxis Advanced directive full code - Advance Directives Does patient have a Living Will: No Does patient have a Durable POA for Healthcare: No - Code Status/Comfort Care Code Status: Full Code Time Spent Managing Pts Care (In Minutes): 58
[2024-01-11] MEDS: NA CHLORIDE 0.9% 1,000 ML IV SCH (23:00)
[2024-01-11] MEDS: AZITHROMYCIN IV 500 MG in NA CHLORIDE 0.9% 250 ML IVPB SCH (23:00)
[2024-01-11 23:07] LABS: Band Neutrophils 6 % (0-1); Blood Morphology Comment NOTED (NOT SEEN); Burr Cells 3+; Differential Total Cells Count 100; Lymphocytes 5 % (15-42); Monocytes 2 % (0-10); Platelet Estimate ADEQ; Reactive Lymphocytes 1 %; Segmented Neutrophils 86 % (40-80)
[2024-01-12] MEDS: Levofloxacin 750mg IV 750 MG/150 ML BAG IV ONE (01:00)
[2024-01-12 02:42] VITALS: BMI 16.9
[2024-01-12] MEDS: IPRATROPIUM BROM 0.5MG/2.5ML NEB SCH (03:18)
[2024-01-12 03:32] LABS: Absolute Lymphocytes (CBC) 0.2 K/uL (0.7-4.9); Absolute Monocytes 0.1 K/uL (0.1-1.3); Absolute Neutrophil 10.7 K/uL (1.8-8.0); Basophils % 0.2 % (0-1.3); Hematocrit 31.8 % (39.6-49.0); Hemoglobin 10.6 g/dL (13.6-17.9); Lymphocytes % 2.1 % (15.3-44.8); MCHC 33.5 g/dL (32.0-36.0); MCV 98.6 fL (80-100); MPV 7.6 fL (7.6-11.3); Platelets 282 thou/uL (152-406); RBC Red Blood Cell Count 3.23 M/uL (4.33-5.43); Red Cell Distribution Width 14.8 % (12.1-15.2)
[2024-01-12 03:33] LABS: Neutrophils % 96.7 % (41.7-73.7)
[2024-01-12 03:46] LABS: Albumin 2.1 g/dL (3.4-5.0); Albumin/Globulin Ratio 0.6 (1.1-1.8); Anion Gap 9.7 mEq/L (5.0-15.0); Bilirubin Total 0.6 mg/dL (0.2-1.0); Globulin 3.6 g/dL (2.3-3.5); Potassium 4.7 mEq/L (3.5-5.1); Protein, Total 5.7 g/dL (6.4-8.2)
[2024-01-12 06:17] LABS: Phosphorus 3.5 mg/dL (2.5-4.9)
[2024-01-12] MEDS ORDERED: ENOXAPARIN 30 MG/0.3 ML SQ SCH (09:00)
[2024-01-12] MEDS: INSULIN REGULAR (HUMAN) 100 UNIT/ML ONE ×2 (09:36→12:25)
[2024-01-12] MEDS: INSULIN REGULAR (HUMAN) 100 UNIT/ML SQ SCH ×2 (09:57→16:30)
--- NOTE | 2024-01-12 12:09 | P.CNS ---
Date of Consult: 01/12/24 Reason for Consult: Resp failure Chief Complaint: SOB History of Present Illness: Patient is 78 years of age with a history of terminal COPD and dementia poor baseline functioning apparently he fell and had injury to the right shoulder difficult to take care of patient ended up in the hospital here currently on BiPAP unresponsive cussed with the was present at the bedside his condition is progressively deteriorated and was hypoxic renal failure Allergies azithromycin [From Zithromax] Allergy (Verified 11/11/16 10:53) Unknown No Known Allergies Allergy (Uncoded 06/04/17 14:40) Unknown - Past Medical/Surgical History Diabetic: Yes -: DM -: COPD -: Hyperlipidemia -: HTN -: CAD, Recent [place] with stent -: Tobacco abuse -: cardiac stent placement Psychosocial/ Personal History: Lives at home. - Social History Smoking Status: Current every day smoker Alcohol use: No CD- Drugs: No Caffeine use: Yes Place of Residence: Home Review of Systems is unable to be obtained Physical Examination Temp Pulse Resp BP Pulse Ox 98.8 F 95 H 13 115/57 L 96 01/12/24 08:00 01/12/24 08:00 01/12/24 08:00 01/12/24 08:00 01/12/24 08:00 General: Alert, Unresponsive Respiratory: Clear to auscultation bilaterally, Diminished Cardiovascular: No edema, Regular rate/rhythm, Normal S1 S2 Gastrointestinal: Normal bowel sounds, Soft and benign Musculoskeletal: Other (Right arm is in sling appears to be very bruised) Integumentary: No rashes, No breakdown Laboratory Data (last 24 hrs) 01/11/24 01/11/24 01/11/24 20:30 20:30 20:30 WBC 16.80 H Hgb 12.3 L Hct 36.9 L Plt Count 344 PT 12.6 H INR 1.15 APTT 25.1 Sodium 141 Potassium 4.7 BUN 86 H Creatinine 2.41 H Glucose 183 H Total Bilirubin 1.0 AST 19 ALT 26 Alkaline Phosphatase 71 - Problems (1) Respiratory failure Current Visit: Yes Status: Ruled-out Plan: Patient is 78 years of age with a fall history of terminal COPD continues to smoke oxygenation vital signs are satisfactory over to nasal cannula his renal function is improving most likely prerenal discussed with the regarding hospice evaluation is experiencing progressive decline in his mental and physical status patient has a small pericardial effusion small left-sided pleural effusion Qualifiers: Chronicity: acute on chronic (2) Shoulder fracture, right Current Visit: Yes Status: Acute Plan: A comminuted impacted markedly displaced fracture right humeral head and neck Qualifiers: Encounter type: subsequent encounter
[2024-01-12] MEDS ORDERED: D50W 25 GM/50 ML SYRINGE IV PRN (13:03)
[2024-01-12] MEDS ORDERED: GLUCAGON 1 MG/VIAL IM PRN (13:03)
--- NOTE | 2024-01-12 14:39 | EKG ---
Test Date: 2024-01-11 Test Time: 19:28:43 Impression Printer: ARSLAN MEASUREMENT RESULTS: Intervals: Rate: 112 LA: 142 QRSD: 82 QT: 314 QTc: 428 [place]: P: 74 LA: 142 QRS: 81 T: 68 INTERPRETIVE STATEMENTS: Sinus tachycardia Otherwise normal ECG Compared to ECG 02/24/2021 13:25:53 Atrial premature complex(es) no longer present Electronically Signed On 01-12-24 14:37:30 CDT by Codey Arias
[2024-01-12] MEDS ORDERED: ALBUTEROL 2.5 MG/3 ML NEB SOL NEB PRN (14:42)
--- NOTE | 2024-01-12 17:44 | P.PN ---
Subjective Date of Service: 01/12/24 Chief Complaint: SOB Patient has been sleeping all day. He has been stable on 4 L of oxygen by nasal cannula. León catheter is in place draining bloodstained urine. No recorded fever. He is currently n.p.o. given aspiration pneumonia. Physical Examination - Vital Signs Temperature: 98.0 F Blood Pressure: 116/64 Pulse: 86 Respirations: 13 Pulse Ox (%): 96 - Studies Laboratory Data (last 24 hrs) 01/11/24 01/11/24 01/11/24 20:30 20:30 20:30 WBC 16.80 H Hgb 12.3 L Hct 36.9 L Plt Count 344 PT 12.6 H INR 1.15 APTT 25.1 Sodium 141 Potassium 4.7 BUN 86 H Creatinine 2.41 H Glucose 183 H Total Bilirubin 1.0 AST 19 ALT 26 Alkaline Phosphatase 71 Assessment And Plan - Plan Physical Exam General: Somnolent, resting comfortably, not in acute distress. Cachectic. HEENT: Oxygen by nasal cannula Neck: Supple, No LAD Respiratory: Diminished, Crackles/rales, Expiratory wheezes Cardiovascular: Regular rate/rhythm, Normal S1 S2, No rubs Gastrointestinal: Soft and benign, W/out hepatosplenomegaly Musculoskeletal: No clubbing, No swelling, stiff bilateral knees. Integumentary: No rashes, No breakdown Neurological: Somnolent, no focal motor deficit, grossly weak. Assessment and Plan Diagnosis COPD with acute bronchitis Acute respiratory failure with hypoxia Acute metabolic encephalopathy Bilateral pneumonia Severe protein calorie malnutrition Diabetes mellitus type 2 BPH Hematuria Plan: COPD exacerbation Acute respiratory failure with hypoxia Bilateral pneumonia Continue bronchodilators, steroids IV antibiotics Status post BiPAP, now tolerating oxygen by nasal cannula. Titrate oxygen Pulmonary Dr. Roach input appreciated. Dr. Roach discussed hospice with the spouse and she is receptive, however she would like to wait and see how patient responds to treatment for the next few days before committing to hospice. Patient is currently n.p.o. for suspected aspiration pneumonia. Follow cultures. Acute metabolic encephalopathy Alzheimer's dementia CT head was negative for any acute changes Neurochecks Diabetes mellitus type II Patient is n.p.o. Insulin sliding scale Accu-Chek every 6 hours Hematuria BPH Hematuria is clearing Maintain León catheter. Monitor urine output. GI/DVT prophylaxis: SCD Advanced directive: full code
[2024-01-12] MEDS ORDERED: CEFTRIAXONE 1,000 MG in NA CHLORIDE 0.9% 50 ML IVPB SCH ×2 (21:00→22:55)
[2024-01-12] MEDS: GLUCERNA SHAKE 237 ML CAN PO SCH (21:00)
[2024-01-12] MEDS: ARFORMOTEROL TARTRATE 15 MCG/2 ML VIAL.NEB NEB SCH (21:25)
[2024-01-13] MEDS: INSULIN REGULAR (HUMAN) 100 UNIT/ML SQ SCH
--- NOTE | 2024-01-13 07:30 | P.PN ---
Date of Service: 01/13/24 Subjective: tolerated bedside swallow study without issues today mentation improving. More awake / alert today. Able to respond to questions more appropriately. ~baseline hematuria clearing up. More vasu / Less red in color per at bedside concerned with dementia, low PO intake, fall risk, and now humerus fracture, that patient will not remember limitations and fall afebrile ROS: 10 point ROS as noted above, otherwise negative Physical Exam: GEN: Alert, oriented x2 ( is 2022), NAD, dementia HEENT: Normal conjunctiva, sclera anicteric CV: Regular rate and rhythm, no edema Pulm: Nonlabored respirations on 3L NC, diminished at bases b/l, crackles/rales, expiratory wheeze ABD: Soft, nontender, nondistended Neuro: Normal speech, normal affect Salazar in place vitals reviewed Problem List: Acute hypoxic respiratory failure secondary to acute COPD exacerbation / bilateral pneumonia COPD with acute bronchitis Acute metabolic encephalopathy Alzheimer's dementia ELIOT, improved Subacute right humeral impacted fracture Severe protein calorie malnutrition DM2 BPH Hematuria Acute hypoxic respiratory failure secondary to acute COPD exacerbation / bilateral pneumonia COPD with acute bronchitis CT chest (01/10): mild bilateral lower lobe opacities - possible pneumonia, small pericardial effusion, small left pleural effusion. moderate COPD, subacute right humeral impacted fracture s/p BiPAP for few after admission, now tolerating 3L NC. wean oxygen as tolerated. Does not have oxygen setup at home. Follow blood cultures (01/10): NGTD given rocephin / levaquin in ED Continue empiric IV levaquin afebrile, leukocytosis 11.1 -> 13.7 (01/12) Continue bronchodilators, nebs Dr. Roach, pulm consulted continue IV fluids Previously NPO given concern for aspiration pneumonia. More awake/alert today. Tolerated bedside swallow study this morning without issues Full liquid diet for now Acute metabolic encephalopathy Alzheimer's dementia CT head negative for any acute findings Discussed hospice with the spouse and she is receptive, however she would like to wait and see how patient responds to treatment concerned he will not recall his limitations and fall again. He got significantly weaker and with ELIOT within the 1 week of fracture discussed SNF vs hospice; depending on what route she thinks he would want to pursue. more awake/alert this morning. Oriented x2 ( is 2022) continue neurochecks ELIOT, improved likely secondary to dehydration / decreased PO intake Creatinine improved with IV fluids continue to monitor renal function Subacute right humeral impacted fracture Patient had a recent fall ~1 week ago. Imaging from ER visit 01/05 xray humerus (01/05): comminuted impacted markedly displaced fracture right humeral head and neck xray pelvis/hip (01/05): incidentally noted 14 mm nonspecific sclerotic lesion proximal right femur. osteoporosis. f/u x-ray imaging recommended in 3 months PRN analgesics Severe protein calorie malnutrition continue supplemental nutrition with glucerna shakes BID DM2 accu-checks, SSI BPH Hematuria hematuria clearing up. More vasu/maroon in color Maintain salazar. Monitor urine output VTE: SCD Code: Full Dispo: SNF vs hospice vs home Pending breathing improves, wean oxygen PT eval
[2024-01-13 08:22] LABS: Absolute Basophils 0.1 K/uL (0-0.5); Absolute Lymphocytes (CBC) 1.4 K/uL (0.7-4.9); Absolute Monocytes 0.8 K/uL (0.1-1.3); Absolute Neutrophil 11.4 K/uL (1.8-8.0); Basophils % 0.4 % (0-1.3); Hematocrit 34.9 % (39.6-49.0); Hemoglobin 11.3 g/dL (13.6-17.9); Lymphocytes % 10.1 % (15.3-44.8); MCHC 32.4 g/dL (32.0-36.0); MCV 98.6 fL (80-100); MPV 7.5 fL (7.6-11.3); Monocytes % 6.1 % (3.3-12.3); Neutrophils % 83.4 % (41.7-73.7); Platelets 291 thou/uL (152-406); RBC Red Blood Cell Count 3.54 M/uL (4.33-5.43); Red Cell Distribution Width 14.7 % (12.1-15.2)
[2024-01-13 08:32] LABS: Anion Gap 2.7 mEq/L (5.0-15.0); Magnesium 1.8 mg/dL (1.6-2.4); Potassium 3.7 mEq/L (3.5-5.1)
--- NOTE | 2024-01-13 12:24 | P.PN ---
Subjective Date of Service: 01/13/24 Chief Complaint: COPD Subjective: Improving (Patient is more alert responsive cooperating asking for some water pain is under control) Review of Systems Respiratory: Shortness of Breath Physical Examination - Vital Signs Temperature: 97.5 F Blood Pressure: 139/75 Pulse: 105 Respirations: 17 Pulse Ox (%): 96 - Physical Exam General: Alert, Oriented x3, Cooperative Respiratory: Clear to auscultation bilaterally, Diminished Cardiovascular: No edema, Regular rate/rhythm Assessment And Plan - Current Problems (Diagnosis) (1) Shoulder fracture, right Current Visit: Yes Status: Acute Plan: A comminuted impacted markedly displaced fracture right humeral head and neck Qualifiers: Encounter type: subsequent encounter (2) COPD (chronic obstructive pulmonary disease) with acute bronchitis Current Visit: No Status: Chronic Plan: Patient has terminal COPD renal function is improving more alert responsive c ooperative today prognosis very poor consider hospice care continue with bronchodilators discussed with
[2024-01-14 04:52] LABS: Absolute Lymphocytes (CBC) 1.8 K/uL (0.7-4.9); Absolute Monocytes 0.7 K/uL (0.1-1.3); Absolute Neutrophil 8.4 K/uL (1.8-8.0); Basophils % 0.2 % (0-1.3); Eosinophils % 0.2 % (0-4.4); Hematocrit 32.4 % (39.6-49.0); Hemoglobin 10.8 g/dL (13.6-17.9); Lymphocytes % 16.4 % (15.3-44.8); MCH 32.9 pg (27.0-35.0); MCHC 33.5 g/dL (32.0-36.0); MCV 98.5 fL (80-100); MPV 7.9 fL (7.6-11.3); Neutrophils % 77.2 % (41.7-73.7); Platelets 274 thou/uL (152-406); RBC Red Blood Cell Count 3.29 M/uL (4.33-5.43); Red Cell Distribution Width 14.9 % (12.1-15.2)
[2024-01-14 05:21] LABS: Albumin/Globulin Ratio 0.6 (1.1-1.8); Anion Gap 6.6 mEq/L (5.0-15.0); Bilirubin Total 0.5 mg/dL (0.2-1.0); Globulin 3.3 g/dL (2.3-3.5); Magnesium 1.5 mg/dL (1.6-2.4); Potassium 3.6 mEq/L (3.5-5.1); Protein, Total 5.3 g/dL (6.4-8.2)
[2024-01-14] MEDS: POTASSIUM 25 MEQ EFFERV TAB PO ONE (05:53)
[2024-01-14] MEDS: Magnesium Sulfate 2gm IVPB 2 G/50 ML BAG IV ONE (05:53)
--- NOTE | 2024-01-14 07:08 | RAD REPORT ---
EXAM DESCRIPTION: RAD - Chest Single View - 01/13/2024 10:26 pm CLINICAL HISTORY: eval aspiration pna COMPARISON: Chest Single View dated 01/11/2024; Chest Single View dated 01/06/2024; Chest Pa And Lat (2 Views) dated 08/22/2021; Chest Single View dated 02/24/2021 FINDINGS: Lines: None. Lungs: Worsening consolidation left mid lung and left lung base. Right lung is well aerated. Pleural: Enlarging left pleural effusion. Cardiac: Similar size and configuration . Mediastinum: Within normal limits. Bones: No acute fractures. Other: None IMPRESSION: Worsening aeration in the left lung likely reflecting increasing consolidation and enlar ging pleural effusion.
[2024-01-14] MEDS: Levofloxacin500mg IV 500 MG/100 ML BAG IV SCH (08:54)
--- NOTE | 2024-01-14 09:08 | P.PN ---
Date of Service: 01/14/24 Subjective: breathing okay on 3L NC. Denies any worsening problems tolerating liquid diet without issues. No obvious signs of difficulty swallowing asking for peanuts / regular food hematuria clearing up. salazar irrigated yesterday - obstructed temporarily from clot family deny prior h/o urinary retention, no prior hematuria - until salazar placed afebrile ROS: 10 point ROS as noted above, otherwise negative Physical Exam: GEN: Alert, oriented x2, NAD, dementia HEENT: Normal conjunctiva, sclera anicteric CV: Regular rate and rhythm, no edema Pulm: Nonlabored respirations on 3L NC, diminished at bases b/l, crackles/rales, expiratory wheeze ABD: Soft, nontender, nondistended Neuro: Normal speech, normal affect Salazar in place vitals reviewed Problem List: Acute hypoxic respiratory failure secondary to acute COPD exacerbation / bilateral pneumonia COPD with acute bronchitis left pleural effusion Acute metabolic encephalopathy Alzheimer's dementia ELIOT, improved Subacute right humeral impacted fracture Severe protein calorie malnutrition NIDDM2 BPH Hematuria, acute; secondary to trauma (salazar insertion) Acute hypoxic respiratory failure secondary to acute COPD exacerbation / bilateral pneumonia COPD with acute bronchitis left pleural effusion CT chest (01/10): mild bilateral lower lobe opacities - possible pneumonia, small pericardial effusion, small left pleural effusion. moderate COPD, subacute right humeral impacted fracture CXR (01/12): worsening consolidation left mid lung and left lung base. +enlarging left pleural effusion s/p BiPAP for few after admission, now tolerating 3L NC. wean oxygen as tolerated. Does not have oxygen setup at home. Follow blood cultures (01/10): NGTD given rocephin / levaquin in ED Continue empiric IV levaquin afebrile, leukocytosis resolved (01/13) Continue bronchodilators, nebs Dr. Roach, pulm consulted IV fluids dc'd 01/12 Previously NPO given concern for aspiration pneumonia. Tolerated bedside swallow study 01/12 without issues. tolerated liquids without issue yesterday. Advance to regular diet 01/13 Acute metabolic encephalopathy Alzheimer's dementia CT head negative for any acute findings Discussed hospice with the spouse and she is receptive, however she would like to wait and see how patient responds to treatment concerned he will not recall his limitations and fall again. He got significantly weaker and with ELIOT within the 1 week of fracture discussed SNF vs hospice; depending on what route she thinks he would want to pursue. continue neurochecks ELIOT, improved likely secondary to dehydration / decreased PO intake Creatinine improved with IV fluids continue to monitor renal function family deny h/o urinary retention / hematuria report significant decrease in PO intake at home over the last week suspect decreased PO intake / prerenal was cause of Eliot and has since resolved discussed possibility of obstruction lead to ELIOT - however unlikely - family deny any hematuria prior, and no h/o retention previously. Although patient has dementia, he denies any history as well Subacute right humeral impacted fracture Patient had a recent fall ~1 week ago. Imaging from ER visit 01/05 xray humerus (01/05): comminuted impacted markedly displaced fracture right humeral head and neck xray pelvis/hip (01/05): incidentally noted 14 mm nonspecific sclerotic lesion proximal right femur. osteoporosis. f/u x-ray imaging recommended in 3 months PRN analgesics Severe protein calorie malnutrition continue supplemental nutrition with glucerna shakes BID NIDDM2 accu-checks, SSI BPH Hematuria hematuria clearing up. More vasu/maroon in color Maintain salazar. Monitor urine output VTE: SCD Code: Full Dispo: SNF vs hospice vs home Pending breathing improves, wean oxygen PT eval
[2024-01-14] MEDS: Levofloxacin 250mg IV 250 MG/50 ML BAG IV ONE (09:44)
--- NOTE | 2024-01-14 13:06 | EKG ---
Test Date: 2024-01-13 Test Time: 21:56:53 Student Career Development Specialist: SREG MEASUREMENT RESULTS: Intervals: Rate: 115 DC: 136 QRSD: 86 QT: 290 QTc: 401 Dewey: P: 59 DC: 136 QRS: 48 T: 60 INTERPRETIVE STATEMENTS: Sinus tachycardia with occasional premature ventricular complexes Low voltage QRS Nonspecific ST and T wave abnormality Abnormal ECG Compared to ECG 01/11/2024 19:28:43 Ventricular premature complex(es) now present Low QRS voltage now present ST (T wave) deviation now present Electronically Signed On 01-14-24 13:05:46 CDT by Codey Arias
[2024-01-14] MEDS: ASPIRIN EC 81 MG TAB PO SCH (14:00)
[2024-01-14] MEDS: FINASTERIDE 5 MG TAB PO SCH (15:04)
[2024-01-14] MEDS: AMITRIPTYLINE 50 MG TAB PO SCH (15:05)
[2024-01-14] MEDS: VITAMIN D 5,000 UNIT CAP PO SCH (15:05)
[2024-01-14] MEDS: TAMSULOSIN 0.4 MG SR CAP PO SCH (15:05)
--- NOTE | 2024-01-14 17:03 | RAD REPORT ---
EXAM DESCRIPTION: CT - Abdomen Pelvis Wo Contrast - 01/14/2024 4:54 pm CLINICAL HISTORY: Abdominal pain. hematuria, ELIOT, salazar in place COMPARISON: Abdomen Angio dated 03/28/2023 TECHNIQUE: CT imaging of the abdomen and pelvis was performed without contrast. Solid organ, bowel a nd vascular assessment is limited due to lack of IV and oral contrast. All CT scans are performed using dose optimization technique as appropriate and may include automated exposure control or mA/KV adjustment according to patient size. FINDINGS: Moderate airspace consolidation is seen in the left lung base with small left pleural effu jah.Small right pleural effusion. The liver, spleen, pancreas, adrenal glands and kidneys are within normal limits for a limited non-co ntrast examination.Cholecystectomy clips. Aortoiliac atherosclerosis. 3.4 cm infrarenal abdominal aor tic aneurysm. No bowel obstruction, free air, free fluid or abscess. Prominent stool is seen throughout the colon. Appendectomy. Mild lumbar degenerative changes.Salazar catheter is present in the urinary bladder. IMPRESSION: Moderate airspace consolidation in the left base with small left pleural effusion. Moderate stool is present throughout the colon. A limited non-contrast examination was performed as detailed.
[2024-01-14] MEDS: GALANTAMINE HBR 8 MG PO SCH (20:48)
[2024-01-14] MEDS: INSULIN REGULAR (HUMAN) 100 UNIT/ML SQ SCH (21:12)
[2024-01-15 05:17] LABS: Hematocrit 31.4 % (39.6-49.0); Hemoglobin 10.4 g/dL (13.6-17.9); MCH 32.4 pg (27.0-35.0); MCHC 33.1 g/dL (32.0-36.0); MPV 7.7 fL (7.6-11.3); Platelets 250 thou/uL (152-406); RBC Red Blood Cell Count 3.21 M/uL (4.33-5.43); Red Cell Distribution Width 14.8 % (12.1-15.2)
[2024-01-15 05:24] LABS: Anion Gap 3.8 mEq/L (5.0-15.0); Magnesium 1.6 mg/dL (1.6-2.4); Potassium 3.8 mEq/L (3.5-5.1)
[2024-01-15] MEDS: MAGNESIUM SULFATE 1 gm IVPB 1 GM/100 ML BAG IV ONE (06:37)
[2024-01-15] MEDS: KCL 20 MEQ/100 mL IVPB 20 MEQ/100 ML BAG IV SCH (06:37)
[2024-01-15] MEDS: Levofloxacin 750mg IV 750 MG/150 ML BAG IV SCH (08:28)
[2024-01-15] MEDS ORDERED: ASPIRIN EC 81 MG TAB PO SCH (09:00)
[2024-01-15] MEDS ORDERED: TAMSULOSIN 0.4 MG SR CAP PO SCH (09:00)
[2024-01-15] MEDS ORDERED: CLOPIDOGREL 75 MG TABLET PO SCH (09:00)
--- NOTE | 2024-01-15 11:11 | P.PN ---
Date of Service: 01/15/24 Subjective: no new / worsening issues overnight worked with PT yesterday. tolerated some oob exercises with assistance family wishing to take patient to SNF on discharge. down to 2L NC afebrile ROS: 10 point ROS as noted above, otherwise negative Physical Exam: GEN: Alert, oriented x2, NAD, dementia HEENT: Normal conjunctiva, sclera anicteric CV: Regular rate and rhythm, no edema Pulm: Nonlabored respirations on 2L NC, diminished at bases b/l, crackles/rales, expiratory wheeze ABD: Soft, nontender, nondistended Neuro: Normal speech, normal affect Salazar in place vitals reviewed Problem List: Acute hypoxic respiratory failure secondary to acute COPD exacerbation / bilateral pneumonia COPD with acute bronchitis left pleural effusion Acute metabolic encephalopathy Alzheimer's dementia ELIOT, improved Subacute right humeral impacted fracture Severe protein calorie malnutrition NIDDM2 BPH Hematuria, acute; secondary to trauma (salazar insertion) Acute hypoxic respiratory failure secondary to acute COPD exacerbation / bilateral pneumonia COPD with acute bronchitis left pleural effusion CT chest (01/10): mild bilateral lower lobe opacities - possible pneumonia, small pericardial effusion, small left pleural effusion. moderate COPD, subacute right humeral impacted fracture CXR (01/12): worsening consolidation left mid lung and left lung base. +enlarging left pleural effusion CT abdomen (01/13): moderate airspace consolidation in left lung base. small bilateral pleural effusions. Moderate stool throughout colon. s/p BiPAP for few after admission, now tolerating 2L NC. wean oxygen as tolerated. Does not have oxygen setup at home. Follow blood cultures (01/10): NGTD given rocephin / levaquin in ED Continue empiric IV levaquin (01/11-) afebrile, leukocytosis resolved (01/13) Continue bronchodilators, nebs Dr. Roach, pulm consulted tolerating regular diet without issues Acute metabolic encephalopathy Alzheimer's dementia CT head negative for any acute findings Discussed hospice with the spouse and she is receptive, however she would like to wait and see how patient responds to treatment concerned he will not recall his limitations and fall again. He got significantly weaker and with ELIOT within the 1 week of fracture discussed SNF vs hospice; family have chosen SNF after seeing patient work with PT 01/13 continue neurochecks ELIOT, improved likely secondary to dehydration / decreased PO intake Creatinine improved with IV fluids continue to monitor renal function family deny h/o urinary retention / hematuria report significant decrease in PO intake at home over the last week suspect decreased PO intake / prerenal was cause of Eliot and has since resolved discussed possibility of obstruction lead to ELIOT - however unlikely - family deny any hematuria prior, and no h/o retention previously. Although patient has dementia, he denies any history as well Subacute right humeral impacted fracture Patient had a recent fall ~1 week ago. Imaging from ER visit 01/05 xray humerus (01/05): comminuted impacted markedly displaced fracture right humeral head and neck xray pelvis/hip (01/05): incidentally noted 14 mm nonspecific sclerotic lesion proximal right femur. osteoporosis. f/u x-ray imaging recommended in 3 months PRN analgesics Severe protein calorie malnutrition continue supplemental nutrition with glucerna shakes BID NIDDM2 accu-checks, SSI BPH Hematuria, acute; secondary to trauma (salazar insertion) hematuria clearing up. More vasu/maroon in color Maintain salazar. Monitor urine output resumed flomax, finasteride 01/13 VTE: SCD Code: Full Dispo: SNF; pending choice / approval Pending off oxygen, dispo PT eval
--- NOTE | 2024-01-15 14:05 | EKG ---
Test Date: 2024-01-13 Test Time: 21:55:47 Lead Cargo Mover: SREG MEASUREMENT RESULTS: Intervals: Rate: 117 MN: 142 QRSD: 76 QT: 310 QTc: 432 Mauldin: P: 66 MN: 142 QRS: 48 T: 60 INTERPRETIVE STATEMENTS: Sinus tachycardia Low voltage QRS Nonspecific ST and T wave abnormality Abnormal ECG Compared to ECG 01/11/2024 19:28:43 Low QRS voltage now present ST (T wave) deviation now present Electronically Signed On 01-15-24 14:00:42 CDT by Codey Arias
[2024-01-16 05:18] LABS: Absolute Eosinophils 0.1 K/uL (0-0.5); Absolute Lymphocytes (CBC) 1.7 K/uL (0.7-4.9); Absolute Monocytes 0.5 K/uL (0.1-1.3); Absolute Neutrophil 5.6 K/uL (1.8-8.0); Basophils % 0.4 % (0-1.3); Hematocrit 30.2 % (39.6-49.0); Hemoglobin 10.1 g/dL (13.6-17.9); Lymphocytes % 21.4 % (15.3-44.8); MCH 32.4 pg (27.0-35.0); MCHC 33.4 g/dL (32.0-36.0); MCV 97.1 fL (80-100); MPV 7.5 fL (7.6-11.3); Monocytes % 6.7 % (3.3-12.3); Neutrophils % 70.5 % (41.7-73.7); Platelets 237 thou/uL (152-406); RBC Red Blood Cell Count 3.11 M/uL (4.33-5.43); Red Cell Distribution Width 14.6 % (12.1-15.2)
[2024-01-16 05:32] LABS: Magnesium 1.6 mg/dL (1.6-2.4)
[2024-01-16 08:31] VITALS: TEMP 97.5
[2024-01-16] MEDS ORDERED: MAGNESIUM SULFATE 1 gm IVPB 1 GM/100 ML BAG IV ONE (09:00)
--- NOTE | 2024-01-16 09:16 | P.DS ---
Admission Date: 01/11/24 Discharge Date: 01/16/24 Disposition: TRANSFER TO SNF - REHAB Discharge Condition: GOOD Reason for Admission: COPD Consultations: Pulmonology - Dr. Roach Brief History of Present Illness: 78 yo M, PMH: diabetes, hypertension, hyperlipidemia, CAD Patient came to ER with shortness of breath. Patient is on BiPAP at the time of interview hence could not offer much history hence most of the history is obtained from the chart review and also talking to the ER physician. states patient seen here a few days ago, had right humeral fracture, sent home. Initially did okay but as time went on patient began to decompensate, generalized weakness, not able to get out of bed due to weakness, .No fever. Reports shortness of breath that got worse today, unable to get up and uses nebulizer or take his medication. EMS was called and he was found to be hypoxic and placed patient on BiPAP Hospital Course: Problem List: Acute hypoxic respiratory failure secondary to acute COPD exacerbation / bilateral pneumonia COPD with acute bronchitis left pleural effusion Acute metabolic encephalopathy Alzheimer's dementia ELIOT, improved Subacute right humeral impacted fracture Severe protein calorie malnutrition NIDDM2 BPH Hematuria, acute; secondary to trauma (salazar insertion); improving Physician Discharge Instructions: Patient presented with worsening dyspnea, generalized weakness, confusion, and was found to have an acute COPD exacerbation complicated by bilateral (L>R) pneumonia seen on chest xray/CT chest. After falling and sustaining a right humeral fracture [address] Roach, reel worker, was consulted. Patient was given bronchodilators, nebs, along with empiric levaquin and had improvement of his symptoms. Patient is to complete 7 more days of oral levaquin on discharge. Patient was feeling better, breathing more comfortably, hematuria clearing up, tolerating regular diet without issues and was deemed stable to [facility], where patient can work on strength / endurance prior to returning home. Patient required oxygen supplementation throughout hospitalization, initially needing ~4L NC and was able to be deescalated to 2L NC over time as patient improved. Patient will continue oxygen supplementation at SNF as needed with the goal of weaning off over time as tolerable as patient did not use home oxygen prior to this hospitalization. Patient was noted to have an ELIOT on admission with serum creatinine on 2.41 and improved with IV fluids. Renal function remained stable off IV fluids since 01/12. ELIOT prerenal secondary to dehydration / decreased PO intake as family reports significant decrease in PO intake at home over the last week. Salazar was placed in ED for strict i/o's. Patient was also noted to have an acute hematuria that started after salazar insertion in ED. He did briefly require small NS irrigation of salazar qshift. Urine improved and was clearing up. His plavix was briefly held with intention to restart in next day or two. Suspect hematuria secondary to trauma from salazar insertion. Recommend continue salazar for 1-2 days to ensure no further bleeding/clots and has good bowel movement to optimize prior to removal. Blood pressure has been normotensive off his home lisinopril / hydrochlorothiazide. Advised to continue to hold off on lisinopril / hydrochlorothiazide for now. Check blood pressure around the same time each day. If systolic blood pressure is > 150, can restart lisinorpil. Keep daily diary of blood pressure readings to follow up appointments in case antihypertensives need adjustments Incidentally seen on xray pelvis/hip from ER visit on 01/06/24: 14 mm nonspecific sclerotic lesion proximal right femur. osteoporosis. Advised patient to follow up with PCP for further discussion and to consider repeat x-ray imaging in 3 months to follow up on findings. Medications: Hold off on plavix today given hematuria. anticipate okay to restart tomorrow hold off on lisinopril / hydrochlorothiazide for now. levaquin for 1 week daily stool softener continue other home medications as previously prescribed Follow up: PCP 3-5 days Pulmonology in 1-2 weeks Please call to schedule / confirm appointments Physical Exam: GEN: Alert, oriented x2, NAD, dementia HEENT: Normal conjunctiva, sclera anicteric CV: Regular rate and rhythm, no edema Pulm: Nonlabored respirations on 2L NC, crackles/rales, expiratory wheeze ABD: Soft, nontender, nondistended Neuro: Normal speech, normal affect Vital Signs/Physical Exam: Temp Pulse Resp BP Pulse Ox 97.5 F 101 H 19 117/67 90 L 01/16/24 08:00 01/16/24 08:00 01/16/24 08:00 01/16/24 08:00 01/16/24 08:00 Laboratory Data at Discharge: WBC 8.00 thou/uL (4.3-10.9) 01/16/24 05:02 Hgb 10.1 g/dL (13.6-17.9) L 01/16/24 05:02 Hct 30.2 % (39.6-49.0) L 01/16/24 05:02 Plt Count 237 thou/uL (152-406) 01/16/24 05:02 PT 12.6 SECONDS (9.5-12.5) H 01/11/24 20:30 INR 1.15 01/11/24 20:30 APTT 25.1 SECONDS (24.3-36.9) 01/11/24 20:30 Sodium 140 mEq/L (136-145) 01/16/24 05:02 Potassium 4.0 mEq/L (3.5-5.1) 01/16/24 05:02 BUN 19 mg/dL (7-18) H 01/16/24 05:02 Creatinine 0.87 mg/dL (0.70-1.30) 01/16/24 05:02 Glucose 137 mg/dL (74-106) H 01/16/24 05:02 Phosphorus 3.5 mg/dL (2.5-4.9) 01/12/24 02:25 Magnesium 1.6 mg/dL (1.6-2.4) 01/16/24 05:02 Total Bilirubin 0.5 mg/dL (0.2-1.0) 01/14/24 04:10 AST 22 U/L (15-37) 01/14/24 04:10 ALT 30 U/L (16-61) 01/14/24 04:10 Alkaline Phosphatase 60 U/L (45-117) 01/14/24 04:10 Home Medications: Albuterol Sulfate [Proair Hfa] 8.5 gm IH DAILY 01/14/24 Amitriptyline HCl 50 mg PO DAILY 01/14/24 Aspirin [Aspirin EC 81 MG] 81 mg PO DAILY 01/14/24 Cholecalciferol (Vitamin D3) [D3-5000] 125 mcg PO DAILY 01/14/24 Clopidogrel Bisulfate [Plavix*] 75 mg PO DAILY 01/14/24 Finasteride 5 mg PO DAILY 01/14/24 Fluticasone Propion/Salmeterol [Wixela 100-50 Inhub] 1 each IH BID 01/14/24 Galantamine HBr [Galantamine ER] 4 mg PO BID 01/14/24 Lisinopril [Zestril] 10 mg PO DAILY 01/14/24 Lovastatin 20 mg PO DAILY 01/14/24 Mecobalamin [B12 Active] 500 mcg PO DAILY 01/14/24 Metformin HCl 1,000 mg PO BID 01/14/24 Multivitamin/Iron/Folic Acid [Centrum Adults Tablet] 1 each PO DAILY 01/14/24 Tamsulosin HCl 0.4 mg PO DAILY 01/14/24 Trazodone HCl 100 mg PO DAILY 01/14/24 hydroCHLOROthiazide [Hydrochlorothiazide] 25 mg PO DAILY 01/14/24 levoFLOXacin [Levaquin] 750 mg PO DAILY 7 Days #7 tab 01/16/24 New Medications: levoFLOXacin [Levaquin] 750 mg PO DAILY 7 Days #7 tab Physician Discharge Instructions: Physician Discharge Instructions: Patient presented with worsening dyspnea, generalized weakness, confusion, and was found to have an acute COPD exacerbation complicated by bilateral (L>R) pneumonia seen on chest xray/CT chest. After falling and sustaining a right humeral fracture [address] Roach, reel worker, was consulted. Patient was given bronchodilators, nebs, along with empiric levaquin and had improvement of his symptoms. Patient is to complete 7 more days of oral levaquin on discharge. Patient was feeling better, breathing more comfortably, hematuria clearing up, tolerating regular diet without issues and was deemed stable to [facility], where patient can work on strength / endurance prior to returning home. Patient required oxygen supplementation throughout hospitalization, initially needing ~4L NC and was able to be deescalated to 2L NC over time as patient improved. Patient will continue oxygen supplementation at SNF as needed with the goal of weaning off over time as tolerable as patient did not use home oxygen prior to this hospitalization. Patient was noted to have an ELIOT on admission with serum creatinine on 2.41 and improved with IV fluids. Renal function remained stable off IV fluids since 01/12. ELIOT prerenal secondary to dehydration / decreased PO intake as family reports significant decrease in PO intake at home over the last week. Salazar was placed in ED for strict i/o's. Patient was also noted to have an acute hematuria that started after salazar insertion in ED. He did briefly require small NS irrigation of salazar qshift. Urine improved and was clearing up. His plavix was briefly held with intention to restart in next day or two. Suspect hematuria secondary to trauma from salazar insertion. Recommend continue salazar for 1-2 days to ensure no further bleeding/clots and has good bowel movement to optimize prior to removal. Blood pressure has been normotensive off his home lisinopril / hydrochlorothiazide. Advised to continue to hold off on lisinopril / hydrochlorothiazide for now. Check blood pressure around the same time each day. If systolic blood pressure is > 150, can restart lisinorpil. Keep daily diary of blood pressure readings to follow up appointments in case antihypertensives need adjustments Incidentally seen on xray pelvis/hip from ER visit on 01/06/24: 14 mm nonspecific sclerotic lesion proximal right femur. osteoporosis. Advised patient to follow up with PCP for further discussion and to consider repeat x-ray imaging in 3 months to follow up on findings. Medications: Hold off on plavix today given hematuria. anticipate okay to restart tomorrow hold off on lisinopril / hydrochlorothiazide for now. levaquin for 1 week daily stool softener continue other home medications as previously prescribed Follow up: PCP 3-5 days Pulmonology in 1-2 weeks Followup: Godwin Roach MD [ACTIVE - CAN ADMIT] - 1-2 Weeks Manuel Sen MD [Primary Care Provider] - 1-2 Weeks Time spent managing pt's care (in minutes): 45
[2024-01-16 12:46] VITALS: BP 96/55
[2024-01-16 14:41] VITALS: O2SAT 93
== END 2024-01-16 13:10 | DRG 193 ==
LOC: ER 19:07 → ERHOLD 22:49 → 2ND 01-12 00:44
PROVIDERS: ADMIT Family Medicine; ATTEND Hospitalist
PROC: 06HY33Z Insertion of Infusion Device into Lower Vein, Percutaneous Approach (ICD-10-PCS; principal; 2024-01-11)
PROC: 5A09557 Assistance with Respiratory Ventilation, Greater than 96 Consecutive Hours, Continuous Positive Airway Pressure (ICD-10-PCS; 2024-01-11)
PROC: 4A033R1 Measurement of Arterial Saturation, Peripheral, Percutaneous Approach (ICD-10-PCS; 2024-01-11)
DX: J18.9 Pneumonia, unspecified organism (principal); E43 Unspecified severe protein-calorie malnutrition; G93.41 Metabolic encephalopathy; J96.01 Acute respiratory failure with hypoxia; J44.0 Chronic obstructive pulmonary disease with (acute) lower respiratory infection; N17.9 Acute kidney failure, unspecified; E87.20 Acidosis, unspecified; J44.1 Chronic obstructive pulmonary disease with (acute) exacerbation; R64 Cachexia; Z68.1 Body mass index [BMI] 19.9 or less, adult; T83.83XA Hemorrhage due to genitourinary prosthetic devices, implants and grafts, initial encounter; J20.9 Acute bronchitis, unspecified; E78.5 Hyperlipidemia, unspecified; I10 Essential (primary) hypertension; E86.0 Dehydration; E11.9 Type 2 diabetes mellitus without complications; N40.0 Benign prostatic hyperplasia without lower urinary tract symptoms; I25.10 Atherosclerotic heart disease of native coronary artery without angina pectoris; S42.291D Other displaced fracture of upper end of right humerus, subsequent encounter for fracture with routine healing; G30.9 Alzheimer's disease, unspecified; F02.80 Dementia in other diseases classified elsewhere, unspecified severity, without behavioral disturbance, psychotic disturbance, mood disturbance, and anxiety; I25.2 Old myocardial infarction; F17.200 Nicotine dependence, unspecified, uncomplicated; R31.9 Hematuria, unspecified; Z88.1 Allergy status to other antibiotic agents; Z95.5 Presence of coronary angioplasty implant and graft; Z79.82 Long term (current) use of aspirin; Z79.84 Long term (current) use of oral hypoglycemic drugs; Z79.899 Other long term (current) drug therapy; Y84.8 Other medical procedures as the cause of abnormal reaction of the patient, or of later complication, without mention of misadventure at the time of the procedure
CPT/HCPCS: 36415; 51702; 70450; 71045; 71250; 74176; 80048; 80053; 81001; 82805; 82947; 83605; 83735; 84100; 85025; 85027; 85610; 85730; 87040; 93005; 94660; 94760; 96365; 96367; 96368; 97116; 97161; 97530; 99285; J0696; J1815; J3475; J3480; J7030; J7605; J7614; J7644